=== PATIENT | male | born 1950 | race Caucasian/White ===

== ENCOUNTER 2020-06-29 12:27 | Outpatient (REF) | payer MEDICARE, BC, SELFPAY ==
[2020-06-29 14:49] LABS: Prostate Specific Antigen < 0.05 ng/mL (<0.05-4.0)
== END 2020-06-29 12:28 | disposition home or self-care (01) ==
LOC: HO.HMGCLDS 12:27
PROVIDERS: PCP Nurse Practitioner Family; Visit Provider Urology
DX: C61 Malignant neoplasm of prostate (principal); Z12.5 Encounter for screening for malignant neoplasm of prostate
CPT/HCPCS: 84153

== ENCOUNTER → 2020-07-28 09:33 | Outpatient (BNVA) | payer MEDICARE, BC, SELFPAY | PROVIDERS: PCP Nurse Practitioner Family; Referring Provider Nurse Practitioner Family; Visit Provider Internal Medicine Cardiovascular Disease | DX: I35.0 Nonrheumatic aortic (valve) stenosis (principal); I25.10 Atherosclerotic heart disease of native coronary artery without angina pectoris; Z79.82 Long term (current) use of aspirin; Z79.899 Other long term (current) drug therapy | CPT/HCPCS: 93005; 99212 ==

== ENCOUNTER 2020-08-08 08:06 | Outpatient (REF) | payer MEDICARE, BC, SELFPAY ==
[2020-08-08 11:29] LABS: MANUAL DIFF FLAG NO
[2020-08-08 11:38] LABS: Basophils Percent Auto 0.4 % (0-2); Eosinophils Absolute Auto 0.4 X10*3/uL (0.0-0.4); Eosinophils Percent Auto 5.7 % (0-4); Hematocrit 44.5 % (42-52); Hemoglobin 14.1 g/dl (14.0-18.0); Imm Gran Abs Auto 0.02 X10*3/uL (0.00-0.03); Imm Gran Pct Auto 0.3 % (0.0-0.4); Lymphocytes Absolute Auto 1.6 X10*3/uL (1.2-4.9); Lymphocytes Percent Auto 21.8 % (20-40); Mean Corpuscular HGB Conc 31.7 g/dl (31.0-36.0); Mean Corpuscular Hemoglobin 31.8 pg (27.0-33.0); Mean Corpuscular Volume 100.5 fL (80-98); Mean Platelet Volume 9.4 fL (9.4-12.4); Monocytes Absolute Auto 0.9 X10*3/uL (0.1-1.2); Monocytes Percent Auto 12.8 % (2-11); Neutrophils Absolute Auto 4.3 X10*3/uL (2.0-8.3); Platelet Count 273 X10*3/uL (160-400); Red Blood Count 4.43 X10*6/uL (4.60-5.80); White Blood Count 7.3 X10*3/uL (4.8-10.8)
[2020-08-08 12:17] LABS: TSH reflex Free T4 2.14 mIU/mL (0.32-4.0)
[2020-08-08 12:18] LABS: Anion Gap 13 (12-20); Blood Urea Nitrogen 20 mg/dL (9-16); Calcium 9.2 mg/dL (8.4-10.2); Carbon Dioxide 28 mmol/L (22-29); Chloride 104 mmol/L (96-108); Cholesterol 233 mg/dL; Estimated Glomerular Filt Rate > 60; Glucose Fasting 83 mg/dL (60-99); HDL Cholesterol 60 mg/dL; LDL Cholesterol Calculated 128 mg/dl; Potassium 3.8 mmol/l (3.3-5.1); Sodium 141 mmol/L (135-145); Triglycerides 229 mg/dL
== END 2020-08-08 08:07 | disposition home or self-care (01) ==
LOC: HO.HMGCLDS 08:06
PROVIDERS: PCP Nurse Practitioner Family; Visit Provider Internal Medicine Cardiovascular Disease
DX: E78.5 Hyperlipidemia, unspecified (principal); I10 Essential (primary) hypertension
CPT/HCPCS: 36415; 80048; 80061; 84443; 85025

== ENCOUNTER → 2020-08-17 12:58 | Outpatient (REF) | payer MEDICARE, BC, SELFPAY ==
--- NOTE | 2020-08-17 13:02 | CA_ITS ---
Transthoracic Echocardiogram Patient (Last, First, Middle): Jose Jones A Gender: Male Date of : 1950 Age: 70 Procedure Date: 08/17/2020 Procedure Type: Transthoracic Echocardiogram Location: OP Height: 167.64 cm Weight: 88.45 kg BSA: 1.98 m2 Heart Rate: bpm BP: 138 / 80 mmHg Inclusion Teacher: Referring MD: Kevyn Chapa MD Symptoms: I10 - Essential (primary) hypertension Study Quality: Fair ECG Rhythm: Sinus Conclusions: - The left ventricular systolic function is normal. The visually estimated ejection fraction is between 65-70%. - The basal inferior segment is akinetic. - There is moderate aortic valve stenosis. Findings Left Ventricle Normal left ventricular cavity size. There is moderately increased left ventricular wall thickness. The left ventricular systolic function is normal. The visually estimated ejection fraction is between 65-70%. Evidence suggests grade I (mild) diastolic dysfunction. Wall Motion Rest Echo Findings The basal inferior segment is akinetic. Right Ventricle Normal right ventricular cavity size and systolic function. Atria Both atria are normal in size. Aortic Valve There is moderate calcification of the aortic valve. There is moderate aortic valve stenosis. The peak aortic velocity is 3.46 m/s with a calculated peak gradient of 48 mmHg. The mean gradient is 27 mmHg. The aortic valve area is 1.13 cm2. There is trace (trivial) aortic valve regurgitation. Mitral Valve The mitral valve appears normal. There is trace mitral valve regurgitation. There is no mitral valve stenosis. Pulmonic Valve The pulmonic valve was not well visualized. Tricuspid Valve There is trace tricuspid valve regurgitation. The pulmonary artery systolic pressure is normal. Great Vessels The aorta was not well visualized. Small plaque is seen in the sino tubular ridge. Venous The inferior vena cava was not well visualized. Pericardium/Pleural There is no evidence of pericardial effusion. Prior Study Comparison No significant change compared to prior study dated: 07/29/2019. Measurements 2D Linear Measurements IVSd: 1.40 0.6-0.9/0.6-1.0 cm LVIDd: 4.78 3.9-5.3/4.2-5.9 cm LVIDd Index: 2.41 2.4-3.2/2.2-3.1 cm/m2 LVIDs: 3.10 2.0-3.6 cm LVPWd: 1.41 0.7-1.1 cm Ao Root: 3.80 2.1-3.5 cm LA Diam: 4.30 2.7-3.8/3.0-4.0 cm LAIDs Index: 2.17 1.5-2.3 cm/m2 LV Mass: 341.15 67-162/88-224 g LV Mass Index: 172.30 43-95/49-115 g/m2 LVOT Diam: 2.30 3.0+(-)1.3 cm Mitral Valve MV Pk E: 0.57 MV PK A: 0.86 MV Decel Time: 180.00 E/A: 0.70 E'Lateral: 7.54 E'Medial: 5.51 E/E' Med: 10.40 E/E' Lat: 7.60 PHT: 53.00 MVA PHT: 4.15 Decel [place]: 3.19 Aortic Valve AoV Pk John: 3.46 AoV Mn John: 2.44 AoV VTI: 0.75 AoV Pk Grad: 48.00 Aov Mn Grad: 27.00 SALIANS Cont.VTI: 1.13 LVOT LVOT Pk John: 0.98 LVOT Mn John: 0.63 LVOT VTI: 0.21 LVOT Pk Grad: 4.00 LVOT Mn Grad: 2.00 LVOT Diam: 2.30 LVOT Area: 4.15 Diastolic Function MV Pk E: 0.57 MV Pk A: 0.86 E/A: 0.70 E'Medial: 5.51 E/E' Med: 10.40 E' Laterial: 7.54 E/E' Lat: 7.60 Tricuspid Valve TR Pk John: 1.85 TR Pk Grad: 14.00 RA Press: 3.00 RVSP: 17.00 Great Vessels Aorta Ao Root-2D: 3.80 2.0-3.7 cm Pulmonary Valve PV Pk John: 1.47 Peak PV Grad: 9.00 Updated in Other Vendor System with Status of Final Zeb Zepeda MD electronically signed on 08/18/2020 10:39:45 AM with status of Final
== END ==
LOC: HO.CARD 12:58
PROVIDERS: Visit Provider Internal Medicine Cardiovascular Disease
DX: I25.10 Atherosclerotic heart disease of native coronary artery without angina pectoris (principal); I35.0 Nonrheumatic aortic (valve) stenosis; I10 Essential (primary) hypertension
CPT/HCPCS: 93306

== ENCOUNTER 2021-01-05 12:23 | Outpatient (REF) | payer MEDICARE, BC, SELFPAY ==
[2021-01-05 14:42] LABS: Prostate Specific Antigen < 0.05 ng/mL (<0.05-4.0)
== END 2021-01-05 12:24 | disposition home or self-care (01) ==
LOC: HO.HMGCLDS 12:23
PROVIDERS: PCP Nurse Practitioner Family; Visit Provider Urology
DX: C61 Malignant neoplasm of prostate (principal); Z12.5 Encounter for screening for malignant neoplasm of prostate
CPT/HCPCS: 36415; 84153

== ENCOUNTER 2021-04-12 10:59 | Outpatient (REF) | payer MEDICARE, BC, SELFPAY | END 2021-04-12 11:00 | disposition home or self-care (01) | LOC: HO.LAB 10:59 | PROVIDERS: Visit Provider Nurse Practitioner Family | DX: Z20.822 Contact with and (suspected) exposure to COVID-19 (principal); R05 Cough | CPT/HCPCS: U0003; U0005 ==

== ENCOUNTER 2021-04-12 11:22 | Outpatient (REF) | payer MEDICARE, BC, SELFPAY ==
--- NOTE | ~2021-04-12 | XR_ITS ---
EXAMINATION: XR CHEST CLINICAL INFORMATION: Cough COMPARISON: None TECHNIQUE: 2 views of the chest were obtained. FINDINGS: The cardiac silhouette is enlarged. 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 Hilar and mediastinal contours are unremarkable. The lung volumes are low. The lungs are clear. There is no pleural effusion or pneumothorax. There are degenerative changes of the spine. There is increased thoracolumbar kyphosis. XR/XR chest 2V IMPRESSION: No evidence for acute disease in the chest. Low lung volumes and post-CABG changes.
== END 2021-04-12 11:23 | disposition home or self-care (01) ==
LOC: HO.HMGCX 11:22
PROVIDERS: PCP Nurse Practitioner Family; Visit Provider Nurse Practitioner Family
DX: Z13.89 Encounter for screening for other disorder (principal)
CPT/HCPCS: 71046

== ENCOUNTER 2021-06-28 08:13 | Outpatient (REF) | payer MEDICARE, BC, SELFPAY ==
[2021-06-28 11:32] LABS: Appearance Urine CLEAR; Color Urine YELLOW; Glucose Urine UA NEG (NEG); Leukocyte Esterase Urine NEG (NEG); Nitrite Urine NEG (NEG); Specific Gravity - Urine 1.025 (1.005-1.025); Urine Blood NEG (NEG); Urine Ketones NEG (NEG); Urine Protein NEG (NEG-TRACE)
[2021-06-28 11:56] LABS: Anion Gap 13 (12-20); Carbon Dioxide 26 mmol/L (22-29); Chloride 107 mmol/L (96-108); Potassium 4.5 mmol/L (3.3-5.1); Sodium 141 mmol/L (135-145)
[2021-06-28 11:57] LABS: Alanine Aminotransferase 25 U/L (0-40); Alkaline Phosphatase 41 U/L (39-117); Aspartate Amino Transferase 31 U/L (5-37); Bilirubin Total 0.9 mg/dL (0.0-1.0); Blood Urea Nitrogen 14 mg/dL (9-16); Calcium 9.8 mg/dL (8.4-10.2); Cholesterol 212 mg/dL; Estimated Glomerular Filt Rate > 60; Glucose Fasting 96 mg/dL (60-99); HDL Cholesterol 51 mg/dL; LDL Cholesterol Calculated 130 mg/dl; Total Protein 6.8 g/dL (6.5-8.0); Triglycerides 156 mg/dL
[2021-06-28 12:19] LABS: Prostate Specific Antigen < 0.05 ng/mL (<0.05-4.0); TSH reflex Free T4 1.78 uIU/mL (0.32-4.0)
== END 2021-06-28 08:14 | disposition home or self-care (01) ==
LOC: HO.HMGCLDS 08:13
PROVIDERS: PCP Nurse Practitioner Family; Visit Provider Physician Assistant
DX: C61 Malignant neoplasm of prostate (principal); I10 Essential (primary) hypertension
CPT/HCPCS: 36415; 80053; 80061; 81003; 84153; 84443

== ENCOUNTER → 2021-07-27 10:12 | Outpatient (BNVA) | payer MEDICARE, BC, SELFPAY | PROVIDERS: PCP Nurse Practitioner Family; Referring Provider Nurse Practitioner Family; Visit Provider Internal Medicine Cardiovascular Disease ==

== ENCOUNTER → 2021-08-02 07:38 | Outpatient (REF) | payer MEDICARE, BC, SELFPAY ==
--- NOTE | 2021-08-02 07:41 | CA_ITS ---
Transthoracic Echocardiogram Patient (Last, First, Middle): Jose Joens A Gender: Male Date of : 1950 Age: 71 Procedure Date: 08/02/2021 Procedure Type: Transthoracic Echocardiogram Location: OP Height: 165.1 cm Weight: 88.45 kg BSA: 1.96 m2 Heart Rate: bpm BP: 138 / 80 mmHg Manager Of Customer Billing: Referring MD: Kevyn Chapa MD Histologist: Kevyn Chapa MD Symptoms: I35.0 - Nonrheumatic aortic (valve) stenosis Study Quality: Fair ECG Rhythm: Sinus Conclusions: - 1. Normal LV systolic function with impaired relaxation filling pattern with regional wall motion abnormality of the inferior wall 2. Severe aortic stenosis 3. Normal RV systolic pressure 4. No gross pericardial effusion Findings Left Ventricle Normal left ventricular size and systolic function. There is mildly increased left ventricular wall thickness. The visually estimated ejection fraction is between 55-60%. Spectral Doppler is indicative of an impaired relaxation filling pattern. E/E prime ratio is between 8 and 15 consistent with indeterminate filling pressures. Wall Motion Rest Echo Findings The basal inferior, mid inferior, and basal inferoseptal segments are akinetic. All other scored wall segments showed normal motion. Right Ventricle Normal right ventricular cavity size and systolic function. Atria The left atrium is likely dilated. Interatrial shunt cannot be excluded. The right atrium is normal in size. Aortic Valve The aortic valve was not well visualized. There is moderate calcification of the aortic valve. There is severe aortic valve stenosis. The peak aortic gradient is 52 mmHg.The mean gradient is 35 mmHg. The aortic valve area is 0.85 cm2. There is no aortic valve regurgitation. Calculated dimensionless index is 0.21, findings consistent with severe aortic stenosis. Mitral Valve The mitral valve was not well visualized. There is mild anterior mitral leaflet thickening. There is mild mitral annular calcification. There is trace mitral valve regurgitation. There is no mitral valve stenosis. Pulmonic Valve The pulmonic valve was not well visualized. Tricuspid Valve Likely normal tricuspid valve structure and function. There is trace tricuspid valve regurgitation. The right ventricular systolic pressure is normal. The right ventricular systolic pressure is 23 mmHg. There is no evidence of pulmonary hypertension. Great Vessels All visible segments of the aorta are normal in size. The pulmonary artery was not well visualized. Venous The inferior vena cava is normal in size. Pericardium/Pleural There is no evidence of pericardial effusion. Prior Study Comparison Changes noted compared to prior study dated: 08/17/2020. Aortic stenosis is severe range Measurements 2D Linear Measurements IVSd: 1.38 0.6-0.9/0.6-1.0 cm LVIDd: 4.48 3.9-5.3/4.2-5.9 cm LVIDd Index: 2.29 2.4-3.2/2.2-3.1 cm/m2 LVIDs: 3.07 2.0-3.6 cm LVPWd: 1.34 0.7-1.1 cm Ao Root: 3.50 2.1-3.5 cm LA Diam: 4.00 2.7-3.8/3.0-4.0 cm LAIDs Index: 2.04 1.5-2.3 cm/m2 LV Mass: 294.67 67-162/88-224 g LV Mass Index: 150.34 43-95/49-115 g/m2 LVOT Diam: 2.30 3.0+(-)1.3 cm 2D Systolic Function EF 4C: 47.20 >55% EF 2C: 33.30 >55% Mitral Valve MV Pk E: 0.59 MV PK A: 0.99 MV Decel Time: 211.00 E/A: 0.60 E'Lateral: 7.72 E'Medial: 4.03 E/E' Med: 14.60 E/E' Lat: 7.60 PHT: 62.00 MVA PHT: 3.55 Decel [place]: 2.78 Aortic Valve AoV Pk John: 3.62 AoV Mn John: 2.88 AoV VTI: 0.92 AoV Pk Grad: 52.00 Aov Mn Grad: 35.00 SALINAS Cont.VTI: 0.85 LVOT LVOT Pk John: 0.80 LVOT Mn John: 0.48 LVOT VTI: 0.19 LVOT Pk Grad: 3.00 LVOT Mn Grad: 1.00 LVOT Diam: 2.30 LVOT Area: 4.15 Diastolic Function MV Pk E: 0.59 MV Pk A: 0.99 E/A: 0.60 E'Medial: 4.03 E/E' Med: 14.60 E' Laterial: 7.72 E/E' Lat: 7.60 Right Ventricle TAPSE (mm): 19.00 Tricuspid Valve TR Pk John: 2.25 TR Pk Grad: 20.00 RA Press: 3.00 RVSP: 23.00 Great Vessels Aorta Ao Root-2D: 3.50 2.0-3.7 cm Ao Asc: 3.70 2.1-3.4 cm Pulmonary Valve PV Pk John: 1.05 Peak PV Grad: 4.00 Updated in Other Vendor System with Status of Final Kevyn Chapa MD electronically signed on 08/04/2021 10:04:02 AM with status of Final
== END ==
LOC: HO.CARD 07:38
PROVIDERS: Visit Provider Internal Medicine Cardiovascular Disease
DX: I35.0 Nonrheumatic aortic (valve) stenosis (principal); I25.10 Atherosclerotic heart disease of native coronary artery without angina pectoris; Z79.899 Other long term (current) drug therapy
CPT/HCPCS: 93005; 93306; 99212

== ENCOUNTER → 2021-08-09 09:23 | Outpatient (BNVA) | payer MEDICARE, BC, SELFPAY | PROVIDERS: PCP Nurse Practitioner Family; Referring Provider Nurse Practitioner Family; Visit Provider Internal Medicine Cardiovascular Disease | DX: I35.0 Nonrheumatic aortic (valve) stenosis (principal); I25.10 Atherosclerotic heart disease of native coronary artery without angina pectoris | CPT/HCPCS: 99212 ==

== ENCOUNTER → 2021-08-18 08:23 | Outpatient (REF) | payer MEDICARE, BC, SELFPAY ==
--- NOTE | 2021-08-18 08:25 | CA_ITS ---
Acquisition Time: 2021-08-18 09:23:29 Total Exercise Time: 00:06:00 Test Indications: SEVERE AORTIC STENOSIS Medications: Protocol: LINNETTE Max HR: 144 BPM 95% of Pred: 151 BPM Max BP: 138/080 mmHG Max Work Load: 7.0 METS Exercise stress test with exercise 6 min of Linnette protocol, with mild sob and request to stop, with no chest discomfort or lightheadedness, with isolated PVC, with blunted BP response to exercise, BP 128/80 just prior to exercise and 132/70 at peak exercise, then 138/80 at 3 min recovery, with EKG changes meeting criteria for ischemia: horizontal to downsloping ST depressions, 1 mm V5, 1.5 mm aVL, V3, V4, 2 mm lead I, 3mm V2 with slow gradual improvement back to baseline in recovery. His mild sob quickly improved with rest. Test reviewed with Dr Chapa. Referred By: Kevyn Chapa Overread By: BRETT HAWK
== END ==
LOC: HO.CARD 08:23
PROVIDERS: Visit Provider Internal Medicine Cardiovascular Disease
DX: I35.0 Nonrheumatic aortic (valve) stenosis (principal)
CPT/HCPCS: 93017

== ENCOUNTER 2021-09-28 08:06 | Outpatient (REF) | payer MEDICARE, BC, SELFPAY ==
[2021-09-28 11:30] LABS: Appearance Urine CLEAR; Color Urine YELLOW; Glucose Urine UA NEG (NEG); Leukocyte Esterase Urine NEG (NEG); Nitrite Urine NEG (NEG); PH 6.5 (5.0-8.0); Urine Blood NEG (NEG); Urine Ketones NEG (NEG); Urine Protein NEG (NEG-TRACE)
[2021-09-28 12:04] LABS: Alanine Aminotransferase 28 U/L (0-40); Alkaline Phosphatase 38 U/L (39-117); Anion Gap 9 (12-20); Aspartate Amino Transferase 29 U/L (5-37); Bilirubin Total 0.6 mg/dL (0.0-1.0); Blood Urea Nitrogen 17 mg/dL (9-16); Calcium 9.7 mg/dL (8.4-10.2); Carbon Dioxide 29 mmol/L (22-29); Chloride 107 mmol/L (96-108); Cholesterol 109 mg/dL; Estimated Glomerular Filt Rate > 60; Glucose Fasting 90 mg/dL (60-99); HDL Cholesterol 58 mg/dL; LDL Cholesterol Calculated 27 mg/dl; Potassium 4.1 mmol/L (3.3-5.1); Sodium 141 mmol/L (135-145); Total Protein 6.8 g/dL (6.5-8.0); Triglycerides 124 mg/dL
== END 2021-09-28 08:07 | disposition home or self-care (01) ==
LOC: HO.HMGCLDS 08:06
PROVIDERS: PCP Nurse Practitioner Family; Visit Provider Nurse Practitioner Family
DX: E78.5 Hyperlipidemia, unspecified (principal)
CPT/HCPCS: 36415; 80053; 80061; 81003; 84443

== ENCOUNTER → 2021-10-05 15:12 | Outpatient (BNVA) | payer MEDICARE, BC, SELFPAY | PROVIDERS: PCP Nurse Practitioner Family; Referring Provider Nurse Practitioner Family; Visit Provider Internal Medicine Cardiovascular Disease | DX: I35.0 Nonrheumatic aortic (valve) stenosis (principal); I25.10 Atherosclerotic heart disease of native coronary artery without angina pectoris | CPT/HCPCS: 99212 ==

== ENCOUNTER 2021-11-17 09:41 | Outpatient (REF) | payer MEDICARE, BC, SELFPAY ==
[2021-11-17 11:51] LABS: Hematocrit 47.4 % (42.0-52.0); Hemoglobin 15.4 g/dl (14.0-18.0); Mean Corpuscular HGB Conc 32.5 g/dl (31.0-36.0); Mean Corpuscular Hemoglobin 31.4 pg (27.0-33.0); Mean Corpuscular Volume 96.7 fL (80.0-98.0); Mean Platelet Volume 9.8 fL (9.4-12.4); Platelet Count 291 X10*3/uL (160-400); Red Cell Distribution Width 13.2 % (11.0-16.0)
[2021-11-17 12:17] LABS: Anion Gap 12 (12-20); Blood Urea Nitrogen 15 mg/dL (9-16); Calcium 9.9 mg/dL (8.4-10.2); Carbon Dioxide 28 mmol/L (22-29); Chloride 106 mmol/L (96-108); Estimated Glomerular Filt Rate > 60; Glucose Random 92 mg/dL (60-115); Potassium 4.3 mmol/L (3.3-5.1); Sodium 142 mmol/L (135-145)
== END 2021-11-17 09:42 | disposition home or self-care (01) ==
LOC: HO.HMGCLDS 09:41
PROVIDERS: PCP Nurse Practitioner Family; Visit Provider Internal Medicine Cardiovascular Disease
DX: I25.10 Atherosclerotic heart disease of native coronary artery without angina pectoris (principal); I10 Essential (primary) hypertension
CPT/HCPCS: 36415; 80048; 85027

== ENCOUNTER → 2021-12-14 12:43 | Outpatient (BNVA) | payer MEDICARE, BC, SELFPAY | PROVIDERS: PCP Nurse Practitioner Family; Referring Provider Nurse Practitioner Family; Visit Provider Internal Medicine Cardiovascular Disease | DX: I20.8 Other forms of angina pectoris (principal); I25.10 Atherosclerotic heart disease of native coronary artery without angina pectoris; I35.0 Nonrheumatic aortic (valve) stenosis | CPT/HCPCS: 99212 ==

== ENCOUNTER → 2022-02-15 09:42 | Outpatient (BNVA) | payer MEDICARE, BC, SELFPAY | PROVIDERS: PCP Nurse Practitioner Family; Referring Provider Nurse Practitioner Family; Visit Provider Internal Medicine Cardiovascular Disease | DX: I25.118 Atherosclerotic heart disease of native coronary artery with other forms of angina pectoris (principal); I35.0 Nonrheumatic aortic (valve) stenosis; Z79.899 Other long term (current) drug therapy | CPT/HCPCS: 93005; 99212 ==

== ENCOUNTER 2022-05-02 09:11 | Outpatient (REF) | payer MEDICARE, BC, SELFPAY ==
[2022-05-04 21:16] LABS: Lyme Abs Screen <0.90 index
== END 2022-05-02 09:12 | disposition home or self-care (01) ==
LOC: HO.HMGCLDS 09:11
PROVIDERS: Absent Provider Family Medicine; PCP Nurse Practitioner Family; Visit Provider Nurse Practitioner Family
DX: R21 Rash and other nonspecific skin eruption (principal)
CPT/HCPCS: 36415; 86617; 86618

== ENCOUNTER 2022-05-09 09:11 | Outpatient (REF) | payer MEDICARE, BC, SELFPAY ==
[2022-05-09 11:05] LABS: MANUAL DIFF FLAG NO
[2022-05-09 11:20] LABS: Basophils Percent Auto 0.3 % (0-2); Eosinophils Absolute Auto 0.3 X10*3/uL (0.0-0.4); Hematocrit 44.4 % (42.0-52.0); Hemoglobin 14.6 g/dl (14.0-18.0); Imm Gran Abs Auto 0.03 X10*3/uL (0.00-0.03); Imm Gran Pct Auto 0.3 % (0.0-0.4); Lymphocytes Absolute Auto 1.4 X10*3/uL (1.2-4.9); Lymphocytes Percent Auto 15.7 % (20-40); Mean Corpuscular HGB Conc 32.9 g/dl (31.0-36.0); Mean Corpuscular Hemoglobin 30.4 pg (27.0-33.0); Mean Corpuscular Volume 92.3 fL (80.0-98.0); Mean Platelet Volume 9.6 fL (9.4-12.4); Neutrophils Absolute Auto 6.1 x10*3/uL (2.0-8.3); Neutrophils Percent Auto 69.7 % (45-73); Platelet Count 270 X10*3/uL (160-400); Red Blood Count 4.81 X10*6/uL (4.60-5.80); Red Cell Distribution Width 13.2 % (11.0-16.0); White Blood Count 8.7 X10*3/uL (4.8-10.8)
[2022-05-09 11:24] LABS: Appearance Urine Turbid; Color Urine Yellow; Glucose Urine UA Negative (Negative); Leukocyte Esterase Urine Negative (Negative); Nitrite Urine Negative (Negative); Specific Gravity - Urine <= 1.005 (1.005-1.025); Urine Blood Negative (Negative); Urine Ketones Negative (Negative); Urine Protein Negative (Neg-Trace)
[2022-05-09 11:51] LABS: Alanine Aminotransferase 27 U/L (0-40); Albumin Level 4.1 g/dL (3.5-5.0); Alkaline Phosphatase 40 U/L (39-117); Anion Gap 14 (12-20); Aspartate Amino Transferase 28 U/L (5-37); Bilirubin Total 0.7 mg/dL (0.0-1.0); Blood Urea Nitrogen 14 mg/dL (9-16); Calcium 9.4 mg/dL (8.4-10.2); Carbon Dioxide 25 mmol/L (22-29); Chloride 108 mmol/L (96-108); Cholesterol 73 mg/dL; Estimated Glomerular Filt Rate > 60; Glucose Fasting 84 mg/dL (60-99); HDL Cholesterol 45 mg/dL; LDL Cholesterol Calculated 8 mg/dl; Potassium 4.2 mmol/L (3.3-5.1); Sodium 143 mmol/L (135-145); Total Protein 6.8 g/dL (6.5-8.0); Triglycerides 100 mg/dL
[2022-05-09 12:53] LABS: Folate > 20.0 ng/mL (> or = 4.0); Vitamin B12 466 pg/mL (200-900)
[2022-05-11 13:36] LABS: A. Phagocytphilium DNA,RT-PCR NOT DETECTED (NOT DETECTED); Babesia Microti DNA, RT-PCR NOT DETECTED (NOT DETECTED); Borrelia Miyamotoi,DNA RT-PCR NOT DETECTED (NOT DETECTED); E.Chaffeensis DNA RT-PCR NOT DETECTED (NOT DETECTED); Lyme(Borrelia ssp)DNA RT-PCR NOT DETECTED (NOT DETECTED)
[2022-05-11 16:26] LABS: Source-Tick borne disease BLOOD
[2022-05-17 14:31] LABS: Testosterone, Free 37.7 pg/mL (30.0-135.0); Testosterone, Total 438 ng/dL (250-1100)
== END 2022-05-09 09:12 | disposition home or self-care (01) ==
LOC: HO.HMGCLDS 09:11
PROVIDERS: PCP Nurse Practitioner Family; Visit Provider Nurse Practitioner Family
DX: E78.5 Hyperlipidemia, unspecified (principal); R53.83 Other fatigue; I10 Essential (primary) hypertension
CPT/HCPCS: 36415; 80053; 80061; 81003; 82607; 82746; 84402; 84403; 84443; 85025; 87798; 87801

== ENCOUNTER → 2022-05-23 11:25 | Outpatient (REF) | payer MEDICARE, BC, SELFPAY ==
--- NOTE | 2022-05-23 11:28 | HM_ITS ---
Conclusion: 1. Patient was monitored for total period of 3 days 2. Baseline was normal sinus rhythm with average heart rate of 78 beats per minute 3. No significant pauses or bradycardia noted 4. Occasional PACs and PVCs noted mostly isolated 5. No sustained arrhythmias noted 6. No patient reported events MTDD
== END ==
LOC: HO.CARD 11:25
PROVIDERS: PCP Nurse Practitioner Family; Visit Provider Internal Medicine Cardiovascular Disease
DX: R53.83 Other fatigue (principal); I35.0 Nonrheumatic aortic (valve) stenosis; I49.1 Atrial premature depolarization; I49.3 Ventricular premature depolarization
CPT/HCPCS: 93242

== ENCOUNTER 2022-07-06 11:45 | Outpatient (REF) | payer MEDICARE, BC, SELFPAY ==
[2022-07-06 14:07] LABS: Appearance Urine Clear; Color Urine Yellow; Glucose Urine UA Negative (Negative); Leukocyte Esterase Urine Negative (Negative); Nitrite Urine Negative (Negative); Specific Gravity - Urine >= 1.030 (1.005-1.025); Urine Blood Negative (Negative); Urine Ketones Negative (Negative); Urine Protein Negative (Neg-Trace)
[2022-07-06 14:32] LABS: TSH reflex Free T4 1.43 uIU/mL (0.32-4.0)
[2022-07-06 14:47] LABS: Prostate Specific Antigen < 0.05 ng/mL (<0.05-4.0)
== END 2022-07-06 11:46 | disposition home or self-care (01) ==
LOC: HO.HMGCLDS 11:45
PROVIDERS: Urology; Absent Provider Physician Assistant; PCP Nurse Practitioner Family; Visit Provider Nurse Practitioner Family
DX: Z12.5 Encounter for screening for malignant neoplasm of prostate (principal); C61 Malignant neoplasm of prostate; E78.5 Hyperlipidemia, unspecified; R53.83 Other fatigue; I10 Essential (primary) hypertension
CPT/HCPCS: 36415; 81003; 84153; 84443

== ENCOUNTER → 2022-08-23 09:38 | Outpatient (BNVA) | payer MEDICARE, BC, SELFPAY | PROVIDERS: PCP Nurse Practitioner Family; Referring Provider Nurse Practitioner Family; Visit Provider Internal Medicine Cardiovascular Disease | DX: I25.118 Atherosclerotic heart disease of native coronary artery with other forms of angina pectoris (principal); I35.0 Nonrheumatic aortic (valve) stenosis | CPT/HCPCS: 99212 ==

== ENCOUNTER → 2022-08-27 12:51 | Outpatient (REF) | payer MEDICARE, BC, SELFPAY ==
--- NOTE | 2022-08-27 12:54 | CA_ITS ---
Transthoracic Echocardiogram Patient (Last, First, Middle): Jose Jones A Gender: Male Date of : 1950 Age: 72 Procedure Date: 08/27/2022 Procedure Type: Transthoracic Echocardiogram Location: OP Height: 167.64 cm Weight: 87.54 kg BSA: 1.97 m2 Heart Rate: 71 bpm BP: 152 / 70 mmHg Inside Tester: SB Referring MD: Kevyn Chapa MD Symptoms: I35.0 - Nonrheumatic aortic (valve) stenosis Study Quality: Adequate w contrast ECG Rhythm: Sinus Conclusions: - The left ventricular systolic function is normal. The calculated ejection fraction is 68% by biplane method. - Moderate to severe concentric left ventricular hypertrophy. - The inferoseptal wall and basal inferior segment are akinetic. - There is moderately decreased right ventricular systolic function. - There is severe aortic valve stenosis. Findings Procedure Information Contrast agent, definity, is being given per protocol without apparent complications. Left Ventricle Normal left ventricular cavity size. The left ventricular systolic function is normal. The calculated ejection fraction is 68% by biplane method. There is evidence of regional wall motion abnormalities. Diastolic function is normal for age. Moderate to severe concentric left ventricular hypertrophy. Wall Motion Rest Echo Findings The inferoseptal wall and basal inferior segment are akinetic. Right Ventricle Normal right ventricular cavity size. There is moderately decreased right ventricular systolic function. Atria Both atria are normal in size. Aortic Valve There is mild calcification of the aortic valve. There is severe aortic valve stenosis. The peak aortic gradient is 77 mmHg.The mean gradient is 45 mmHg. The aortic valve area is 0.83 cm2. There is no aortic valve regurgitation. Mitral Valve The mitral valve appears normal. There is no mitral valve regurgitation. There is no mitral valve stenosis. Pulmonic Valve The pulmonic valve is likely normal. Tricuspid Valve There is trace tricuspid valve regurgitation. There is no evidence of pulmonary hypertension. Great Vessels The asc aorta is normal in size. Venous The inferior vena cava was not well visualized. The inferior vena cava is normal in size. Pericardium/Pleural There is no evidence of pericardial effusion. Prior Study Comparison Changes noted compared to prior study dated: 08/02/2021. Increase in aortic valve gradients. Left ventricular hypertrophy more prominent. Measurements 2D Linear Measurements IVSd: 1.09 0.6-0.9/0.6-1.0 cm LVIDd: 5.29 3.9-5.3/4.2-5.9 cm LVIDd Index: 2.69 2.4-3.2/2.2-3.1 cm/m2 LVIDs: 3.53 2.0-3.6 cm LA Diam: 3.90 2.7-3.8/3.0-4.0 cm LAIDs Index: 1.98 1.5-2.3 cm/m2 LVOT Diam: 2.30 3.0+(-)1.3 cm 2D Systolic Function EF 4C: 68.10 >55% EF 2C: 66.90 >55% EF BiP: 68.40 >55% Mitral Valve MV Pk E: 0.65 MV PK A: 1.04 MV Decel Time: 269.00 E/A: 0.60 E'Lateral: 7.94 E'Medial: 6.64 E/E' Med: 9.80 E/E' Lat: 8.20 PHT: 79.00 MVA PHT: 2.78 Decel [place]: 2.42 Aortic Valve AoV Pk John: 4.38 AoV Mn John: 3.21 AoV VTI: 1.09 AoV Pk Grad: 77.00 Aov Mn Grad: 45.00 SALINAS Cont.VTI: 0.83 LVOT LVOT Pk John: 1.01 LVOT Mn John: 0.70 LVOT VTI: 0.22 LVOT Pk Grad: 4.00 LVOT Mn Grad: 2.00 LVOT Diam: 2.30 LVOT Area: 4.15 Diastolic Function MV Pk E: 0.65 MV Pk A: 1.04 E/A: 0.60 E'Medial: 6.64 E/E' Med: 9.80 E' Laterial: 7.94 E/E' Lat: 8.20 Right Ventricle TAPSE (mm): 10.70 TVS' John: 8.90 Tricuspid Valve RA Press: 3.00 Great Vessels Aorta Sinus of Valsalva: 3.50 2.0-3.5 cm Ao Asc: 3.00 2.1-3.4 cm Pulmonary Valve PV Pk John: 1.25 Peak PV Grad: 6.00 Updated in Other Vendor System with Status of Final Zeb Zepeda MD electronically signed on 08/29/2022 9:20:46 AM with status of Final
== END ==
LOC: HO.CARD 12:51
PROVIDERS: PCP Nurse Practitioner Family; Visit Provider Internal Medicine Cardiovascular Disease
DX: I35.0 Nonrheumatic aortic (valve) stenosis (principal)
CPT/HCPCS: 93306; Q9957

== ENCOUNTER 2023-02-01 07:00 | Outpatient (REF) | payer MEDICARE, BC, SELFPAY ==
[2023-02-01 11:23] LABS: MANUAL DIFF FLAG NO
[2023-02-01 11:33] LABS: Basophils Percent Auto 0.6 % (0-2); Eosinophils Absolute Auto 0.4 X10*3/uL (0.0-0.4); Eosinophils Percent Auto 5.1 % (0-4); Hematocrit 45.2 % (42.0-52.0); Hemoglobin 14.8 g/dl (14.0-18.0); Imm Gran Abs Auto 0.02 X10*3/uL (0.00-0.03); Imm Gran Pct Auto 0.3 % (0.0-0.4); Lymphocytes Absolute Auto 1.6 X10*3/uL (1.2-4.9); Lymphocytes Percent Auto 22.1 % (20-40); Mean Corpuscular HGB Conc 32.7 g/dl (31.0-36.0); Mean Corpuscular Hemoglobin 31.8 pg (27.0-33.0); Mean Corpuscular Volume 97.2 fL (80.0-98.0); Mean Platelet Volume 9.9 fL (9.4-12.4); Monocytes Absolute Auto 0.8 X10*3/uL (0.1-1.2); Monocytes Percent Auto 11.3 % (2-11); Neutrophils Absolute Auto 4.3 x10*3/uL (2.0-8.3); Neutrophils Percent Auto 60.6 % (45-73); Platelet Count 238 X10*3/uL (160-400); Red Blood Count 4.65 X10*6/uL (4.60-5.80); Red Cell Distribution Width 13.2 % (11.0-16.0); White Blood Count 7.1 X10*3/uL (4.8-10.8)
[2023-02-01 11:34] LABS: Appearance Urine Clear; Color Urine Yellow; Glucose Urine UA Negative (Negative); Leukocyte Esterase Urine Negative (Negative); Nitrite Urine Negative (Negative); Urine Blood Negative (Negative); Urine Ketones Negative (Negative); Urine Protein Negative (Neg-Trace)
[2023-02-01 11:59] LABS: Alanine Aminotransferase 22 U/L (0-40); Alkaline Phosphatase 37 U/L (39-117); Anion Gap 12 (12-20); Aspartate Amino Transferase 29 U/L (5-37); Bilirubin Total 0.7 mg/dL (0.0-1.0); Blood Urea Nitrogen 14 mg/dL (9-16); Calcium 9.4 mg/dL (8.4-10.2); Carbon Dioxide 26 mmol/L (22-29); Chloride 110 mmol/L (96-108); Cholesterol 94 mg/dL; Estimated Glomerular Filt Rate > 60; Glucose Fasting 85 mg/dL (60-99); HDL Cholesterol 56 mg/dL; LDL Cholesterol Calculated 23 mg/dl; Potassium 3.8 mmol/L (3.3-5.1); Sodium 144 mmol/L (135-145); Total Protein 6.7 g/dL (6.5-8.0); Triglycerides 79 mg/dL
[2023-02-01 12:17] LABS: TSH reflex Free T4 1.88 uIU/mL (0.32-4.0)
== END 2023-02-01 07:01 | disposition home or self-care (01) ==
LOC: HO.HMGCLDS 07:00
PROVIDERS: PCP Nurse Practitioner Family; Visit Provider Nurse Practitioner Family
DX: I10 Essential (primary) hypertension (principal); E78.5 Hyperlipidemia, unspecified
CPT/HCPCS: 36415; 80053; 80061; 81003; 84443; 85025

== ENCOUNTER → 2023-02-06 08:00 | Outpatient (REF) | payer MEDICARE, BC, SELFPAY ==
--- NOTE | 2023-02-06 08:02 | CA_ITS ---
Transthoracic Echocardiogram Patient (Last, First, Middle): Jose Jones A Gender: Male Date of : 1950 Age: 73 Procedure Date: 02/06/2023 Procedure Type: Transthoracic Echocardiogram Location: OP Height: 167.64 cm Weight: 87.09 kg BSA: 1.97 m2 Heart Rate: 71 bpm BP: 150 / 68 mmHg Family Mediator: SB Referring MD: Kevyn Chapa MD Symptoms: I35.0 - Nonrheumatic aortic (valve) stenosis Study Quality: Fair ECG Rhythm: Sinus Conclusions: - 1. Normal LV systolic function with mild LVH with moderate asymmetric septal hypertrophy with regional wall motion abnormality consistent underlying coronary artery disease with impaired relaxation filling pattern 2. Severe aortic stenosis with mean gradient of 47 mmHg 3. No gross pericardial effusion Findings Procedure Information Contrast agent, definity, is being given per protocol without apparent complications. Left Ventricle Normal left ventricular size and systolic function. There is mildly increased left ventricular wall thickness. The visually estimated ejection fraction is between 60-65%. Spectral Doppler is indicative of an impaired relaxation filling pattern. E/E prime ratio is between 8 and 15 consistent with indeterminate filling pressures. There is moderate septal asymmetric hypertrophy. Wall Motion Rest Echo Findings The basal inferoseptal segment is hypokinetic. The basal inferior segment is akinetic. All other scored wall segments showed normal motion. Right Ventricle Normal right ventricular cavity size. There is severely decreased right ventricular systolic function. Atria The left atrium is normal in size. Interatrial shunt cannot be excluded. The right atrium was not well visualized. Aortic Valve There is moderate calcification of the aortic valve. There is moderate thickening of the aortic valve. There is severe aortic valve stenosis. The mean gradient is 47 mmHg. The aortic valve area is 0.86 cm2. There is no aortic valve regurgitation. Mitral Valve There is mild anterior and posterior mitral leaflet thickening. There is mild mitral annular calcification. There is trace mitral valve regurgitation. There is no mitral valve stenosis. Pulmonic Valve The pulmonic valve was not well visualized. Tricuspid Valve The tricuspid valve was not well visualized. Tricuspid regurgitation envelope is inadequate for calculation of right ventricular systolic pressure. Normal right atrial pressure. Great Vessels All visible segments of the aorta are normal in size. The pulmonary artery was not well visualized. Venous The inferior vena cava is normal in size and collapses greater than 50% with inspiration. Pericardium/Pleural There is no evidence of pericardial effusion. Prior Study Comparison No significant change compared to prior study dated: 08/27/2022. Measurements 2D Linear Measurements IVSd: 1.12 0.6-0.9/0.6-1.0 cm LVIDd: 5.32 3.9-5.3/4.2-5.9 cm LVIDd Index: 2.70 2.4-3.2/2.2-3.1 cm/m2 LVIDs: 3.88 2.0-3.6 cm LA Diam: 3.70 2.7-3.8/3.0-4.0 cm LAIDs Index: 1.88 1.5-2.3 cm/m2 LVOT Diam: 2.20 3.0+(-)1.3 cm 2D Systolic Function EF 4C: 72.50 >55% EF 2C: 57.60 >55% EF BiP: 64.90 >55% Mitral Valve MV Pk E: 0.66 MV PK A: 1.14 MV Decel Time: 244.00 E/A: 0.60 E'Lateral: 5.33 E'Medial: 3.70 E/E' Med: 17.70 E/E' Lat: 12.30 PHT: 72.00 MVA PHT: 3.06 Decel [place]: 2.68 Aortic Valve AoV Pk John: 4.21 AoV Mn John: 3.28 AoV VTI: 0.99 AoV Pk Grad: 71.00 Aov Mn Grad: 47.00 SALINAS Cont.VTI: 0.86 LVOT LVOT Pk John: 1.11 LVOT Mn John: 0.78 LVOT VTI: 0.24 LVOT Pk Grad: 5.00 LVOT Mn Grad: 3.00 LVOT Diam: 2.20 LVOT Area: 3.80 Diastolic Function MV Pk E: 0.66 MV Pk A: 1.14 E/A: 0.60 E'Medial: 3.70 E/E' Med: 17.70 E' Laterial: 5.33 E/E' Lat: 12.30 Right Ventricle TAPSE (mm): 6.10 TVS' John: 8.40 Tricuspid Valve RA Press: 3.00 Great Vessels Aorta Sinus of Valsalva: 3.40 2.0-3.5 cm Ao Asc: 3.40 2.1-3.4 cm Pulmonary Veins Pulm Vein S/D 1.20 Pulmonary Valve PV Pk John: 1.33 Peak PV Grad: 7.00 Updated in Other Vendor System with Status of Final Kevyn Chapa MD electronically signed on 02/07/2023 10:41:15 AM with status of Final
== END ==
LOC: HO.CARD 08:00
PROVIDERS: PCP Nurse Practitioner Family; Visit Provider Internal Medicine Cardiovascular Disease
DX: I25.10 Atherosclerotic heart disease of native coronary artery without angina pectoris (principal); I35.0 Nonrheumatic aortic (valve) stenosis
CPT/HCPCS: 93306; Q9957

== ENCOUNTER → 2023-02-14 09:53 | Outpatient (BNVA) | payer MEDICARE, BC, SELFPAY | PROVIDERS: PCP Nurse Practitioner Family; Referring Provider Nurse Practitioner Family; Visit Provider Internal Medicine Cardiovascular Disease | DX: I35.0 Nonrheumatic aortic (valve) stenosis (principal); I25.10 Atherosclerotic heart disease of native coronary artery without angina pectoris; Z79.899 Other long term (current) drug therapy | CPT/HCPCS: 99212 ==

== ENCOUNTER → 2023-05-15 10:55 | Outpatient (REF) | payer MEDICARE, BC, SELFPAY ==
--- NOTE | 2023-05-15 10:57 | CA_ITS ---
Transthoracic Echocardiogram Patient (Last, First, Middle): Jose Jones A Gender: Male Date of : 1950 Age: 73 Procedure Date: 05/15/2023 Procedure Type: Transthoracic Echocardiogram Location: OP Height: 170.18 cm Weight: 86.18 kg BSA: 1.98 m2 Heart Rate: bpm BP: 124 / 70 mmHg Diagnostic Radiologist: Referring MD: Lokesh Baxter MD Child Welfare Worker: Kevyn Chapa MD Symptoms: S/P TRANS AORTIC VALVE REPLACEMENT Study Quality: Fair Conclusions: - 1. Low normal LV ejection fraction of 50-55% with moderate LVH and impaired relaxation filling pattern 2. Mildly dilated left atrium 3. Normally function bioprosthetic aortic valve with mean gradient of 10 mmHg 4. Normal RV systolic pressure 5. No gross pericardial effusion Findings Left Ventricle Normal left ventricular cavity size. There is moderately increased left ventricular wall thickness. The left ventricular systolic function is low normal. The visually estimated ejection fraction is between 50-55%. There is paradoxical septal motion consistent with a right ventricular pacemaker. Spectral Doppler is indicative of an impaired relaxation filling pattern. E/E prime ratio is between 8 and 15 consistent with indeterminate filling pressures. Right Ventricle Normal right ventricular cavity size and systolic function. Atria The left atrium is mildly dilated. Interatrial shunt cannot be excluded. The right atrium was not well visualized. Aortic Valve A bioprosthetic aortic valve is present. The prosthetic aortic valve appears to be functioning normally. The mean gradient is 10 mmHg. There is no aortic valve regurgitation. Mitral Valve There is mild anterior and posterior mitral leaflet thickening. There is mild mitral annular calcification. There is trace mitral valve regurgitation. There is no mitral valve stenosis. Pulmonic Valve The pulmonic valve was not well visualized. Tricuspid Valve The tricuspid valve was not well visualized. Normal right atrial pressure. There is no evidence of pulmonary hypertension. Great Vessels The pulmonary artery was not well visualized. There is mild dilatation of the ascending aorta measuring 3.80 cm. Venous The inferior vena cava is normal in size and collapses greater than 50% with inspiration. Pericardium/Pleural There is no evidence of pericardial effusion. Prior Study Comparison Changes noted compared to prior study dated: 02/06/2023. LV function is mildly reduced. A normally function bioprosthetic aortic valve is now present in place of ute severe aortic stenosis Measurements 2D Linear Measurements IVSd: 1.51 0.6-0.9/0.6-1.0 cm LVIDd: 4.97 3.9-5.3/4.2-5.9 cm LVIDd Index: 2.51 2.4-3.2/2.2-3.1 cm/m2 LVIDs: 3.11 2.0-3.6 cm LVPWd: 1.53 0.7-1.1 cm Ao Root: 3.10 2.1-3.5 cm LA Diam: 5.00 2.7-3.8/3.0-4.0 cm LAIDs Index: 2.53 1.5-2.3 cm/m2 LV Mass: 406.81 67-162/88-224 g LV Mass Index: 205.46 43-95/49-115 g/m2 LVOT Diam: 2.00 3.0+(-)1.3 cm 2D Systolic Function EF 4C: 51.60 >55% EF 2C: 59.20 >55% EF BiP: 51.70 >55% Mitral Valve MV Pk E: 0.52 MV PK A: 1.00 MV Decel Time: 110.00 E/A: 0.50 E'Lateral: 3.70 E'Medial: 4.46 E/E' Med: 11.70 E/E' Lat: 14.10 PHT: 32.00 MVA PHT: 6.88 Decel [place]: 4.75 Aortic Valve AoV Pk John: 2.18 AoV Mn John: 1.47 AoV VTI: 0.41 AoV Pk Grad: 19.00 Aov Mn Grad: 10.00 SALINAS Cont.VTI: 1.55 LVOT LVOT Pk John: 1.09 LVOT Mn John: 0.70 LVOT VTI: 0.20 LVOT Pk Grad: 5.00 LVOT Mn Grad: 3.00 LVOT Diam: 2.00 LVOT Area: 3.14 Diastolic Function MV Pk E: 0.52 MV Pk A: 1.00 E/A: 0.50 E'Medial: 4.46 E/E' Med: 11.70 E' Laterial: 3.70 E/E' Lat: 14.10 Right Ventricle TAPSE (mm): 22.00 TVS' John: 10.00 Tricuspid Valve TR Pk John: 1.28 TR Pk Grad: 7.00 RA Press: 3.00 RVSP: 10.00 Great Vessels Aorta Ao Root-2D: 3.10 2.0-3.7 cm Ao Asc: 3.80 2.1-3.4 cm Pulmonary Valve PV Pk John: 1.36 Peak PV Grad: 7.00 Updated in Other Vendor System with Status of Final Kevyn Chapa MD electronically signed on 05/16/2023 10:19:21 AM with status of Final
== END ==
LOC: HO.CARD 10:55
PROVIDERS: PCP Nurse Practitioner Family; Visit Provider Internal Medicine Cardiovascular Disease
DX: Z95.4 Presence of other heart-valve replacement (principal)
CPT/HCPCS: 93306

== ENCOUNTER → 2023-05-15 10:57 | Outpatient (BNV) | payer MEDICARE, BC, SELFPAY | PROVIDERS: PCP Nurse Practitioner Family; Visit Provider Internal Medicine Cardiovascular Disease | DX: I34.81 Nonrheumatic mitral (valve) annulus calcification (principal) | CPT/HCPCS: 93306 ==

== ENCOUNTER 2023-06-06 13:53 | Outpatient (AMB) | payer MEDICARE, BC, SELFPAY ==
[2023-06-06 13:54] VITALS: BP 120/78; PULSE 105; BMI 31.4
--- NOTE | 2023-06-06 13:54 | A.OFFVIS_ITS ---
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 He said he feels excellent after the aortic valve replacement. This was done in April with 26 mm bioprosthetic valve. Recent echocardiogram shows normal valve function with mean gradient of 10 mm Hg with normal LV systolic function. He notices much improvement in his exercise capacity with no shortness of breath. Denies any other cardiac symptoms. Denies any angina. Takes all his medications. [facility] Medical History Aortic stenosis CAD (coronary artery disease) Erectile dysfunction Ulcerative colitis Duodenal bulb ulcer Dyslipidemia HTN (hypertension) Surgical History S/P TAVR (transcatheter aortic valve replacement) H/O radical prostatectomy S/P quintuple vessel bypass History of eye surgery History of discectomy History of bunionectomy History of heart bypass surgery Family History Father No problems noted. Mother Smoker Emphysema, unspecified Maternal Grandfather No problems noted. Maternal Grandmother Stroke Diabetes mellitus Amputation of leg Paternal Grandfather Cancer Paternal Grandmother No problems noted. Other Substance use disorder Social History Housing: House Alcohol intake: current Patient Tobacco Use Status: Former Tobacco user e-Cigarette/Vaping Use: Never Used Second Hand Smoke Exposure: No Current occupational status: retired Cognitive needs: No Hearing needs: No Vision needs: No Review of Systems Const Denies chills, Denies fatigue, Denies fever(s), Denies frequent falls, Denies weakness, Denies weight gain and Denies weight loss ENT Denies dizziness Card Denies chest pain, Denies leg edema, Denies lightheadedness, Denies palpitations, Denies dyspnea, Denies dyspnea on exertion, Denies orthopnea and Denies other (loss of consciousness) Resp Denies cough, Denies dyspnea and Denies dyspnea on exertion GI Denies hematochezia and Denies change in stool character Musc Denies abnormal gait, Denies muscle weakness, Denies numbness, Denies radiating pain into limb and Denies tingling Neuro Denies abnormal gait, Denies dizziness, Denies frequent falls, Denies numbness, Denies tingling and Denies weakness Endo Denies fatigue and Denies palpitations Physical Exam Vital Signs: Last Vital Signs Pulse 105 H 06/06/23 13:54 BP 120/78 06/06/23 13:54 BMI result Body Mass Index 31.4 Const General: cooperative, comfortable, no acute distress, alert and awake Nutritional Appearance: obese Orientation/consciousness: patient oriented x3 Limitations: no limitations HEENT Head: Yes normal to inspection, Yes normocephalic and Yes atraumatic Eyes General: appearance normal, both eyes and all related structures Neck Neck: Yes trachea midline, Yes supple and Yes no JVD Carotids: other ( No carotid bruit) Chest Chest palpation & inspection: normal inspection of the chest and other ( well- healed sternotomy scar) Resp Effort & Inspection: normal respiratory effort Auscultation: clear to auscultation bilaterally Cardio Jugular venous distension: no JVD Palpation: normal PMI Rate: regular rate Rhythm: regular rhythm Heart sounds: S1 normal heart sound present, Murmur heart sound present systolic early, III/ and at the base and Other heart sounds present (Soft S2) GI Inspection: Yes obesity Auscultation: normal bowel sounds Skin General skin exam: no rashes or lesions noted Neuro General: patient oriented x3 and no focal motor deficits Extrem General: Yes no clubbing, cyanosis or edema and Yes other (Right groin surgical site shows scar tissue, no bruits healing well) Psych Appearance: grossly normal Office Procedures EKG Details: EKG shows sinus tachycardia with right bundle-branch block and left anterior fascicular block with suggestion of left ventricular hypertrophy [id number], Complete Assessment & Plan Assessment & Plan (1) S/P TAVR (transcatheter aortic valve replacement): Comment: 26 mm Gris 3, 22539 Code(s): Z95.2 - Presence of prosthetic heart valve Plan: Status post transcatheter aortic valve placement for symptomatic aortic stenosis with a bioprosthetic valve. The valve is working very well. Continue dual antiplatelet therapy for total of and maximal in 6 months. Lifelong aspirin therapy beyond that. Continue aggressive vascular risk factor modification. SBE prophylaxis as per ACC/aha guidelines. Follow-up echocardiogram in 1 year's time. Recommend phase 2 cardiac rehabilitation, however E wants to defer it as he said he is very busy in his personal life. (2) CAD (coronary artery disease): Code(s): I25.10 - Atherosclerotic heart disease of [place] coronary artery without angina pectoris Plan: CAD status post quadruple bypass remotely many years ago. Continue aggressive vascular risk factor modification. Continue lifelong aspirin therapy. Blood pressure is currently well optimized. Continue PCSK9 inhibitor therapy to target goal LDL less than 60 mg/dL. Encouraged to continue point physical activity as tolerated. Will follow up in the clinic in 1 year's time, sooner p.r.n.. Thank you for allowing me to partake in his care Orders: Orders CA echo transthoracic complete 50 Weeks Z95.2 - Presence of prosthetic heart valve Coding Level of Care Code Est Pt Level 4 (37121) Diagnoses S/P TAVR (transcatheter aortic valve replacement) Z95.2 CAD (coronary artery disease) I25.10 CPT Codes EKG - CPT: 92866-[id number], Complete ([id number])
== END 2023-06-06 14:20 | disposition home or self-care (01) ==
PROVIDERS: PCP Nurse Practitioner Family; Visit Provider Internal Medicine Cardiovascular Disease
DX: Z95.2 Presence of prosthetic heart valve (principal); I25.10 Atherosclerotic heart disease of native coronary artery without angina pectoris
CPT/HCPCS: 93010; 99214

== ENCOUNTER → 2023-06-06 13:53 | Outpatient (BNVA) | payer MEDICARE, BC, SELFPAY | PROVIDERS: PCP Nurse Practitioner Family; Visit Provider Internal Medicine Cardiovascular Disease | DX: I25.10 Atherosclerotic heart disease of native coronary artery without angina pectoris (principal); Z95.2 Presence of prosthetic heart valve; Z79.82 Long term (current) use of aspirin | CPT/HCPCS: 93005; 99212 ==

== ENCOUNTER 2023-06-12 09:51 | Outpatient (REF) | payer MEDICARE, BC, SELFPAY ==
--- NOTE | ~2023-06-12 | CT_ITS ---
EXAMINATION: CT CHEST WITH CONTRAST CLINICAL INFORMATION: Pulmonary nodule COMPARISON: Previous chest CT April 2021 TECHNIQUE: Multidetector volumetric CT imaging of the chest was obtained after the administration of 65 mL of Omnipaque 350 intravenous contrast without immediate adverse reactions. Axial MIP volume rendering provided. Sagittal and coronal reformatted images were obtained. This CT examination was performed using dose optimization techniques as appropriate, variously including the following: *Automated exposure control *Adjustment of mA and/or kV according to patient size (this includes techniques or standardized protocols for targeted exams where dose is matched to indication/reason for exam; i.e. extremities or head) *Use of iterative reconstruction technique DLP: 158 mGy-cm FINDINGS: LUNGS: There is evidence of paraseptal emphysema. Predominantly calcified 6 mm right middle lobe nodule axial image 110 series 5. Irregular shaped peripheral right lower lobe nodule. This is difficult to measure due to irregular shape. This measures 1.9 x 2 cm in longitudinal and transverse dimension coronal reconstructed image and 1.5 cm in AP dimension sagittal reconstructed image 94 . 2 mm calcified lingular nodule axial image 113 series 5. 3 mm left lower lobe nodule axial image 137 series 5. Small peripheral or subpleural calcifications or calcified nodules in the right lower lobe axial image 141 series 5. MEDIASTINUM: Post-CABG changes. New aortic valve stent graft. Normal heart size. No pericardial effusion. Small mediastinal lymph nodes. No enlarged lymph nodes. Normal caliber thoracic aorta. No pericardial effusion. PLEURA: There is no pleural effusion. No pleural mass or thickening. AXILLA: No lymphadenopathy. UPPER ABDOMEN: 2 cm left renal cyst. No imaging follow-up recommended. Atherosclerotic disease. OSSEOUS STRUCTURES: Degenerative changes of the spine. [place] median sternotomy CT/CT chest w IV con IMPRESSION: Emphysema. Irregularly-shaped peripheral right lower lobe nodule measuring 2 x 2 x 1.5 cm. Appearance is concerning for neoplasm. Tissue sampling or PET/CT scan recommended. Fleischner guidelines were followed. Findings will be communicated by the [facility]
[2023-06-12] MEDS: iohexoL 350 MG/ML 100 ML INFUS..BTL IV (10:41)
[2023-06-19 11:02] LABS: Creatinine POC 0.7 mg/dL (0.5-1.4); GFR POC > 60
== END 2023-06-12 09:52 | disposition home or self-care (01) ==
LOC: HO.CT 09:51
PROVIDERS: PCP Nurse Practitioner Family; Visit Provider Nurse Practitioner Family
DX: R91.1 Solitary pulmonary nodule (principal)
CPT/HCPCS: 71260; 82565; Q9967

== ENCOUNTER 2023-07-08 10:00 | Outpatient (REF) | payer MEDICARE, BC, SELFPAY ==
[2023-07-08 12:30] LABS: Alanine Aminotransferase 19 U/L (0-40); Alkaline Phosphatase 48 U/L (39-117); Anion Gap 11 (12-20); Aspartate Amino Transferase 32 U/L (5-37); Bilirubin Total 0.6 mg/dL (0.0-1.0); Blood Urea Nitrogen 11 mg/dL (9-16); Calcium 9.7 mg/dL (8.4-10.2); Carbon Dioxide 25 mmol/L (22-29); Chloride 109 mmol/L (96-108); Estimated Glomerular Filt Rate > 60; Glucose Random 105 mg/dL (60-115); Potassium 3.8 mmol/L (3.3-5.1); Sodium 141 mmol/L (135-145); Total Protein 7.2 g/dL (6.5-8.0)
[2023-07-08 12:56] LABS: Prostate Specific Antigen < 0.10 ng/mL (<0.05-4.0)
== END 2023-07-08 10:01 | disposition home or self-care (01) ==
LOC: HO.HMGCLR 10:00
PROVIDERS: Absent Provider Physician Assistant; PCP Nurse Practitioner Family; Visit Provider Nurse Practitioner Family
DX: R91.1 Solitary pulmonary nodule (principal); C61 Malignant neoplasm of prostate; E78.5 Hyperlipidemia, unspecified; I10 Essential (primary) hypertension; Z12.5 Encounter for screening for malignant neoplasm of prostate
CPT/HCPCS: 36415; 80053; 84153

== ENCOUNTER 2023-12-26 09:33 | Outpatient (AMB) | payer MEDICARE, BC, SELFPAY ==
--- NOTE | 2023-12-26 10:02 | A.OFFPC_ITS ---
Vital Signs 12/26/23 10:05 Height 5 ft 4 in Weight 170 lb BMI 29.2 BP 130/78 Blood Pressure Location Lt brachial Position Sitting Pulse 84 Pulse Source Pulse Oximeter Pulse Oximetry (%) 99 Oxygen Delivery Method Room Air Intake Visit Reasons: follow up HTN Allergies No Known Allergies [No Known Allergies*] Allergy (Verified 12/26/23 12:38) Medication List - Last Reconciled 12/26/23 by SANTIAGO Dolan amlodipine 5 mg PO DAILY aspirin 81 mg PO DAILY clopidogrel 75 mg PO DAILY evolocumab (Repatha SureClick) 140 mg subcut Q2W 90 days ezetimibe 10 mg PO DAILY 90 days mesalamine 800 mg (2 x 400 mg) PO BID multivitamin (Daily Multi-Vitamin tablet) 1 tab PO DAILY omeprazole 20 mg PO DAILY rosuvastatin 40 mg PO DAILY Tobacco use date assessed: 12/26/23 Fall risk assessment: No Falls in past year Last assessed Fall Risk: 12/26/23 HPI follow up HTN HPI Details HTN: Blood pressure is stable, managed with amlodipine 5mg. Dyslipidemia: On repatha 140mg, zetia 10mg, and rosuvastatin 40mg. Will order labs. Denies chest pain, shortness of breath, headache, dizziness, and blurred vision. Pt reports memory loss (more short term). His has noticed this too and reports pt is slow to think sometimes. 30/30 on mini mental. Will order head CT and labs. [facility] Medical History Aortic stenosis CAD (coronary artery disease) Erectile dysfunction Ulcerative colitis Duodenal bulb ulcer Dyslipidemia HTN (hypertension) Surgical History S/P TAVR (transcatheter aortic valve replacement) H/O radical prostatectomy S/P quintuple vessel bypass History of eye surgery History of discectomy History of bunionectomy History of heart bypass surgery Family History Father No problems noted. Mother Smoker Emphysema, unspecified Maternal Grandfather No problems noted. Maternal Grandmother Stroke Diabetes mellitus Amputation of leg Paternal Grandfather Cancer Paternal Grandmother No problems noted. Other Substance use disorder Social History Housing: House Alcohol intake: current Patient Tobacco Use Status: Former Tobacco user e-Cigarette/Vaping Use: Never Used Second Hand Smoke Exposure: No Current occupational status: retired Cognitive needs: No Hearing needs: No Vision needs: No Questionnaire PHQ-9 Over the last 2 weeks, how often have you been bothered by any of the following problems? 1. Little interest or pleasure in doing things: not at all 2. Feeling down, depressed, or hopeless: not at all 3. Trouble falling or staying asleep, or sleeping too much: not at all 4. Feeling tired or having little energy: not at all 5. Poor appetite or overeating: not at all 6. Feeling bad about yourself - or that you are a failure or have let yourself or your family down: not at all 7. Trouble concentrating on things, such as reading the newspaper or watching television: not at all 8. Moving or speaking so slowly that other people could have noticed. Or the opposite - being so fidgety or restless that you have been moving around a lot more than usual: not at all 9. Thoughts that you would be better off or of hurting yourself in some way: not at all Total score: 0 Depression Screening Interpretation: Negative Depression Screening Done: Yes 13672 - PHQ-9 Billing: Yes Source: Developed by Drs. Aston Keen, Stephanie Yuan, Tahir Chandra and colleagues, with an educational claritza from [employer]. Thrive Questionnaire Date Thrive assessed: 12/26/23 I am a: Patient What is your living situation today?: I have a steady place to live Within the past 12 months, did the food you bought not last and you didn't have the money to get more?: Never true Within the past 12 months, did you worry whether your food would run out before you got money to buy more?: Never true Do you have trouble paying for medicines?: No Do you have trouble getting transportation to medical appointments?: No Do you have trouble paying your heating and electricity bill?: No Do you have trouble taking care of your child, family member or friend?: No Do you have trouble with day-to-day activities such as bathing, preparing meals, shopping, managing finances, etc.?: No Are you currently unemployed and looking for a job?: No Are you interested in more education?: No Currently or been in a relationship where the following occur: I choose not to answer this question THRIVE Score: 0 NISA-7 AMB Questionnaire NISA-7 Date NISA - 7 assessed: 12/26/23 Feeling nervous, anxious, or on edge: 0 = Not at all Not being able to stop or control worryin = Not at all Worrying too much about different things: 0 = Not at all Trouble relaxin = Not at all Being so restless that it is hard to sit still: 0 = Not at all Becoming easily annoyed or irritable: 0 = Not at all Feeling afraid as if something awful might happen: 0 = Not at all Total NISA-7 score (0-4 normal; 5-9 mild; 10-14 moderate; 15-21 severe): 0 Source: Developed by Drs. Aston Keen, Stephanie Yuan, Tahir leach nd colleagues, with an educational claritza from [employer]. NISA-7 Assessment Billing NISA-7 Assessment Tool: NISA-7 Assessment 22271 Physical exam (Primary Care) Vital Signs: Last Vital Signs Pulse 84 12/26/23 10:05 BP 130/78 12/26/23 10:05 Pulse Ox 99 12/26/23 10:05 Oxygen Delivery Method Room Air 12/26/23 10:05 BMI result Body Mass Index 29.2 Tobacco/Smoking Status: Tobacco use Status Tobacco use date assessed 12/26/23 12/26/23 10:10 Patient Tobacco Use Status Former Tobacco user 12/26/23 10:10 e-Cigarette/Vaping Use Never Used 12/26/23 10:10 PHQ-9: PHQ-9 Score PHQ-9: Total score 0 12/26/23 10:44 Depression Screening Interpretation: Negative Thrive Assessment: Date of Thrive Assessment Date Thrive assessed 12/26/23 12/26/23 10:10 Currently or been in a relationship where the following occur: I choose not to answer this question Resp Effort & Inspection: normal respiratory effort Auscultation: clear to auscultation bilaterally Cardio Rate: regular rate Rhythm: regular rhythm Heart sounds: S1 normal heart sound present, S2 normal heart sound present and Murmur heart sound present systolic Psych Appearance: grossly normal Mental Status: mental status grossly normal Speech and movement: Normal speech and movement present Affect: normal affect Attitude: cooperative Thought process: Normal thought process present Thought content: Normal thought content present Insight: Good insight present (Psych) Judgement: Good judgement present (Psych) Assessment and Plan Assessment & Plan (1) HTN (hypertension): Code(s): I10 - Essential (primary) hypertension Plan: Stable, labs ordered (2) Dyslipidemia: Code(s): E78.5 - Hyperlipidemia, unspecified Plan: Labs ordered (3) Memory loss: Code(s): R41.3 - Other amnesia Plan: Head CT and labs ordered, mini mental was 100% neg () Plan The patient agreed to the use of a medical referral coordinator for this encounter. Scribed for BILL Bosch-NIGEL by Elizabeth Garrido medical referral coordinator, on 12/26/2023 at 10:55 EST. Orders: Orders TSH reflex Free T4 Today E78.5 - Hyperlipidemia, unspecified, I10 - Essential (primary) hypertension Methylmalonic Acid Today R41.3 - Other amnesia Homocysteine Today R41.3 - Other amnesia Complete Blood Count Auto Diff Today E78.5 - Hyperlipidemia, unspecified, I10 - Essential (primary) hypertension Comprehensive [place]. Panel Fast Today E78.5 - Hyperlipidemia, unspecified, I10 - Essential (primary) hypertension UA CC w/rflx Micro + Cult Today E78.5 - Hyperlipidemia, unspecified, I10 - Essential (primary) hypertension Lipid Panel Today E78.5 - Hyperlipidemia, unspecified, I10 - Essential (primary) hypertension Vitamin B12 and Folate Today R41.3 - Other amnesia Coding Level of Care Code Est Pt Level 3 (25929) Diagnoses HTN (hypertension) I10 Dyslipidemia E78.5 Memory loss R41.3 Additional Codes NISA-7 Assessment Billing - NISA-7 Assessment Tool: NISA-7 Assessment 52130 ([id number])
[2023-12-26 10:05] VITALS: BP 130/78; PULSE 84; O2SAT 99; BMI 29.2
== END 2023-12-26 13:03 | disposition home or self-care (01) ==
PROVIDERS: PCP Nurse Practitioner Family; Visit Provider Nurse Practitioner Family
DX: I10 Essential (primary) hypertension (principal); E78.5 Hyperlipidemia, unspecified; R41.3 Other amnesia
CPT/HCPCS: 99213

== ENCOUNTER 2024-01-22 06:26 | Day surgery (SDC) | payer MEDICARE, BC, SELFPAY ==
[2024-01-20 14:54] VITALS: BMI 29.0
--- NOTE | 2024-01-21 09:01 | HO.ANESPROP2 ---
Documented by User: Meche Fam NP 01/21/24 09:08 HPI - Anesthesia Eval Consult details Narrative: 74yo M for Upper Endoscopy and Colonoscopy Cardiac cleared s/p TAVR 04/2023 [facility] Active Problems Active Problems: All Active Problems Memory loss (Acute) Lung neoplasm (Acute) Pulmonary nodule (Acute) Encounter for subsequent annual wellness visit (AWV) in Medicare patient (Acute) Fatigue (Acute) Rash (Acute) Exertional angina (Acute) Dyslipidemia (Acute) Encounter for annual wellness visit (AWV) in Medicare patient (Acute) Skin lesion (Acute) Wheezing (Acute) Cough (Acute) S/P TAVR (transcatheter aortic valve replacement) (Acute) CAD (coronary artery disease) (Acute) Dyslipidemia (Acute) HTN (hypertension) (Acute) Past Medical History Medical History Aortic stenosis CAD (coronary artery disease) Erectile dysfunction Ulcerative colitis Duodenal bulb ulcer Dyslipidemia HTN (hypertension) Family History Family History Father No problems noted. Mother Smoker Emphysema, unspecified Maternal Grandfather No problems noted. Maternal Grandmother Stroke Diabetes mellitus Amputation of leg Paternal Grandfather Cancer Paternal Grandmother No problems noted. Other Substance use disorder Surgical History Surgical History S/P TAVR (transcatheter aortic valve replacement) H/O radical prostatectomy History of eye surgery History of discectomy History of bunionectomy History of heart bypass surgery Social History Social History Housing: House Alcohol intake: current Patient Tobacco Use Status: Former Tobacco user Quit Date: 45 yr ago 1978 e-Cigarette/Vaping Use: Never Used Second Hand Smoke Exposure: No Use of substances other than those prescribed or required for medical reasons: No Are you DNR?: No Advance Directives: No Advance Directives Information Provided: Yes Current occupational status: retired Cognitive needs: No Hearing needs: No Vision needs: No Meds Allergies Allergy/AdvReac Type Severity Reaction Status Date / Time No Known Allergies Allergy Verified 12/26/23 12:38 [No Known Allergies*] Home Medications ?Medication ?Instructions ?Recorded ?Confirmed ?Last Taken ?Type omeprazole 20 mg capsule,delayed 20 mg PO DAILY 07/06/20 01/20/24 Unknown History release multivitamin (Daily Multi-Vitamin 1 tab PO DAILY 08/08/22 01/20/24 Unknown History tablet) aspirin 81 mg tablet,delayed 81 mg PO DAILY 06/06/23 01/20/24 Unknown History release Exam Height,Weight and Vital Signs: Height 5 ft 5 in Weight 78.925 kg Narrative Narrative: EKG 05/2023 sinus tachycardia with right bundle-branch block and left anterior fascicular block with suggestion of left ventricular hypertrophy ECHO 2022 Conclusions: - 1. Low normal LV ejection fraction of 50-55% with moderate LVH and impaired relaxation filling pattern 2. Mildly dilated left atrium 3. Normally function bioprosthetic aortic valve with mean gradient of 10 mmHg 4. Normal RV systolic pressure 5. No gross pericardial effusion Assessment and Plan Assessment Anesthesia Assessment: Chart Reviewed Documented by User: João Green MD 01/22/24 07:12 [facility] Past Medical History Medical History Aortic stenosis CAD (coronary artery disease) Erectile dysfunction Ulcerative colitis Duodenal bulb ulcer Dyslipidemia HTN (hypertension) Family History Family History Father No problems noted. Mother Smoker Emphysema, unspecified Maternal Grandfather No problems noted. Maternal Grandmother Stroke Diabetes mellitus Amputation of leg Paternal Grandfather Cancer Paternal Grandmother No problems noted. Other Substance use disorder Family history of problems with anesthesia: No Surgical History Surgical History S/P TAVR (transcatheter aortic valve replacement) H/O radical prostatectomy History of eye surgery History of discectomy History of bunionectomy History of heart bypass surgery History of Problems with Anesthesia: No Social History Social History Housing: House Alcohol intake: current Patient Tobacco Use Status: Former Tobacco user Quit Date: 45 yr ago 1978 e-Cigarette/Vaping Use: Never Used Second Hand Smoke Exposure: No Use of substances other than those prescribed or required for medical reasons: No Are you DNR?: No Advance Directives: No Advance Directives Information Provided: Yes Current occupational status: retired Cognitive needs: No Hearing needs: No Vision needs: No Meds Allergies Allergy/AdvReac Type Severity Reaction Status Date / Time No Known Allergies Allergy Verified 12/26/23 12:38 [No Known Allergies*] Home Medications ?Medication ?Instructions ?Recorded ?Confirmed ?Last Taken ?Type omeprazole 20 mg capsule,delayed 20 mg PO DAILY 07/06/20 01/20/24 Unknown History release multivitamin (Daily Multi-Vitamin 1 tab PO DAILY 08/08/22 01/20/24 Unknown History tablet) aspirin 81 mg tablet,delayed 81 mg PO DAILY 06/06/23 01/20/24 Unknown History release Exam Airway Mallampati Class: II TM Dist: >3cm Neck ROM: Full Loose/Missing/Broken Teeth: No Heart: rrr Lungs: cta Assessment and Plan Assessment Anesthesia Assessment: Anesthesia Plan Discussed Final Anesthetic Review Family History of Problems with Anesthesia: No History of Problems with Anesthesia: No NPO: Yes ASA Class: II Final Preanesthetic Review: No Changes in Pt Med Stat, Meds/Allgs Chart Reviewed, Consent Obtained/Reviewed and Anes Risks/Benef Reviewed Patient Risk: Intermediate Procedure Risk: Intermediate Anesthetic Plan Anesthetic Plan: MAC: Disposition: Standard PACU
[2024-01-22 07:00] VITALS: BMI 27.5
[2024-01-22 07:05] VITALS: PULSE 71; RESP 18; TEMP 36.3; O2SAT 98
[2024-01-22] MEDS: Lactated Ringers 1,000 ML 100 ML IVCONT (07:22)
[2024-01-22 08:31] VITALS: BP 120/42; PULSE 72; RESP 18; TEMP 36.1; O2SAT 95
--- NOTE | 2024-01-22 08:37 | P.BOP_ITS ---
Brief Operative Note Date of Service: 01/22/24 Pre-op diagnosis: GERD, Ulcerative colitis Post-op diagnosis: other (Hiatal hernia, Diverticulosis, R/O Dysplasia) Procedure: EGD, Colonoscopy to the cecum and TI with biopsies Surgeon: Aston Denis MD Anesthesia: MAC Was an Banding Machine Operator used for this Procedure?: No Estimated blood loss (mL): 2.0 Pathology: other (A. Ascending colon B. Transverse colon C. Descending colon D. Sigmoid E. Rectum) Condition: stable Disposition: PACU
[2024-01-22 08:46] VITALS: BP 112/51; PULSE 74; RESP 18; TEMP 36.2; O2SAT 97
--- NOTE | 2024-01-22 09:00 | OP_ITS ---
DATE OF SERVICE: 01/22/2024 SURGEON: Aston Denis MD INDICATIONS: The patient presents for evaluation of gastroesophageal reflux, ulcerative colitis, history of colon polyps, and colorectal cancer screening. Full consent has been obtained from him for this, including risks of bleeding and perforation. PREOPERATIVE DIAGNOSIS: POSTOPERATIVE DIAGNOSIS: PROCEDURE PERFORMED: ESTIMATED BLOOD LOSS: COMPLICATIONS: ANESTHESIA: Monitored anesthesia care. ASSISTANTS: SPECIMENS: PREOPERATIVE DIAGNOSES: Gastroesophageal reflux, ulcerative colitis, personal history of colon polyps, colorectal cancer screening. POSTOPERATIVE DIAGNOSES: Gastroesophageal reflux, ulcerative colitis, personal history of colon polyps, colorectal cancer screening, hiatal hernia, diverticulosis, and internal hemorrhoids. PROCEDURES PERFORMED: Esophagogastroduodenoscopy, and colonoscopy to the cecum and terminal ileum with biopsies. DESCRIPTION OF PROCEDURE: The patient was placed in the left lateral decubitus position. The Olympus video gastroscope was passed in the posterior oropharynx and upper esophagus under direct vision. The scope was passed slowly into the distal esophagus. The gastroesophageal junction appeared normal at 35 cm. There was no sign of any esophagitis nor Raymond esophagus. The scope entered the stomach. There was a small hiatal hernia. The scope was advanced to pylorus and the duodenum was cannulated to the descending portion. The duodenum including the bulb appeared normal without mass or ulceration. The scope was withdrawn back in the stomach. The gastric antrum and body appeared normal other than some very minimal changes of gastritis with erythema. There was no erosions or ulceration. There was good peristalsis. The scope was retroflexed visualizing the proximal stomach carefully, which appeared normal, without any sign of mass or ulceration. The scope was straightened and withdrawn back to the esophagus. The esophageal mucosa appeared normal. The scope was withdrawn from the patient. He was turned around for the colonoscopy. The digital rectal exam revealed no abnormalities. The Olympus video pediatric colonoscope was then entered into the rectum and advanced easily to the cecum. Once in the cecum, I did identify normal-appearing cecal pouch with appendiceal orifice and a normal-appearing ileocecal valve. The terminal ileum was cannulated and appeared normal. The scope was withdrawn back in the colon. The entire cecum and ileocecal valve appeared normal. The scope was slowly withdrawn, assessing all mucosal surfaces carefully. Preparation was excellent. I did not visualize any sign of active colitis, polyps, nor angiodysplasia. Random biopsies were obtained in the ascending colon, transverse colon, descending colon, sigmoid colon, and rectum. There was a mild amount of sigmoid diverticulosis. In the rectum, scope was retroflexed visualizing internal hemorrhoids, but no other pathology. The rectal mucosa appeared normal. The scope was straightened and withdrawn from the patient. He tolerated both procedures well and was returned to the recovery area in stable condition. IMPRESSION: 1. Small hiatal hernia. 2. Diverticulosis. 3. Internal hemorrhoids. 4. History of ulcerative colitis, rule out dysplasia. PLAN: The results of the biopsy will be checked. He has been advised to continue his omeprazole for his reflux and mesalamine for his ulcerative colitis. He was advised to resume his Plavix in 48 hours and resume his aspirin in 24 hours. He will, otherwise, see me on a p.r.n. basis. I would recommend a repeat colonoscopy in 5 years. This has been discussed with his . MD SHIMON Mathew/MERRITT / [phone]
== END 2024-01-22 09:15 | disposition home or self-care (01) ==
PROVIDERS: PCP Nurse Practitioner Family; Visit Provider Internal Medicine
PROC: (CPT 45380; principal; 2024-01-22 07:30)
DX: K57.30 Diverticulosis of large intestine without perforation or abscess without bleeding (principal); K64.8 Other hemorrhoids; Z87.19 Personal history of other diseases of the digestive system; Z86.010 Personal history of colon polyps; K21.9 Gastro-esophageal reflux disease without esophagitis; K44.9 Diaphragmatic hernia without obstruction or gangrene; I25.2 Old myocardial infarction; Z79.82 Long term (current) use of aspirin; Z79.899 Other long term (current) drug therapy; Z95.1 Presence of aortocoronary bypass graft; Z95.2 Presence of prosthetic heart valve
CPT/HCPCS: 45380; 43235; 88305; J2704

== ENCOUNTER 2024-02-13 11:25 | Outpatient (AMB) | payer MEDICARE, BC, SELFPAY ==
[2024-02-13 09:57] VITALS: BP 130/72; PULSE 76; O2SAT 97; BMI 28.3
--- NOTE | 2024-02-13 09:57 | MHC.PC.OV ---
Vital Signs 02/13/24 09:57 Height 5 ft 5 in Weight 170 lb BMI 28.3 BP 130/72 Blood Pressure Location Rt brachial Position Sitting Pulse 76 Pulse Source Pulse Oximeter Pulse Oximetry (%) 97 Oxygen Delivery Method Room Air Intake Visit Reasons: pre op Intake Note: pt is here today for pre op, no labs or EKG needed Allergies No Known Allergies [No Known Allergies*] Allergy (Verified 02/13/24 11:42) Medication List - Last Reconciled 02/13/24 by BILL As[place] amlodipine 5 mg PO DAILY aspirin 81 mg PO DAILY clopidogrel 75 mg PO DAILY evolocumab (Repatha SureClick) 140 mg subcut Q2W 90 days ezetimibe 10 mg PO DAILY 90 days mesalamine 800 mg (2 x 400 mg) PO BID multivitamin (Daily Multi-Vitamin tablet) 1 tab PO DAILY omeprazole 20 mg PO DAILY rosuvastatin 40 mg PO DAILY Tobacco use date assessed: 02/13/24 Fall risk assessment: No Falls in past year Last assessed Fall Risk: 02/13/24 Dental Screening Dental Screen Date: 02/13/24 HPI HPI Comments History of Present Illness Details Patient is a 74-year-old male here for preop visit for cataract surgery in 1 week. Patient has no complaints at the time of the appointment. [facility] Medical History Aortic stenosis CAD (coronary artery disease) Erectile dysfunction Ulcerative colitis Duodenal bulb ulcer Dyslipidemia HTN (hypertension) Surgical History S/P TAVR (transcatheter aortic valve replacement) H/O radical prostatectomy History of eye surgery History of discectomy History of bunionectomy History of heart bypass surgery Family History Father No problems noted. Mother Smoker Emphysema, unspecified Maternal Grandfather No problems noted. Maternal Grandmother Stroke Diabetes mellitus Amputation of leg Paternal Grandfather Cancer Paternal Grandmother No problems noted. Other Substance use disorder Social History Housing: House Alcohol intake: current Patient Tobacco Use Status: Former Tobacco user e-Cigarette/Vaping Use: Never Used Second Hand Smoke Exposure: No Current occupational status: retired Cognitive needs: No Hearing needs: No Vision needs: No Questionnaire Thrive Questionnaire Date Thrive assessed: 12/26/23 NISA-7 AMB Questionnaire NISA-7 Date NISA - 7 assessed: 12/26/23 Source: Developed by Drs. Aston Keen, Stephanie Yuan, Tahir Chandra and colleagues, with an educational claritza from [employer]. Review of Systems Const All systems reviewed & are unremarkable except as noted in HPI and below Denies chills, Denies fever(s) and Denies headache(s) ENT Denies dizziness and Denies headache(s) Card Denies chest pain and Denies dyspnea Resp Denies cough, Denies dyspnea and Denies wheezing GI Denies diarrhea, Denies nausea and Denies vomiting Neuro Denies dizziness and Denies headache(s) Aller/Immun Denies wheezing Physical exam (Primary Care) Vital Signs: Last Vital Signs Pulse 76 02/13/24 09:57 BP 130/72 02/13/24 09:57 Pulse Ox 97 02/13/24 09:57 Oxygen Delivery Method Room Air 02/13/24 09:57 Care Plan Goal for BP management: Patient blood pressure controlled BMI result Body Mass Index 28.3 Tobacco/Smoking Status: Tobacco use Status Tobacco use date assessed 02/13/24 02/13/24 09:57 Patient Tobacco Use Status Former Tobacco user 02/13/24 09:57 e-Cigarette/Vaping Use Never Used 02/13/24 09:57 Thrive Assessment: Date of Thrive Assessment Date Thrive assessed 12/26/23 02/13/24 09:57 Const Other: Appearance: Alert.? Oriented X3.? No acute distress.? Head: Normocephalic. Eyes: Pupils equal, round and reactive to light.? ENT: Pharynx normal.? Neck: Normal inspection.? Neck supple.? CVS: Normal heart rate and rhythm.? Pulses normal.?+ systolic murmur. Respiratory: No respiratory distress.? Breath sounds normal. Neuro: Oriented X 3.? No motor deficit.? No sensory deficit. CN 2-12 intact Assessment and Plan Assessment & Plan (1) Pre-op evaluation: Comment: Patient is low cardiac risk for procedure. Code(s): Z01.818 - Encounter for other preprocedural examination (2) Dyslipidemia: Comment: Controlled. Previous blood draw for total cholesterol is 94, LDL was 23. Code(s): E78.5 - Hyperlipidemia, unspecified (3) Lung neoplasm: Comment: Patient has right lower lung resection. No complaints at time of appointment being followed by none thoracic surgery at [facility]. Code(s): D49.1 - Neoplasm of unspecified behavior of respiratory system (4) CAD (coronary artery disease): Comment: Patient is establish care with seasonal clerk. Currently utilizing Plavix and aspirin daily. Also has dyslipidemia controlled. Patient blood pressure control. Code(s): I25.10 - Atherosclerotic heart disease of [place] coronary artery without angina pectoris Qualifiers: Coronary Disease-Associated Artery/Lesion type: unspecified vessel or lesion type [place] vs. transplanted heart: [place] heart Associated angina: unspecified whether angina present Qualified Code(s): I25.10 - Atherosclerotic heart disease of [place] coronary artery without angina pectoris (5) HTN (hypertension): Comment: Controlled. Utilizing amlodipine Code(s): I10 - Essential (primary) hypertension Qualifiers: Hypertension type: unspecified Qualified Code(s): I10 - Essential (primary) hypertension Coding Level of Care Code Est Pt Level 3 (73741) Diagnoses Pre-op evaluation Z01.818 Dyslipidemia E78.5 Lung neoplasm D49.1 Coronary artery disease involving [place] heart, unspecified vessel or lesion type, unspecified whether angina present I25.10 Coronary Disease-Associated Artery/Lesion type: unspecified vessel or lesion type [place] vs. transplanted heart: [place] heart Associated angina: unspecified whether angina present Hypertension, unspecified type I10 Hypertension type: unspecified Time Spent (min) 25
== END 2024-02-13 12:36 | disposition home or self-care (01) ==
PROVIDERS: PCP Nurse Practitioner Family; Visit Provider Nurse Practitioner Primary Care
DX: Z01.818 Encounter for other preprocedural examination (principal); E78.5 Hyperlipidemia, unspecified; D49.1 Neoplasm of unspecified behavior of respiratory system; I25.10 Atherosclerotic heart disease of native coronary artery without angina pectoris; I10 Essential (primary) hypertension
CPT/HCPCS: 99213

== ENCOUNTER 2024-04-16 07:53 | Outpatient (REF) | payer MEDICARE, BC, SELFPAY ==
[2024-04-16 11:03] LABS: MANUAL DIFF FLAG NO
[2024-04-16 11:14] LABS: Basophils Percent Auto 0.6 % (0-2); Eosinophils Absolute Auto 0.2 X10*3/uL (0.0-0.4); Eosinophils Percent Auto 3.4 % (0-4); Hematocrit 47.9 % (42.0-52.0); Hemoglobin 15.8 g/dl (14.0-18.0); Imm Gran Abs Auto 0.03 X10*3/uL (0.00-0.03); Imm Gran Pct Auto 0.5 % (0.0-0.4); Lymphocytes Absolute Auto 1.3 X10*3/uL (1.2-4.9); Lymphocytes Percent Auto 19.5 % (20-40); Mean Corpuscular Hemoglobin 31.5 pg (27.0-33.0); Mean Corpuscular Volume 95.4 fL (80.0-98.0); Mean Platelet Volume 9.6 fL (9.4-12.4); Monocytes Absolute Auto 0.7 X10*3/uL (0.1-1.2); Monocytes Percent Auto 10.4 % (2-11); Neutrophils Absolute Auto 4.3 x10*3/uL (2.0-8.3); Neutrophils Percent Auto 65.6 % (45-73); Platelet Count 235 X10*3/uL (160-400); Red Blood Count 5.02 X10*6/uL (4.60-5.80); Red Cell Distribution Width 13.9 % (11.0-16.0); White Blood Count 6.6 X10*3/uL (4.8-10.8)
[2024-04-16 11:37] LABS: Alanine Aminotransferase 20 U/L (0-40); Alkaline Phosphatase 45 U/L (39-117); Anion Gap 9 (12-20); Aspartate Amino Transferase 32 U/L (5-37); Bilirubin Total 0.6 mg/dL (0.0-1.0); Blood Urea Nitrogen 13 mg/dL (9-16); Calcium 9.5 mg/dL (8.4-10.2); Carbon Dioxide 29 mmol/L (22-29); Chloride 109 mmol/L (96-108); Cholesterol 114 mg/dL (<200); Estimated Glomerular Filt Rate > 60; Glucose Fasting 88 mg/dL (60-99); HDL Cholesterol 66 mg/dL (>40); LDL Cholesterol Calculated 31 mg/dL (<100); Potassium 3.8 mmol/L (3.3-5.1); Sodium 143 mmol/L (135-145); Total Protein 7.1 g/dL (6.5-8.0); Triglycerides 87 mg/dL (<150)
[2024-04-16 11:41] LABS: Appearance Urine Clear; Color Urine Yellow; Glucose Urine UA Negative (Negative); Leukocyte Esterase Urine Negative (Negative); Nitrite Urine Negative (Negative); PH 6.5 (5.0-9.0); Urine Blood Negative (Negative); Urine Ketones Negative (Negative); Urine Protein Negative (Neg-Trace)
[2024-04-16 11:54] LABS: TSH reflex Free T4 1.93 uIU/mL (0.32-4.0)
[2024-04-16 12:03] LABS: Folate 14.3 ng/mL (> or = 4.0); Vitamin B12 507 pg/mL (200-900)
[2024-04-19 04:04] LABS: Methylmalonic Acid 122 nmol/L (69-390)
== END 2024-04-16 07:54 | disposition home or self-care (01) ==
LOC: HO.WFDLDS 07:53
PROVIDERS: Visit Provider Nurse Practitioner Family
DX: I10 Essential (primary) hypertension (principal); E78.5 Hyperlipidemia, unspecified; R41.3 Other amnesia
CPT/HCPCS: 36415; 80053; 80061; 81003; 82607; 82746; 83090; 83921; 84443; 85025

== ENCOUNTER → 2024-05-13 09:53 | Outpatient (REF) | payer MEDICARE, BC, SELFPAY ==
--- NOTE | 2024-05-13 09:55 | CA_ITS ---
Transthoracic Echocardiogram Patient (Last, First, Middle): Jose Jones A Gender: Male Date of : 1950 Age: 74 Procedure Date: 05/13/2024 Procedure Type: Transthoracic Echocardiogram Location: OP Height: 165.1 cm Weight: 79.38 kg BSA: 1.87 m2 Heart Rate: bpm BP: 150 / 62 mmHg Baby Stroller Rental Clerk: TONIO Referring MD: Kevyn Chapa MD Symptoms: Z95.2 - Presence of prosthetic heart valve Study Quality: Adequate w contrast Conclusions: - The left ventricular systolic function is mildly decreased. The calculated ejection fraction is 52% by biplane method. - The basal inferior segment is akinetic. - A bioprosthetic aortic valve is present. The prosthetic aortic valve appears to be functioning normally. Findings Procedure Information Contrast agent, definity, is being given per protocol without apparent complications. Left Ventricle Normal left ventricular cavity size. There is mildly increased left ventricular wall thickness. The left ventricular systolic function is mildly decreased. The calculated ejection fraction is 52% by biplane method. Diastolic function is normal for age. Wall Motion Rest Echo Findings The basal inferior segment is akinetic. Right Ventricle Normal right ventricular cavity size. There is mildly decreased right ventricular systolic function. Atria The left atrium is mildly dilated. The right atrium is normal in size. Aortic Valve A bioprosthetic aortic valve is present. The prosthetic aortic valve appears to be functioning normally. There is no aortic valve regurgitation. Mitral Valve The mitral valve appears normal. There is trace mitral valve regurgitation. There is no mitral valve stenosis. Pulmonic Valve The pulmonic valve is likely normal. Tricuspid Valve There is trace tricuspid valve regurgitation. There is no evidence of pulmonary hypertension. Great Vessels The asc aorta is normal in size. Venous The inferior vena cava was not well visualized. Pericardium/Pleural There is no evidence of pericardial effusion. Prior Study Comparison No significant change compared to prior study dated: 05/15/2023. Inferior wall finding likely present in prior study, but not well seen then. Measurements 2D Linear Measurements IVSd: 1.17 0.6-0.9/0.6-1.0 cm LVIDd: 5.71 3.9-5.3/4.2-5.9 cm LVIDd Index: 3.05 2.4-3.2/2.2-3.1 cm/m2 LVIDs: 3.79 2.0-3.6 cm LVPWd: 1.22 0.7-1.1 cm LA Diam: 3.90 2.7-3.8/3.0-4.0 cm LAIDs Index: 2.09 1.5-2.3 cm/m2 LV Mass: 359.08 67-162/88-224 g LV Mass Index: 192.02 43-95/49-115 g/m2 LVOT Diam: 2.00 3.0+(-)1.3 cm 2D Systolic Function EF 4C: 46.40 >55% EF 2C: 54.60 >55% EF BiP: 51.60 >55% Mitral Valve MV Pk E: 0.69 MV PK A: 1.17 MV Decel Time: 210.00 E/A: 0.60 E'Lateral: 7.40 E'Medial: 5.77 E/E' Med: 12.00 E/E' Lat: 9.40 PHT: 62.00 MVA PHT: 3.55 Decel Chaves: 3.30 Aortic Valve AoV Pk John: 2.35 AoV Mn John: 1.50 AoV VTI: 0.47 AoV Pk Grad: 22.00 Aov Mn Grad: 11.00 SALINAS Cont.VTI: 1.22 LVOT LVOT Pk John: 0.91 LVOT Mn John: 0.60 LVOT VTI: 0.18 LVOT Pk Grad: 3.00 LVOT Mn Grad: 2.00 LVOT Diam: 2.00 LVOT Area: 3.14 Diastolic Function MV Pk E: 0.69 MV Pk A: 1.17 E/A: 0.60 E'Medial: 5.77 E/E' Med: 12.00 E' Laterial: 7.40 E/E' Lat: 9.40 Right Ventricle TAPSE (mm): 14.70 TVS' John: 12.20 Great Vessels Aorta Ao Asc: 3.10 2.1-3.4 cm Updated in Other Vendor System with Status of Final Zeb Zepeda MD electronically signed on 05/15/2024 9:20:22 AM with status of Final
== END ==
LOC: HO.CARD 09:53
PROVIDERS: Absent Provider Internal Medicine Cardiovascular Disease; PCP Nurse Practitioner Family; Visit Provider Internal Medicine Cardiovascular Disease
DX: Z95.2 Presence of prosthetic heart valve (principal)
CPT/HCPCS: 93306; Q9957

== ENCOUNTER → 2024-05-13 09:55 | Outpatient (BNV) | payer MEDICARE, BC, SELFPAY | PROVIDERS: Absent Provider Internal Medicine Cardiovascular Disease; PCP Nurse Practitioner Family; Visit Provider Internal Medicine | DX: I51.89 Other ill-defined heart diseases (principal); Z95.3 Presence of xenogenic heart valve | CPT/HCPCS: 93306 ==

== ENCOUNTER 2024-06-04 13:42 | Outpatient (AMB) | payer MEDICARE, BC, SELFPAY ==
--- NOTE | 2024-06-04 13:45 | A.OFFVIS_ITS ---
Vital Signs 06/04/24 13:46 Height 5 ft 5 in Weight 176 lb 5.917 oz BMI 29.3 BP 122/80 Blood Pressure Location Lt brachial Position Sitting Pulse 83 Intake Visit Reasons: 1 year follow up Intake Note: 1 year follow-up with ekg feeling good Veterinary Assistant Required: No Allergies No Known Allergies [No Known Allergies*] Allergy (Verified 02/13/24 11:42) Medication List - Last Reconciled 06/04/24 by Kevyn Chapa MD amlodipine 5 mg PO DAILY aspirin 81 mg PO DAILY clopidogrel 75 mg PO DAILY evolocumab (Repatha SureClick) 140 mg subcut Q2W 90 days ezetimibe 10 mg PO DAILY 90 days mesalamine 800 mg (2 x 400 mg) PO BID multivitamin (Daily Multi-Vitamin tablet) 1 tab PO DAILY omeprazole 20 mg PO DAILY rosuvastatin 40 mg PO DAILY HPI Comments Details: Jose comes for follow-up. He denies any cardiac symptoms. He says remains very active. Denies any symptoms of exertional shortness of breath chest pain. No symptoms of fatigue. No lightheadedness, syncope. No prolonged palpitation irregular heartbeat. Surprisingly he is still on dual antiplatelet therapy for unclear reasons. He said he has easy bruising and does bleed easily. Denies any heart failure symptoms. Last LDL well optimized at 31 mg/dL. Blood pressure is generally well controlled. Recent echocardiogram shows preserved LV ejection fraction with normally function bioprosthetic aortic valve. [facility] Medical History Aortic stenosis CAD (coronary artery disease) Erectile dysfunction Ulcerative colitis Duodenal bulb ulcer Dyslipidemia HTN (hypertension) Surgical History S/P TAVR (transcatheter aortic valve replacement) H/O radical prostatectomy History of eye surgery History of discectomy History of bunionectomy History of heart bypass surgery Family History Father No problems noted. Mother Smoker Emphysema, unspecified Maternal Grandfather No problems noted. Maternal Grandmother Stroke Diabetes mellitus Amputation of leg Paternal Grandfather Cancer Paternal Grandmother No problems noted. Other Substance use disorder Social History Housing: House Alcohol intake: current Patient Tobacco Use Status: Former Tobacco user e-Cigarette/Vaping Use: Never Used Second Hand Smoke Exposure: No Current occupational status: retired Cognitive needs: No Hearing needs: No Vision needs: No Review of Systems Const Denies chills, Denies fatigue, Denies fever(s), Denies frequent falls, Denies weakness, Denies weight gain and Denies weight loss ENT Denies dizziness Card Denies chest pain, Denies leg edema, Denies lightheadedness, Denies palpitations, Denies dyspnea, Denies dyspnea on exertion, Denies orthopnea and Denies other (loss of consciousness) Resp Denies cough, Denies dyspnea and Denies dyspnea on exertion GI Denies hematochezia and Denies change in stool character Musc Denies abnormal gait, Denies muscle weakness, Denies numbness, Denies radiating pain into limb and Denies tingling Neuro Denies abnormal gait, Denies dizziness, Denies frequent falls, Denies numbness, Denies tingling and Denies weakness Endo Denies fatigue and Denies palpitations Physical Exam Vital Signs: Last Vital Signs Pulse 83 06/04/24 13:46 BP 122/80 06/04/24 13:46 BMI result Body Mass Index 29.3 Const General: cooperative, comfortable, no acute distress, alert and awake Nutritional Appearance: obese Orientation/consciousness: patient oriented x3 Limitations: no limitations HEENT Head: Yes normal to inspection, Yes normocephalic and Yes atraumatic Eyes General: appearance normal, both eyes and all related structures Neck Neck: Yes trachea midline, Yes supple and Yes no JVD Carotids: other ( No carotid bruit) Chest Chest palpation & inspection: normal inspection of the chest and other ( well- healed sternotomy scar) Resp Effort & Inspection: normal respiratory effort Auscultation: clear to auscultation bilaterally Cardio Jugular venous distension: no JVD Palpation: normal PMI Rate: regular rate Rhythm: regular rhythm Heart sounds: S1 normal heart sound present, Murmur heart sound present systolic early, III/ and at the base and Other heart sounds present (Soft S2) GI Inspection: Yes obesity Auscultation: normal bowel sounds Skin General skin exam: no rashes or lesions noted Neuro General: patient oriented x3 and no focal motor deficits Extrem General: Yes no clubbing, cyanosis or edema and Yes other (Right groin surgical site shows scar tissue, no bruits healing well) Psych Appearance: grossly normal Office Procedures EKG Details: EKG shows normal sinus rhythm with right bundle-branch block and left anterior fascicular block with LVH 14048-Gggxofcgovivluizk, Complete Assessment & Plan Assessment & Plan (1) CAD (coronary artery disease): Comment: Patient is establish care with health information assistant. Currently utilizing Plavix and aspirin daily. Also has dyslipidemia controlled. Patient blood pressure control. Code(s): I25.10 - Atherosclerotic heart disease of [place] coronary artery without angina pectoris Category: Medical Qualifiers: Coronary Disease-Associated Artery/Lesion type: unspecified vessel or lesion type [place] vs. transplanted heart: [place] heart Associated angina: unspecified whether angina present Qualified Code(s): I25.10 - Atherosclerotic heart disease of [place] coronary artery without angina pectoris Plan: CAD status post coronary artery bypass grafting remotely with cardiac catheterization showing no significant graft stenosis. Doing well continue aggressive medical therapy. Continue aspirin therapy for life. Does not really require dual antiplatelet therapy from CAD perspective or valve perspective. Discontinue Plavix. Continue aggressive risk factor modification, LDL is well optimized on rosuvastatin and Repatha therapy. Continue the same. He is francoise erating well. Continue aggressive blood pressure control which is currently well optimized. (2) S/P TAVR (transcatheter aortic valve replacement): Comment: 26 mm Gris 3, 04/2023 Code(s): Z95.2 - Presence of prosthetic heart valve Category: Surgical Plan: Status post transcatheter aortic valve replacement with significantly improved symptoms. Valve is working well both clinically and by echocardiogram. Continue aggressive vascular risk factor modification as above. Will need low- dose aspirin therapy is required for life. SBE prophylaxis as per ACC/[place] guidelines. Follow up in the clinic in 1 year's time sooner p.r.n. after an echocardiogram. Advised to call me with any new symptoms. Thank you for allowing me to partake in his care Orders: Orders CA echo transthoracic complete 1 Year Z95.2 - Presence of prosthetic heart valve Medications: Discontinued clopidogrel Discontinued Reason: Doctor's Order 75 mg PO DAILY 90 tabs 3RF Coding Level of Care Code Est Pt Level 4 (91614) Diagnoses Coronary artery disease involving [place] heart, unspecified vessel or lesion type, unspecified whether angina present I25.10 Coronary Disease-Associated Artery/Lesion type: unspecified vessel or lesion type [place] vs. transplanted heart: [place] heart Associated angina: unspecified whether angina present S/P TAVR (transcatheter aortic valve replacement) Z95.2 CPT Codes EKG - CPT: 13950-Nlycapkznzvlpawae, Complete ([id number])
[2024-06-04 13:46] VITALS: BP 122/80; PULSE 83; BMI 29.3
== END 2024-06-04 14:55 | disposition home or self-care (01) ==
PROVIDERS: PCP Nurse Practitioner Family; Visit Provider Internal Medicine Cardiovascular Disease
DX: I25.10 Atherosclerotic heart disease of native coronary artery without angina pectoris (principal); Z95.2 Presence of prosthetic heart valve
CPT/HCPCS: 93010; 99214

== ENCOUNTER → 2024-06-04 13:42 | Outpatient (BNVA) | payer MEDICARE, BC, SELFPAY | PROVIDERS: PCP Nurse Practitioner Family; Visit Provider Internal Medicine Cardiovascular Disease | DX: I25.10 Atherosclerotic heart disease of native coronary artery without angina pectoris (principal); Z95.2 Presence of prosthetic heart valve; R94.31 Abnormal electrocardiogram [ECG] [EKG]; I45.10 Unspecified right bundle-branch block | CPT/HCPCS: 93005; 99212 ==

== ENCOUNTER 2024-06-24 12:17 | Outpatient (AMB) | payer MEDICARE, BC, SELFPAY ==
--- NOTE | 2024-06-24 12:25 | MHC.PC.OV ---
Vital Signs 06/24/24 12:31 Height 5 ft 5 in Weight 180 lb BMI 30.0 BP 122/66 Blood Pressure Location Rt brachial Position Sitting Pulse 86 Pulse Source Pulse Oximeter Pulse Oximetry (%) 96 Oxygen Delivery Method Room Air Intake Visit Reasons: Annual PE Allergies No Known Allergies [No Known Allergies*] Allergy (Verified 06/24/24 13:28) Medication List - Last Reconciled 06/24/24 by MOHIT DolanP- amlodipine 5 mg PO DAILY aspirin 81 mg PO DAILY evolocumab (Repatha SureClick) 140 mg subcut Q2W 90 days ezetimibe 10 mg PO DAILY 90 days mesalamine 800 mg (2 x 400 mg) PO BID multivitamin (Daily Multi-Vitamin tablet) 1 tab PO DAILY omeprazole 20 mg PO DAILY rosuvastatin 40 mg PO DAILY Tobacco use date assessed: 06/24/24 Fall risk assessment: No Falls in past year Last assessed Fall Risk: 06/24/24 Dental Screening Dental Screen Date: 06/24/24 Did you have a dental visit in the last 12 months?: Yes Did you have a dental problem in the last 6 months where you did not have access to dental care?: No Was dental information given to patient?: Patient has dentist HPI Annual PE HPI Details Pt is here for a PE. Will order labs. Colon screen is up to date. Pt sees urology for his PSA. Denies dribbling with urination, weak stream, and frequent nocturia. Pt follows up with cardiology and thoracics. HTN: Blood pressure is stable, managed with amlodipine 5mg. Dyslipidemia: On repatha 140mg, zetia 10mg, and rosuvastatin 40mg. Will order labs. [facility] Medical History Aortic stenosis CAD (coronary artery disease) Erectile dysfunction Ulcerative colitis Duodenal bulb ulcer Dyslipidemia HTN (hypertension) Surgical History S/P TAVR (transcatheter aortic valve replacement) H/O radical prostatectomy History of eye surgery History of discectomy History of bunionectomy History of heart bypass surgery Family History Father No problems noted. Mother Smoker Emphysema, unspecified Maternal Grandfather No problems noted. Maternal Grandmother Stroke Diabetes mellitus Amputation of leg Paternal Grandfather Cancer Paternal Grandmother No problems noted. Other Substance use disorder Social History Housing: House Alcohol intake: current Patient Tobacco Use Status: Former Tobacco user e-Cigarette/Vaping Use: Never Used Second Hand Smoke Exposure: No service: No Current occupational status: retired Cognitive needs: No Hearing needs: No Vision needs: No Questionnaire PHQ-9 Over the last 2 weeks, how often have you been bothered by any of the following problems? 42792 - PHQ-9 Billing: Patient declined-do not bill Source: Developed by Drs. Aston Keen, Stephanie Yuan, Tahir Chandra and colleagues, with an educational claritza from [email or web address]. Thrive Questionnaire Date Thrive assessed: 06/18/24 I am a: Patient What is your living situation today?: I have a steady place to live Within the past 12 months, did the food you bought not last and you didn't have the money to get more?: Never true Within the past 12 months, did you worry whether your food would run out before you got money to buy more?: Never true Do you have trouble paying for medicines?: No Do you have trouble getting transportation to medical appointments?: No Do you have trouble paying your heating and electricity bill?: No Do you have trouble taking care of your child, family member or friend?: No Do you have trouble with day-to-day activities such as bathing, preparing meals, shopping, managing finances, etc.?: No Are you interested in more education?: No Please select the resources that you would like help with: None Currently or been in a relationship where the following occur: No concerns reported THRIVE Score: 0 AUDIT C Alcohol Use Questionnaire (AUDIT-C) 1. How often do you have a drink containing alcohol?: 2-3 times a week 2. How many drinks containing alcohol do you have on a typical day when you are drinking?: 1 or 2 3. How often do you have six or more drinks on one occasion?: Less than monthly Total Score: 4 NISA-7 AMB Questionnaire NISA-7 Date NISA - 7 assessed: 12/26/23 Feeling nervous, anxious, or on edge: 0 = Not at all Not being able to stop or control worryin = Not at all Worrying too much about different things: 0 = Not at all Trouble relaxin = Not at all Being so restless that it is hard to sit still: 0 = Not at all Becoming easily annoyed or irritable: 0 = Not at all Feeling afraid as if something awful might happen: 0 = Not at all Total NISA-7 score (0-4 normal; 5-9 mild; 10-14 moderate; 15-21 severe): 0 Source: Developed by Drs. Aston Keen, Stephanie Yuan, Tahir Chandra and colleagues, with an educational claritza from [email or web address]. NISA-7 Assessment Billing NISA-7 Assessment Tool: NISA-7 Assessment 36605 Review of Systems Const Denies chills and Denies fever(s) Eyes Denies blurry vision ENT Denies vertigo, Denies dizziness and Denies sore throat Card Denies chest pain at rest, Denies chest pain with activity, Denies diaphoresis, Denies dyspnea and Denies dyspnea on exertion Resp Denies cough, Denies dyspnea, Denies dyspnea on exertion and Denies wheezing GI Denies abdominal pain, Denies melena, Denies hematochezia, Denies constipation, Denies diarrhea and Denies loose stools Denies hematuria Musc Denies numbness and Denies tingling Skin/Breast Denies lesions Neuro Denies vertigo, Denies dizziness, Denies numbness and Denies tingling Psych Denies anxiety, Denies depression, Denies homicidal ideation, Denies suicidal ideation and Denies other (substance abuse) Aller/Immun Denies wheezing Physical exam (Primary Care) Vital Signs: Last Vital Signs Pulse 86 06/24/24 12:31 BP 122/66 06/24/24 12:31 Pulse Ox 96 06/24/24 12:31 Oxygen Delivery Method Room Air 06/24/24 12:31 BMI result Body Mass Index 30.0 Tobacco/Smoking Status: Tobacco use Status Tobacco use date assessed 06/24/24 06/24/24 12:36 Patient Tobacco Use Status Former Tobacco user 06/24/24 12:25 e-Cigarette/Vaping Use Never Used 06/24/24 12:25 Thrive Assessment: Date of Thrive Assessment Date Thrive assessed 06/18/24 06/24/24 12:25 Currently or been in a relationship where the following occur: No concerns reported Const General: cooperative Nutritional Appearance: well nourished Orientation/consciousness: patient oriented x3 HENMT Head: Yes normal to inspection, Yes normocephalic and Yes atraumatic Ears: TM's normal bilaterally Eyes General: appearance normal, both eyes and all related structures Alignment and Position: alignment normal and position normal Neck Neck: Yes normal visual inspection, Yes no lymphadenopathy and Yes supple Resp Effort & Inspection: normal respiratory effort Auscultation: clear to auscultation bilaterally Cardio Rate: regular rate Rhythm: regular rhythm Heart sounds: S1 normal heart sound present, S2 normal heart sound present and no murmurs GI Palpation (GI): Soft to palpation and nontender Auscultation: normal bowel sounds Male General Exam: Yes normal external exam Penis: normal penis Scrotum: scrotum normal, testes descended bilaterally and no inguinal hernias Testes: no testicular mass Skin Rashes: no rashes Neuro General: patient oriented x3, moves all extremities, no focal motor deficits and deep tendon reflexes 2+ bilaterally Romberg Test: Negative Psych Appearance: grossly normal Mental Status: mental status grossly normal Speech and movement: Normal speech and movement present Affect: normal affect Attitude: cooperative Thought process: Normal thought process present Thought content: Normal thought content present Insight: Good insight present (Psych) Judgement: Good judgement present (Psych) Coding Level of Care Code Est Pt Prev Care >65y(34345) Diagnoses Hypertension, unspecified type I10 Hypertension type: unspecified Dyslipidemia E78.5 Screening PSA (prostate specific antigen) Z12.5 Additional Codes NISA-7 Assessment Billing - NISA-7 Assessment Tool: NISA-7 Assessment 31406 ([id number]) Assessment & Plan Assessment & Plan (1) HTN (hypertension): Comment: Controlled Code(s): I10 - Essential (primary) hypertension Category: Medical Qualifiers: Hypertension type: unspecified Qualified Code(s): I10 - Essential (primary) hypertension Plan: Stable, labs ordered (2) Dyslipidemia: Code(s): E78.5 - Hyperlipidemia, unspecified Category: Medical Plan: Labs ordered, continue current meds (3) Screening PSA (prostate specific antigen): Code(s): Z12.5 - Encounter for screening for malignant neoplasm of prostate Category: Medical Plan: PSA ordered, sees urology Plan The patient agreed to the use of a medical genetics director for this encounter. Scribed for BILL Bosch- by Elizabeth Garrido medical genetics director, on 06/24/2024 at 13:05 EST. Orders: Orders Complete Blood Count Auto Diff Today E78.5 - Hyperlipidemia, unspecified, I10 - Essential (primary) hypertension UA CC w/rflx Micro + Cult Today E78.5 - Hyperlipidemia, unspecified, I10 - Essential (primary) hypertension Prostate Specific Antigen Scr Today Z12.5 - Encounter for screening for malignant neoplasm of prostate Comprehensive [place]. Panel Fast Today E78.5 - Hyperlipidemia, unspecified, I10 - Essential (primary) hypertension TSH reflex Free T4 Today E78.5 - Hyperlipidemia, unspecified, I10 - Essential (primary) hypertension Lipid Panel Today E78.5 - Hyperlipidemia, unspecified, I10 - Essential (primary) hypertension
[2024-06-24 12:31] VITALS: BP 122/66; PULSE 86; O2SAT 96
== END 2024-06-24 15:18 | disposition home or self-care (01) ==
PROVIDERS: PCP Nurse Practitioner Family; Visit Provider Nurse Practitioner Family
DX: Z00.00 Encounter for general adult medical examination without abnormal findings (principal); I10 Essential (primary) hypertension; E78.5 Hyperlipidemia, unspecified; Z12.5 Encounter for screening for malignant neoplasm of prostate

== ENCOUNTER → 2024-06-24 12:17 | Outpatient (BNVA) | payer MEDICARE, BC, SELFPAY | PROVIDERS: PCP Nurse Practitioner Family; Visit Provider Nurse Practitioner Family | DX: I10 Essential (primary) hypertension (principal); E78.5 Hyperlipidemia, unspecified | CPT/HCPCS: 96127; 99397 ==

== ENCOUNTER 2024-09-10 07:49 | Outpatient (REF) | payer MEDICARE, BC, SELFPAY ==
[2024-09-10 10:46] LABS: MANUAL DIFF FLAG NO
[2024-09-10 11:00] LABS: Appearance Urine Turbid; Color Urine Dark Yellow; Glucose Urine UA Negative (Negative); Leukocyte Esterase Urine Negative (Negative); Nitrite Urine Negative (Negative); PH 5.5 (5.0-9.0); Urine Blood Negative (Negative); Urine Ketones Negative (Negative); Urine Protein Negative (Neg-Trace)
[2024-09-10 11:04] LABS: Basophils Percent Auto 0.4 % (0-2); Eosinophils Absolute Auto 0.3 X10*3/uL (0.0-0.4); Hematocrit 47.9 % (42.0-52.0); Hemoglobin 16.2 g/dl (14.0-18.0); Imm Gran Abs Auto 0.02 X10*3/uL (0.00-0.03); Imm Gran Pct Auto 0.3 % (0.0-0.4); Lymphocytes Absolute Auto 1.3 X10*3/uL (1.2-4.9); Lymphocytes Percent Auto 18.9 % (20-40); Mean Corpuscular HGB Conc 33.8 g/dl (31.0-36.0); Mean Corpuscular Hemoglobin 32.1 pg (27.0-33.0); Mean Platelet Volume 9.8 fL (9.4-12.4); Monocytes Absolute Auto 0.8 X10*3/uL (0.1-1.2); Neutrophils Absolute Auto 4.5 x10*3/uL (2.0-8.3); Neutrophils Percent Auto 64.4 % (45-73); Platelet Count 238 X10*3/uL (160-400); Red Blood Count 5.04 X10*6/uL (4.60-5.80); Red Cell Distribution Width 12.8 % (11.0-16.0)
[2024-09-10 11:12] LABS: Alanine Aminotransferase 28 U/L (0-40); Albumin Level 4.3 g/dL (3.5-5.0); Alkaline Phosphatase 42 U/L (39-117); Anion Gap 13 (12-20); Aspartate Amino Transferase 42 U/L (5-37); Bilirubin Total 0.8 mg/dL (0.0-1.0); Blood Urea Nitrogen 17 mg/dL (9-16); Calcium 9.3 mg/dL (8.4-10.2); Carbon Dioxide 26 mmol/L (22-29); Chloride 107 mmol/L (96-108); Cholesterol 105 mg/dL (<200); Estimated Glomerular Filt Rate > 60; Glucose Fasting 92 mg/dL (60-99); HDL Cholesterol 64 mg/dL (>40); LDL Cholesterol Calculated 25 mg/dL (<100); Potassium 3.8 mmol/L (3.3-5.1); Sodium 142 mmol/L (135-145); Total Protein 7.5 g/dL (6.5-8.0); Triglycerides 80 mg/dL (<150)
[2024-09-10 11:28] LABS: TSH reflex Free T4 1.51 uIU/mL (0.32-4.0)
[2024-09-10 11:32] LABS: Prostate Specific Antigen Scr < 0.10 ng/mL (<0.05-4.0)
== END 2024-09-10 07:50 | disposition home or self-care (01) ==
LOC: HO.WFDLDS 07:49
PROVIDERS: Visit Provider Nurse Practitioner Family
DX: I10 Essential (primary) hypertension (principal); E78.5 Hyperlipidemia, unspecified; Z12.5 Encounter for screening for malignant neoplasm of prostate
CPT/HCPCS: 36415; 80053; 80061; 81003; 84153; 84443; 85025

== ENCOUNTER 2024-11-20 09:03 | Outpatient (REF) | payer MEDICARE, BC, SELFPAY ==
--- OUTSIDE RECORDS SUMMARY | 2024-11-20 09:36 | XMS_ITS ---
Author Organization [facility] Address [address] [place] [address] Care Team Providers Care Seismology Teacher Name Role Phone NANCISAMIA NERY Primary Care Provider Aston Grant [phone] REASON FOR VISIT need refill on his omeprazole Encounters Encounter Location Date Provider Diagnosis [facility] [address] [place] [address] 04/21/2024 Aston Denis Plan Of Treatment No Information Progress Notes * LUIS FELIPE GARNICA ADOB:1950 (74 yo M)Acc No.[id number]:04/21/2024 Patient:?LUIS FELIPE GARNICA :1950???Age:74 Y???Sex:Male Address:[address] [place] [address] * true * Date:? Generated for Elliotti amanda/Ronny/eTransmitting on:?11/20/2024 09:35 AM EDT
--- OUTSIDE RECORDS SUMMARY | 2024-11-20 09:36 | XMS_ITS | Clinical Summary ---
Author Organization [facility] Address [address] [place] [address] Phone Care Team Providers Care Finished Goods Planner Name Role Phone Dinesh Feliz NP Primary Care Provider [phone] Allergies No known active allergies Medications aspirin 81 mg EC tablet Take 81 mg by mouth. 04/11/2023 Active amLODIPine (NORVASC) 5 mg tablet Take 1 tablet (5 mg total) by mouth 1 (one) time each day. 09/09/2023 Active azithromycin (ZITHROMAX) 250 mg tablet TAKE 2 TABLETS BY MOUTH TODAY, THEN TAKE 1 TABLET DAILY FOR 4 DAYS DIRECTED 07/24/2023 Active docusate sodium (COLACE) 100 mg capsule Take 1 capsule (100 mg total) by mouth 2 (two) times a day. 08/30/2023 Active doxycycline (MONODOX) 100 mg capsule Take 1 capsule (100 mg total) by mouth 2 (two) times a day. 08/30/2023 Active ezetimibe (ZETIA) 10 mg tablet Take 1 tablet (10 mg total) by mouth 1 (one) time each day. 09/09/2023 Active lisinopriL (PRINIVIL,ZESTR IL) 5 mg tablet Take 1 tablet (5 mg total) by mouth 1 (one) time each day. 09/09/2023 Active mesalamine (DELZICOL) 400 mg capsule (with del rel tablets) DR capsule Take 2 capsules (800 mg total) by mouth 2 (two) times a day. 07/07/2023 Active omeprazole (PriLOSEC) [address] capsule Take 1 capsule (20 mg total) by mouth 1 (one) time each day. 07/03/2023 Active oxyCODONE (ROXICODONE) 5 mg immediate release tablet Take 1 tablet (5 mg total) by mouth every 30 minutes as needed. Max Daily Amount: 30 mg 08/30/2023 Active rosuvastatin 40 mg capsule, sprinkle Take 40 mg by mouth. 11/15/2021 Active senna (SENOKOT) 8.6 mg tablet TAKE 2 TABLETS BY MOUTH DAILY AT BEDTIME 08/30/2023 Active acetaminophen (TYLENOL) 325 mg tablet TAKE 3 TABLETS BY MOUTH EVERY 8 HOURS DO NOT EXCEED MORE THAN 4,000 MG IN 24 HOURS 08/30/2023 Active evolocumab (Repatha SureClick) 140 mg/mL pen injector injection Active Active Problems Problem Noted Date Diagnosed Date History of lung cancer 10/14/2024 Assessment & Plan (10/28/2024 2:19 PM EST): Mr. 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 No adjuvant treatment was recommended. The patient's most recent surveillance chest CT scan performed in September 2024 shows no new, or worsening, pulmonary nodule or thoracic adenopathy to suggest recurrence or new disease. He does have a stable calcified granuloma in the right middle lobe. We will continue with routine chest CT surveillance the next of which will be in 6 months, March 2025. Patient have a follow-up visit in the office after that next scan. Resolved Problems Problem Noted Date Diagnosed Date Resolved Date Primary mucinous adenocarcinoma of lung 06/03/2024 10/14/2024 Encounters Date Type Department Care Team Description 10/29/2024 9:45 AM EST Office Visit Thoracic Surgery - [place] [facility] [address] [place] [address] Billie Amin PA History of lung cancer (Primary Dx) 09/18/2024 1:05 PM EST - 09/18/2024 11:59 PM EST Hospital Encounter [facility] CT Scan [address] [place] [address] H/O malignant neoplasm of lung Discharge Disposition: Home or Self Care from Last 3 Months Surgical History Surgery Date Site/Laterality Comments CARDIAC VALVE SURGERY PROCEDURE:CARDIAC VALVE SURGERY PROSTATE SURGERY PROCEDURE:PROSTATE SURGERY CORONARY ARTERY BYPASS GRAFT PROCEDURE:CORONARY ARTERY BYPASS GRAFT Medical History Medical History Date Comments Prostate cancer (CMS/HCC) DX:Pro state cancer (HCC) Coronary artery disease DX:Coron chaya artery disease Lung cancer (CMS/HCC) DX:Lung ca ncer (HCC) Hypertension DX:Hypertension 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CMS/HCC) 06/03/2024 Family History Medical History Relation Name Comments Cancer Paternal Grandfather ? colon Relation Name Status Comments Paternal Grandfather Social History Tobacco Use Types Packs/Day Years Used Date Smoking Tobacco: Former Cigarettes Q uit: 09/09/1978 Smokeless Tobacco: Never Alcohol Use Standard Drinks/Week Comments Yes 0 (1 standard drink = 0.6 oz pur e alcohol) Sex and Gender Information Value Date Recorded Sex Assigned at Male 09/17/2024 2:49 PM EST Legal Sex Male 7:47 AM EST Gender Identity Male 09/17/2024 2:49 PM EST Sexual Orientation Straight 09/17/2024 3: 00 PM EST Obstetrics History Last Filed Vital Signs Vital Sign Reading Time Taken Comments Blood Pressure 156/77 10/29/2024 9:37 AM EST Pulse 82 10/29/2024 9:37 AM EST Temperature 36.6 ??C (97.9 ??F) 10/29/2024 9:37 AM ES T Respiratory Rate - - Oxygen Saturation - - Inhaled Oxygen Concentration - - Weight 85.3 kg (188 lb) 10/29/2024 9:37 AM EST Height 165.1 cm (5' 5 ) 10/29/2024 9:37 AM EST Body Mass Index 31.28 10/29/2024 9:37 AM EST Plan of Treatment Upcoming Encounters Date Type Department Care Team (Late st Contact Info) Description 03/31/2025 3:30 PM EDT Appointment [facility] CT Scan [address] [place] [id number] 04/16/2025 9:00 AM EDT Office Visit [facility] Hematology Oncology [address] [place] [address] Nikki Dallas MD [address] [place] [address] Health Maintenance Due Date Last Done Comments COVID-19 Vaccine (#1) 01/07/1955 Pneumococcal Vaccine: 50+ Years (2 of 2 - PCV) 11/30/2019 11/29/2018 Abdominal Aortic Aneurysm (AAA) Screen 10/08/2023 Cholesterol Screening (Lipid Panel) 10/08/2023 Colorectal Cancer Screening: Colonoscopy 10/08/2023 Depression Screening 10/08/2023 Falls Risk Assessment 10/08/2023 Hepatitis C Screening 10/08/2023 Medicare Annual Wellness Visit 10/08/2023 Social Influencers of Health Screening 10/08/2023 Influenza Vaccine (#1) 2024 8, 10/18/2017 Hypertension/CHF/CAD Annual BMP Blood Test 06/21/2024 DTaP,Tdap,and Td Vaccines (3 - Td or Tdap) 11/26/2026 11/26/2016, 11/07/2016 RSV Immunization Patients 60 + Years Old (1 - 1-dose 75+ series) 01/07/2027 Zoster Vaccines Completed 04/19/2018, 11/29/2017 HIB Vaccines Aged Out No longer eligi ble based on patient's age to complete this topic HPV Vaccines Aged Out No longer eligi ble based on patient's age to complete this topic Hepatitis A Vaccines Aged Out No long er eligible based on patient's age to complete this topic Hepatitis B Vaccines Aged Out No long er eligible based on patient's age to complete this topic IPV Vaccines Aged Out No longer eligi ble based on patient's age to complete this topic MMR Vaccines Aged Out No longer eligi ble based on patient's age to complete this topic Meningococcal ACWY Vaccine Aged Out N o longer eligible based on patient's age to complete this topic Meningococcal B Vacine Aged Out No lo nger eligible based on patient's age to complete this topic RSV Immunization Patients Under 20 months Aged Out No longer eligible b ased on patient's age to complete this topic Varicella Vaccines Aged Out No longer eligible based on patient's age to complete this topic Procedures Procedure Name Priority Date/Time Associated Diagnosis Comments CT CHEST WO CONTRAST Routine 09/18/2024 1:43 PM EST H/O malignant neoplasm of lung from Last 3 Months Results * CT Chest wo Contrast (09/18/2024 1:43 PM EST) Anatomical Region Laterality Modality Body Computed Tomogra phy 09/24/2024 2:10 PM EST Impressions 09/24/2024 2:13 PM EST Stable exam with prior right lower lobectomy. ??No recurrent or metastatic disease. -------- FINAL REPORT -------- Dictated By: LUIS FELIPE GANNON Dictated Date: 09/24/2024 14:10 ET Assigned Physician: LUIS FELIPE GANNON Reviewed and Electronically Signed By: LUIS FELIPE GANNON Signed Date: 09/24/2024 14:13 ET Workstation ID: [id number] Transcribed By: Self Edit Transcribed Date: 09/24/2024 14:10 ET Narrative 09/24/2024 2:13 PM EST PROCEDURE: Chest CT INDICATION: Non-small cell lung cancer, staging TECHNIQUE: Chest CT without contrast. Multi planar reformats were created and interpreted. The examination was performed utilizing dose reduction techniques. ??Total DLP 697 COMPARISON: ??03/18/2024. FINDINGS: LUNGS/PLEURA: Central airways are patent. ??Right lower lobectomy. ??Emphysema. ??Calcified granuloma in the right middle lobe, unchanged. ??No new or suspicious pulmonary nodules. ??No pleural effusion or pneumothorax. ??Chronic right pleural thickening and adjacent scarring, stable compared to prior. MEDIASTINUM: Thyroid gland is normal. ??No mediastinal or hilar lymphadenopathy. ??Esophagus is normal. ??Cardiac chambers are stable in size with old inferior myocardial infarction noted. ??Prior coronary artery bypass graft. ??Aortic valve prosthesis. ??No pericardial effusion. CHEST WALL: No axillary lymphadenopathy or superficial hematoma. UPPER ABDOMEN:Left renal cyst. ??Hepatic steatosis. BONES: Median sternotomy. ??No suspicious lytic or blastic lesions. Procedure Note Luis Felipe Gannon MD - 09/24/2024 PROCEDURE: Chest CT INDICATION: Non-small cell lung cancer, staging TECHNIQUE: Chest CT without contrast. Multi planar reformats were createdand interpreted. The examination was performed utilizing dose reductiontechniques. Total DLP 697 COMPARISON: 03/18/2024. FINDINGS: LUNGS/PLEURA: Central airways are patent. Right lower lobectomy.Emphysema. Calcified granuloma in the right middle lobe, unchanged. Nonew or suspicious pulmonary nodules. No pleural effusion or pneumothorax.Chronic right pleural thickening and adjacent scarring, stable comparedto prior. MEDIASTINUM: Thyroid gland is normal. No mediastinal or hilarlymphadenopathy. Esophagus is normal. Cardiac chambers are stable insize with old inferior myocardial infarction noted. Prior coronary arterybypass graft. Aortic valve prosthesis. No pericardial effusion. CHEST WALL: No axillary lymphadenopathy or superficial hematoma. UPPER ABDOMEN:Left renal cyst. Hepatic steatosis. BONES: Median sternotomy. No suspicious lytic or blastic lesions. IMPRESSION: Stable exam with prior right lower lobectomy. No recurrent or metastaticdisease. -------- FINAL REPORT -------- Dictated By: LUIS FELIPE GANNON Dictated Date: 09/24/2024 14:10 ET Assigned Physician: LUIS FELIPE GANNON Reviewed and Electronically Signed By: LUIS FELIPE GANNON Signed Date: 09/24/2024 14:13 ET Workstation ID: [id number] Transcribed By: Self Edit Transcribed Date: 09/24/2024 14:10 ET Billie LEY IMG CT PROCEDURES Final Resul t from Last 3 Months Insurance MEDICARE [facility] Care Teams Finished Goods Planner Relationship Specialty Start Date End Date Dinesh Feliz NP [address] [place], [place] PCP - General 09/04/23
--- OUTSIDE RECORDS SUMMARY | 2024-11-20 09:36 | XMS_ITS ---
Author Organization [facility] Address [address] [place] [address] Care Team Providers Care Dyslexia Teacher Name Role Phone NERY SNEED Primary Care Provider Aston Grant [phone] REASON FOR VISIT ulcerative rectosigmoiditis,hx polyps,screening,gerd Problems Problem Type SNOMED Code ICD Code Onset Dates Problem Status W/U Status Risk Notes Problem History of polyp of colon (situation) (823328635) Personal history of colonic polyps (Z86.010) Active confirmed Problem Diverticular disease of colon (860947176) Diverticulosis of large intestine without perforation or abscess without bleeding (K57.30) Active confirmed Problem Chronic gastritis (2013149) Gastritis, chronic (K29.50) Active confirmed Problem Gastroesophageal reflux disease (391941659) Gastroesophageal reflux disease (K21.9) Active confirmed Encounters Encounter Location Date Provider Diagnosis [facility] [place] Outpatient [address] [place] [phone] 01/22/2024 Aston Denis Encounter for screen ing [...] LUIS FELIPE GARNICA ADOB:1950 (74 yo M)Acc No.[id number]:01/22/2024 EGD and COL/MAC Patient:?LUIS FELIPE GARNICA A Provider:?Aston Denis MD :1950???Age:74 Y???Sex:Male Jose e:01/22/2024 [facility] Pcp:NERY SNEED Subjective: * Chief Complaints: * ???1. Ulcerative rectosigmoi ditis,hx polyps,screening,gerd. * Medical History:? Objective: * Vitals:? 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 Plan: * Treatment: * Procedure Codes:?78679 COLON OSCOPY AND BIOPSY, Modifiers: PT , 0529F INTRVL 3+YRS PTS CLNSCP DOCD, 0528F RCMND FLW-UP 10 YRS DOCD, 14874 UPPER GI ENDOSCOPY, BIOPSY * * The named appointment provid er may or may not be the originator of this progress note, and it is not deemed complete until electronically signed by the appointment provider. Sign off status: Pending * Provider:?Aston Denis MD Date:? 024 Generated for Ludy patel/Ronny/Millicent on:?11/20/2024 09:36 AM EDT
--- OUTSIDE RECORDS SUMMARY | 2024-11-20 09:36 | XMS_ITS | Patient Health Record ---
Author Organization [facility] Address [address] [place] [address] Care Team Providers Care Dynamometer Mechanic Name Role Phone NERY FELIZ Primary Care Provider Aston Grant Unavailable [phone] Allergies No Known Allergies Results Component Value Reference Range Notes Pathology Reviewed date:02/02/2024 10:52:39 PM Interpretation: Performing Lab:[facility], [address] [place] [id number] Notes/Report: Name: Luis Felipe Garnica Age/Sex: 74/M : 1950 Unit#: [id number] Attend Dr: Aston Denis Re01/22/24 Status : [facility] Location: [facility] Disch: SPEC : [id number] RECD : 01/22/24 STATUS: ELSI MELVIN NUM: [id number] EVER: 01/22/24 [facility] DR: Aston Denis ENTERED: 01/22/24 SP TYPE: Surgical OTHR DR: Nery Feliz [facility]- ORDERED: HE Stain/15 , Gross Micro L4/5 Diagnosis A. Colon, ascending, biopsy: Colonic mucosa within normal limits. B. Colon, transverse , biopsy: Colonic mucosa within normal limits. C. Colon, descending , biopsy: Colonic mucosa within normal limits. D. Colon, sigmoid, b iopsy: Colonic mucosa within normal limits. E. Rectum, biopsy: R ectal mucosa within normal limits. Comment: No dysplasia is seen. Clinical History Pre-Op Dx: Hx coloni c polyps, screening, GERD, UC Post-Op Dx: Upper: h iatal hernia; Lower: diverticulosis and hemorrhoids Microscopic Description A-E. Microscopic sec tions reviewed. Material Received A. Ascending colon bx B. Transverse colon bx C. Descending colon bx D. Sigmoid colon bx E. Rectal bx Gross Description Received in five parts. Part A: Received in formalin labeled ?ascending colon bx's (sic)? are 3 li irregular tissue fragments ran ging from 0.15-0.25 cm, submitted in toto in a cassette labeled A. Part B: Received in formalin labeled ?transverse colon bx? are 6 li-pink irregular tissue fragments ranging fr om 0.25 to 0.35 cm, submitted in toto in a cassette labeled B. Part C: Received in formalin labeled ?descending colon bx? are 5 li irregular and rectangular tissue f ragments ranging from 0.25-0.4 cm, submitted in toto in a cassette labeled C. CONTINUED ON NEXT PAGE Name: Luis Felipe Garnica Age/Sex: 74/M : 1950 Unit#: [id number] Attend Dr: Aston Denis Re01/22/24 [place] : [facility] [place]: [facility] Disch: SPEC : [id number] RECD : 01/22/24 STATUS: RIMAAmanda MELVIN NUM: [id number] EVER: 01/22/24 [facility] DR: Aston Denis ENTERED: 01/22/24-05 27 SP TYPE: Surgical OTHR DR: Nery Feliz [facility]- ORDERED: HE Stain/15 , Gross Micro L4/5 Gross Description (Continued) Part D: Received in formalin labeled ?sigmoid colon bx? are 6 li irregular tissue fragments each measu ring 0.3 cm, submitted in toto in a cassette labeled D. Part E: Received in formalin labeled ?rectal bx? are 3 li irregular tissue fragments ranging from 0.15-0. 25 cm, submitted in toto in a cassette labeled E. CEDS Copies To: Nery Feliz [facility] [address] [place] [id number] Aston Denis [address] [place] [address] [phone] TAMIA Garcia [id number] Signed (si gnature on file) Trey Santana MD 01/24/24 0641 END OF REPORT Reason For Referral No Information Medications Medication SIG (Take, Route, Frequency, Duration) Notes Start Date End Date Status Rosuvastatin Calcium 40 MG 1 tablet Oral Once a day Active Lisinopril 5 MG 1 tablet Oral Once a day Active Multi Vitamin/Minerals - one tablet Oral ly once a day Active Ezetimibe 10 MG 1 tablet Oral Once a day Active sulfaSALAzine 500 MG 2 tablets Orally BID Not-Taking Tamsulosin HCl 0.4 MG 1 capsule Oral Onc e a day Active Metoprolol Tartrate 50 MG 1 tablet with food Orally as directed Active Evolocumab 140 MG/ML 1 mL Subcutaneous f or 30 day(s) Active Clopidogrel Bisulfate 75 MG 1 tablet Orally Once a day for 30 day(s) Active Multi Vitamin - 1 tablet Orally Once a day for 30 day(s) Active Mesalamine 400 MG 2 tablets Orally Twi ce a day Active Polyethylene Glycol - as directed Active Omeprazole 20 MG TAKE [address] [facility] EVERY DAY FOR 90 DAYS for 90 Active Sennosides 8.6 MG 2 tablets at bedtime as needed Orally Once a day for 30 day(s) Active Aspir-Low 81 MG 1 tablet Orally Once a day for 30 day(s) Active amLODIPine Besylate 5 MG 1 tablet Orally Once a day for 30 day(s) Active Docusate Sodium 100 MG 1 capsule as need ed Orally Once a day for 30 day(s) Active Acetaminophen 325 MG 1 tablet as needed Orally every 6 hrs Active oxyCODONE HCl 5 MG 1 tablet as needed Orally every 6 hrs Active Folic Acid 1 MG 1 tablet Orally Once a day for 30 Active Lidocaine 4 % 1 patch as needed Externally Once a day Active Immunizations Vaccine Route Administration Date Status Comme nts Influenza Unknown 04/09/2018 Administered Influenza Unknown 09/09/2023 Administered Social History Tobacco Use: Social History Observation Description Date Details (start date - stop date) Former Smoker NA - NA Tobacco Use/Smoking Question Answer Notes Patient is a former smoker When did you stop smoking? 39 years ago How long has it been since you last smoked? > 10 years Alcohol Screen Question Answer Notes Did you have a drink contain ing alcohol in the past year? Yes How often did you have a dri nk containing alcohol in the past year? 2 to 4 times a month (2 points) How many drinks did you have on a typical day when you were drinking in the past year? 3 or 4 drinks (1 point) How often did you have 6 or more drinks on one occasion in the past year? Less than monthly (1 point) Points 4 Interpretation Positive Section Notes: Nonsmoker x 33 years; no sig nificant alcohol Nonsmoker x 33 years; no sig nificant alcohol Nonsmoker x 33 years; no sig nificant alcohol Nonsmoker x 33 years; no sig nificant alcohol Problems Problem Type SNOMED Code ICD Code Onset Dates Problem Status W/U Status Risk Notes Problem 392814894 Encounter for screening for malignant neoplasm of colon (Z12.11) Active confirmed Problem 586031378 History of adenomatous polyp of colon (Z86.010) Active confirmed Problem History of polyp of colon (situation) (187262762) Personal history of colonic polyps (Z86.010) Active confirmed Problem Diverticular disease of colon (313436573) Diverticulosis of large intestine without perforation or abscess without bleeding (K57.30) Active confirmed Problem Gastroesophageal reflux disease (729766932) Gastroesophageal reflux disease (K21.9) Active confirmed Problem 17260523 Duodenal ulcer with hemorrhage (K26.4) Active confirmed Problem Chronic gastritis (7407860) Gastritis, chronic (K29.50) Active confirmed Problem 74104989 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) Active confirmed Problem 353237981 Gastroesophageal reflux disease with esophagitis without hemorrhage (K21.00) Active confirmed Encounters Encounter Location Date Provider Diagnosis [facility] [place] [address] [place] [phone] 01/22/2024 Aston Denis Encounter for screen ing colonoscopy Z12.11 ; Personal history of colonic polyps Z86.010 ; 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 ; Diverticulosis of large intestine without perforation or abscess without bleeding K57.30 ; Other hemorrhoids K64.8 ; Hiatal hernia K44.9 ; Gastritis, chronic K29.50 and Gastroesophageal reflux disease K21.9 [facility] [address] [place] [address] 04/21/2024 Aston Denis Assessments Encounter Date Diagnosis (ICD Code) Assessment [...] disease (ICD-10 - K21.9) Plan Of Treatment Future Test Test Name Order Date UPPER GI ENDOSCOPY 08/05/2012 COLONOSCOPY 08/05/2012 COLONOSCOPY 10/17/2017 UPPER GI ENDOSCOPY 09/18/2023 COLONOSCOPY 09/18/2023 Insurance Providers Payer Name Payer Address Payer Phone Subscriber Number Group Number Insured Name Patient Relationship to Insured Coverage Start Date Coverage End Date MEDICARE OF [place] [address] [facility] [place] [address] [id number] LUIS FELIPE AGRNICA Self - patient is the insured [facility] [address] [place], [place] [id number] LUIS FELIPE GARNICA Self - patient is the insured Medical (General) History Medical History History ICD Code Ulcerative Colitis--diagnose d in the -colonoscopy in 09/2012--no active colitis nor polyps--bx neg. for dysplasia; tubular adenoma removed in 2007; colonoscopy in 12/2017 neg. for active colitis nor dysplasia, 1 small tubular adenoma removed. Hyperlipidemia RI 1994, 5V CABG in 1995-no prolems sinc e-sees Dr. Chapa Denies DM,CVA,Lung disease,renal disease Negative EGD in 09/2012 --small HH, no es ophagitis/Raymond's BPH UGI Bleed in 11/2018-duodenal ulcer, neg. gastric bx for Hpylori--he was on asprin 325mg---ulcer was treated with Gold probe cautery and Epi sclerotherapy; also noted was some erosive esophagitis and a small to moderate-sized HH Prostate cancer 2018 with surgery TAVR aortic valve 04/2023 Dr. Chapa Right lower lobe lung cancer -adenocarcinoma 08/2023 Dr. Ibarra--negative PET-CT other than the lung Surgical History Surgery Date(Month/Year) C-spine surgery 5V CABG 1995 [facility] as a child Prostatectomy 2018 TAVR 04/2023 RLL for cancer as above 08/2023 Hospitalization History Reason Date(Month/Year) Lung removed 08/31
--- OUTSIDE RECORDS SUMMARY | 2024-11-20 09:36 | XMS_ITS ---
Author Organization [facility] Address [address] [place] [address] Care Team Providers Care Embalmer Assistant Name Role Phone NERY SNEED Primary Care Provider Aston Grant [phone] Allergies No Known Allergies REASON FOR VISIT Patient presents today for a colon screening Medications Medication SIG (Take, Route, Frequency, Duration) Notes Start Date End Date Status sulfaSALAzine 500 MG 2 tablets Orally BID Not-Taking Folic Acid 1 MG 1 tablet Orally Once a day for 30 Active Omeprazole 20 MG 1 Orally Once a day for 90 days 04/07/2023 Active Rosuvastatin Calcium 40 MG 1 tablet Oral Once a day Active Lisinopril 5 MG 1 tablet Oral Once a day Active Ezetimibe 10 MG 1 tablet Oral Once a day Active Tamsulosin HCl 0.4 MG 1 capsule Oral Onc e a day Active Metoprolol Tartrate 50 MG 1 tablet with food Orally as directed Active Multi Vitamin/Minerals - one tablet Oral ly once a day Active Docusate Sodium 100 MG 1 capsule as need ed Orally Once a day for 30 day(s) Active Acetaminophen 325 MG 1 tablet as needed Orally every 6 hrs Active oxyCODONE HCl 5 MG 1 tablet as needed Orally every 6 hrs Active Lidocaine 4 % 1 patch as needed Externally Once a day Active Clopidogrel Bisulfate 75 MG 1 tablet Orally Once a day for 30 day(s) Active Polyethylene Glycol - as directed Active Sennosides 8.6 MG 2 tablets at bedtime as needed Orally Once a day for 30 day(s) Active Aspir-Low 81 MG 1 tablet Orally Once a day for 30 day(s) Active amLODIPine Besylate 5 MG 1 tablet Orally Once a day for 30 day(s) Active Evolocumab 140 MG/ML 1 mL Subcutaneous f or 30 day(s) Active Multi Vitamin - 1 tablet Orally Once a day for 30 day(s) Active Mesalamine 400 MG 2 tablets Orally Twi ce a day Active Social History Tobacco Use: Social History Observation [...] Problem Status W/U Status Risk Notes Problem [id number] Gastroesophageal reflux disease with esophagitis without hemorrhage (K21.00) Active confirmed Vital Signs Temperature 96.9 degrees Fahrenheit 09/18/19 24 Blood pressure systolic 000 mm Hg 09/18/19 24 Blood pressure diastolic 00 mm Hg 024 Height 65 in 09/18/2023 Weight 174 lb 4 oz lbs 09/18/2023 BMI 28.99 kg/m2 09/18/2023 Encounters Encounter Location Date Provider [facility] [address] [place] [address] 09/18/2023 Aston Denis 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 He is not having any active symptoms of his colitis, previous peptic ulcer disease, nor any issues with ongoing reflux. We did review his lung cancer pathology report but I advised him that I do not think this represents a GI primary cancer, particularly with a negative preop PET-CT scan in that regard. However, he is due for a colonoscopy anyway in regard to his long-standing ulcerative colitis, personal history of tubular adenomas of the colon, and his last colonoscopy over 5 years ago. In addition to the colonoscopy I shall schedule him for an upper endoscopy to assess for the unlikely possibility of a GI primary adenocarcinoma, as well as to reassess his history of erosive esophagitis and peptic ulcer disease. Full consent is obtained from him for both procedures, including risks of bleeding and perforation. The procedures will be done with monitored anesthesia care. He was given the below instructions regarding adjustment of his medications for the procedures. We will also need to obtain clearance from Dr. Chapa and find out whether Dr. Chapa wants him to have prophylactic antibiotics in regard to the recent aortic valve replacement. In regard to his ulcerative colitis, I did advise him to continue his mesalamine as that does seem to be working well for him. I did advise Luis Felipe to contact me prior to the procedures if we have to postpone things as he reports that he will be meeting with an oncologist in the near future to discuss whether or not he might need further adjuvant treatment for his lung cancer. Luis Felipe was comfortable with this plan. Thank you again for allowing me to participate in Luis Felipe's care. I shall continue to keep you advised of his progress. 09/18/2023 History of adenomatous polyp of colon (ICD-10 - Z86.010) Overall, Luis Felipe seems to be doing well from a GI standpoint. He is not having any active symptoms of his colitis, previous peptic ulcer disease, nor any issues with ongoing reflux. We did review his lung cancer pathology report but I advised him that I do not think this represents a GI primary cancer, particularly with a negative preop PET-CT scan in that regard. However, he is due for a colonoscopy anyway in regard to his long-standing ulcerative colitis, personal history of tubular adenomas of the colon, and his last colonoscopy over 5 years ago. In addition to the colonoscopy I shall schedule him for an upper endoscopy to assess for the unlikely possibility of a GI primary adenocarcinoma, as well as to reassess his history of erosive esophagitis and peptic ulcer disease. Full consent is obtained from him for both procedures, including risks of bleeding and perforation. The procedures will be done with monitored anesthesia care. He was given the below instructions regarding adjustment of his medications for the procedures. We will also need to obtain clearance from Dr. Chapa and find out whether Dr. Chapa wants him to have prophylactic antibiotics in regard to the recent aortic valve replacement. In regard to his ulcerative colitis, I did advise him to continue his mesalamine as that does seem to be working well for him. I did advise Luis Felipe to contact me prior to the procedures if we have to postpone things as he reports that he will be meeting with an oncologist in the near future to discuss whether or not he might need further adjuvant treatment for his lung cancer. Luis Felipe was comfortable with this plan. Thank you again for allowing me to participate in Luis Felipe's care. I shall continue to keep you advised of his progress. 09/18/2023 Encounter for screening for malignant neoplasm of colon (ICD-10 - Z12.11) Stop the Plavix for 5 days before the procedures Do not take aspirin for 2 days before the procedures We will get a clearance from Dr. Chapa regarding the blood thinners and the procedure, and we will ask him if you need antibiotics for the Aortic valve Overall, Luis Felipe seems to be doing well from a GI standpoint. He is not having any active symptoms of his colitis, previous peptic ulcer disease, nor any issues with ongoing reflux. We did review his lung cancer pathology report but I advised him that I do not think this represents a GI primary cancer, particularly with a negative preop PET-CT scan in that regard. However, he is due for a colonoscopy anyway in regard to his long-standing ulcerative colitis, personal history of tubular adenomas of the colon, and his last colonoscopy over 5 years ago. In addition to the colonoscopy I shall schedule him for an upper endoscopy to assess for the unlikely possibility of a GI primary adenocarcinoma, as well as to reassess his history of erosive esophagitis and peptic ulcer disease. Full consent is obtained from him for both procedures, including risks of bleeding and perforation. The procedures will be done with monitored anesthesia care. He was given the below instructions regarding adjustment of his medications for the procedures. We will also need to obtain clearance from Dr. Chapa and find out whether Dr. Chapa wants him to have prophylactic antibiotics in regard to the recent aortic valve replacement. In regard to his ulcerative colitis, I did advise him to continue his mesalamine as that does seem to be working well for him. I did advise Luis Felipe to contact me prior to the procedures if we have to postpone things as he reports that he will be meeting with an oncologist in the near future to discuss whether or not he might need further adjuvant treatment for his lung cancer. Luis Felipe was comfortable with this plan. Thank you again for allowing me to participate in Luis Felipe's care. I shall continue to keep you advised of his progress. 09/18/2023 Gastroesophageal reflux disease with esophagitis without hemorrhage (ICD-10 - K21.00) Overall, Luis Felipe seems to be doing well from a GI standpoint. He is not having any active symptoms of his colitis, previous peptic ulcer disease, nor any issues with ongoing reflux. We did review his lung cancer pathology report but I advised him that I do not think this represents a GI primary cancer, particularly with a negative preop PET-CT scan in that regard. However, he is due for a colonoscopy anyway in regard to his long-standing ulcerative colitis, personal history of tubular adenomas of the colon, and his last colonoscopy over 5 years ago. In addition to the colonoscopy I shall schedule him for an upper endoscopy to assess for the unlikely possibility of a GI primary adenocarcinoma, as well as to reassess his history of erosive esophagitis and peptic ulcer disease. Full consent is obtained from him for both procedures, including risks of bleeding and perforation. The procedures will be done with monitored anesthesia care. He was given the below instructions regarding adjustment of his medications for the procedures. We will also need to obtain clearance from Dr. Chapa and find out whether Dr. Chapa wants him to have prophylactic antibiotics in regard to the recent aortic valve replacement. In regard to his ulcerative colitis, I did advise him to continue his mesalamine as that does seem to be working well for him. I did advise Luis Felipe to contact me prior to the procedures if we have to postpone things as he reports that he will be meeting with an oncologist in the near future to discuss whether or not he might need further adjuvant treatment for his lung cancer. Luis Felipe was comfortable with this plan. Thank you again for allowing me to participate in Luis Felipe's care. I shall continue to keep you advised of his progress. Plan Of Treatment Treatment Notes Assessment Notes Encounter for screening for malignant neoplasm of colon Stop the Plavix for 5 days before the procedures Do not take aspirin for 2 days before the procedures We will get a clearance from Dr. Chapa regarding the blood thinners and the procedure, and we will ask him if you need antibiotics for the Aortic valve Future Test Test Name Order Date UPPER GI ENDOSCOPY 09/18/2023 COLONOSCOPY 09/18/2023 Next Appt Details Follow Up: prn, Reason: Progress Notes * LUIS FELIPE GARNICA ADOB:1950 (73 yo M)Acc No.[id number]:09/18/2023 Progress Notes Patient:?LUIS FELIPE GARNICA A Provider:?Aston Denis MD :1950???Age:73 Y???Sex:Male Jose e:09/18/2023 Address:[address] [place] [address] Pcp:NERY SNEED Subjective: * Chief Complaints: * ???Patient presents today fo r a colon screening * HPI: ???incontinence:? I saw Luis Felipe in consultation today in regard to his underlying history of ulcerative colitis, personal history of tubular adenomas of the colon, discussion of colorectal cancer screening, history of peptic ulcer disease and erosive esophagitis, and his recent history of adenocarcinoma of the lung. ?I last saw Luis Felipe in 2019 after a hospitalization for a bleeding duodenal ulcer. Since that time he has been feeling well from a GI standpoint. His ulcerative colitis has remained in clinical remission. He reports that he was switched from his long-standing sulfasalazine to mesalamine at least a year or 2 ago due to difficulty in obtaining sulfasalazine from the pharmacy. He has not had any problems with diarrhea, hematochezia, abdominal pain, red or swollen joints, rash, nor eye problems. ?He remains on his omeprazole with good relief of reflux and no recurrent symptoms of peptic ulcer disease nor GI bleeding. He generally has a good appetite, although this has been slowly recovering after the recent surgery. He denies any dysphagia, early satiety, nausea, or vomiting. Of note, he does remain on 81 mg aspirin and Plavix in relation to previous coronary artery disease and recent placement of an aortic valve via a TAVR. ?He did undergo a right lower lobe lobectomy just last month in [place] with Dr. Ibarra. This was for what appeared to be a primary adenocarcinoma of the lung. A preop PET-CT was only positive in the lung and did not show any activity in the abdominal cavity. However, the pathologist reports that although the pathology seems consistent with a lung primary, other sites such as the GI tract should be evaluated for adenocarcinoma as well. * ROS:?General/Constitutional:?Change in appetite?denies.?Chills?denies.?Fatigue?denies.?Ophthalmologic:?Patient denies? Negative..?ENT:?Patient denies?Negative..?Respiratory:?Patient denies?No coughing/hemoptysis..?Cardiovascular:?Patient denies? No chest pain/orthopnea..?Gastrointestinal:?Comments?See HPI for details.?Genitourinary:?Patient denies? No dysuria/hematuria..?Musculoskeletal:?Patient denies? No specific arthralgias/myalgias..?Skin:?Patient denies?No rash/pruritus..?Neurologic:?Patient denies? No headaches/seizures..?Psychiatric:?Patient denies?Negative..? * Medical History:? * Surgical History:?C-spine carroll rgery 5V CABG 1995 [facility] surgery as a child Prostatectomy 2018 TAVR 04/2023 RLL for cancer as above 08/2023 * Hospitalization/Major Diagno stic Procedure:?Lung removed 08/31 * Family History:?Father: dece ased, cirrhosis.?Mother: .?Paternal Grand Father: , colon cancer at age 92, diagnosed with Colon cancer.? No family hx of colitis. * Social History:?Tobacco Use:?Tobacco Use/Smoking?Patient is a?former smoker,?When did you stop smoking??39 years ago,?How long has it been since you last smoked??> 10 years.?Drugs/Alcohol:?Alcohol Screen?Did you have a drink containing alcohol in the past year??Yes,?How often did you have a drink containing alcohol in the past year??2 to 4 times a month (2 points),?How many drinks did you have on a typical day when you were drinking in the past year??3 or 4 drinks (1 point),?How often did you have 6 or more drinks on one occasion in the past year??Less than monthly (1 point),?Points?4,?Interpretation?Positive.?Miscellaneous:?Marital status: . 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 ???Nonsmoker x 33 years; no significant alcohol. * Medications:?TakingMulti Vit gomez - Tablet 1 tablet Orally Once a dayMesalamine 400 MG Capsule Delayed Release 2 tablets Orally Twice a dayEvolocumab 140 MG/ML Solution Prefilled Syringe 1 mL Subcutaneous Clopidogrel Bisulfate 75 MG Tablet 1 tablet Orally Once a dayAspir-Low 81 MG Tablet Delayed Release 1 tablet Orally Once a dayamLODIPine Besylate 5 MG Tablet 1 tablet Orally Once a dayPolyethylene Glycol - Powder as directed Sennosides 8.6 MG Tablet 2 tablets at bedtime as needed Orally Once a dayoxyCODONE HCl 5 MG Tablet 1 tablet as needed Orally every 6 hrsLidocaine 4 % Patch 1 patch as needed Externally Once a dayDocusate Sodium 100 MG Capsule 1 capsule as needed Orally Once a dayAcetaminophen 325 MG Capsule 1 tablet as needed Orally every 6 hrsMulti Vitamin/Minerals - Tablet one tablet Orally once a dayEzetimibe 10 MG Tablet 1 tablet Oral Once a dayRosuvastatin Calcium 40 MG Tablet 1 tablet Oral Once a dayLisinopril 5 MG Tablet 1 tablet Oral Once a dayTamsulosin HCl 0.4 MG Capsule 1 capsule Oral Once a dayMetoprolol Tartrate 50 MG Tablet 1 tablet with food Orally as directedFolic Acid 1 MG Tablet 1 tablet Orally Once a dayOmeprazole 20 MG Capsule Delayed Release 1 Orally Once a dayTaking Multi Vitamin - Tablet 1 tablet Orally Once a dayTaking Mesalamine 400 MG Capsule Delayed Release 2 tablets Orally Twice a dayTaking Evolocumab 140 MG/ML Solution Prefilled Syringe 1 mL Subcutaneous Taking Clopidogrel Bisulfate 75 MG Tablet 1 tablet Orally Once a dayTaking Aspir-Low 81 MG Tablet Delayed Release 1 tablet Orally Once a dayTaking amLODIPine Besylate 5 MG Tablet 1 tablet Orally Once a dayTaking Polyethylene Glycol - Powder as directed Taking Sennosides 8.6 MG Tablet 2 tablets at bedtime as needed Orally Once a dayTaking oxyCODONE HCl 5 MG Tablet 1 tablet as needed Orally every 6 hrsTaking Lidocaine 4 % Patch 1 patch as needed Externally Once a dayTaking Docusate Sodium 100 MG Capsule 1 capsule as needed Orally Once a dayTaking Acetaminophen 325 MG Capsule 1 tablet as needed Orally every 6 hrsTaking Multi Vitamin/Minerals - Tablet one tablet Orally once a dayTaking Ezetimibe 10 MG Tablet 1 tablet Oral Once a dayTaking Rosuvastatin Calcium 40 MG Tablet 1 tablet Oral Once a dayTaking Lisinopril 5 MG Tablet 1 tablet Oral Once a dayTaking Tamsulosin HCl 0.4 MG Capsule 1 capsule Oral Once a dayTaking Metoprolol Tartrate 50 MG Tablet 1 tablet with food Orally as directedTaking Folic Acid 1 MG Tablet 1 tablet Orally Once a dayTaking Omeprazole 20 MG Capsule Delayed Release 1 Orally Once a dayNot-Taking/PRNsulfaSALAzine 500 MG Tablet Delayed Release 2 tablets Orally BIDNot-Taking/PRN sulfaSALAzine 500 MG Tablet Delayed Release 2 tablets Orally BIDDiscontinuedOmeprazole Magnesium 20 MG Tablet Delayed Release 1 tablet Orally twice a dayOmeprazole 20 MG Capsule Delayed Release TAKE 1 CAPSULE BY MOUTH EVERY DAY Medication List reviewed and reconciled with the patientDiscontinued Omeprazole Magnesium 20 MG Tablet Delayed Release 1 tablet Orally twice a dayDiscontinued Omeprazole 20 MG Capsule Delayed Release TAKE 1 CAPSULE BY MOUTH EVERY DAY Medication List reviewed and reconciled with the patient * Allergies:?N.K.D.A.yes[Aller gies Verified] Objective: * Vitals:?Wt: 174 lb 4 oz, Ht: 65 in, BMI:28.99 Index, BP: 000/00 mm Hg, Temp: 96.9. * Examination: ???General Examination: ?GENERAL APPEARANCE:?pleasant, well nourished, well developed, in no acute distress.?EYES:?sclera non-icteric.?ORAL CAVITY:?mucosa moist.?NECK/THYROID:?no cervical lymphadenopathy, neck supple.?SKIN:?nonjaundiced, no spider angiomata..?HEART:?S1, S2 normal.?LUNGS:?clear to auscultation bilaterally.?ABDOMEN:?normal bowel sounds, no guarding or rigidity, no hepatosplenomegaly, no masses palpable, soft, nontender, nondistended..?EXTREMITIES:?no edema.?NEUROLOGIC:?alert and oriented.? Assessment: * Assessment: 1.?Ulcerative rectosigmoidit is without complication - K51.30 (Primary)?2.?History of adenomatous polyp of colon - Z86.010?3.?Encounter for screening for malignant neoplasm of colon - Z12.11?4.?Gastroesophageal reflux disease with esophagitis without hemorrhage - K21.00? Overall, Luis Felipe seems to be doi ng well from a GI standpoint. He is not having any active symptoms of his colitis, previous peptic ulcer disease, nor any issues with ongoing reflux. We did review his lung cancer pathology report but I advised him that I do not think this represents a GI primary cancer, particularly with a negative preop PET-CT scan in that regard. However, he is due for a colonoscopy anyway in regard to his long-standing ulcerative colitis, personal history of tubular adenomas of the colon, and his last colonoscopy over 5 years ago. In addition to the colonoscopy I shall schedule him for an upper endoscopy to assess for the unlikely possibility of a GI primary adenocarcinoma, as well as to reassess his history of erosive esophagitis and peptic ulcer disease. Full consent is obtained from him for both procedures, including risks of bleeding and perforation. The procedures will be done with monitored anesthesia care. He was given the below instructions regarding adjustment of his medications for the procedures. We will also need to obtain clearance from Dr. Chpaa and find out whether Dr. Chapa wants him to have prophylactic antibiotics in regard to the recent aortic valve replacement. In regard to his ulcerative colitis, I did advise him to continue his mesalamine as that does seem to be working well for him. I did advise Luis Felipe to contact me prior to the procedures if we have to postpone things as he reports that he will be meeting with an oncologist in the near future to discuss whether or not he might need further adjuvant treatment for his lung cancer. Luis Felipe was comfortable with this plan. Thank you again for allowing me to participate in Luis Felipe's care. I shall continue to keep you advised of his progress. Plan: * Treatment: 2.?History of adenomatous polyp of colon?Procedure: COLONOSCOPY (Ordered for 09/18/2023)* with MACsched for 01/22/24 at 7:30 ammiralax 3.?Encounter for screening for malignant neoplasm of colon?Procedure: COLONOSCOPY (Ordered for 09/18/2023)* with MACsched for 01/22/24 at 7:30 ammiralax Notes: Stop the Plavix for 5 days before the procedures Do not take aspirin for 2 days before the procedures We will get a clearance from Dr. Chapa regarding the blood thinners and the procedure, and we will ask him if you need antibiotics for the Aortic valve ??4.?Gastroesophageal reflux disease with esophagitis without hemorrhage?Procedure: UPPER GI ENDOSCOPY (Ordered for 09/18/2023)* with MACsched for a t 7:30 am * Procedure Codes:?3017F COLOR ECTAL CA SCREEN DOC [id number] TOBACCO [id number] BP SCR NOT PRFRM REC REASON NOS * Preventive Medicine:? ??Counseling:?Care goal follow-up plan:?Above Normal BMI Follow-up?Giving encouragement to exercise,?BMI management provided?Yes.? * Follow Up:?prn * * Sign off status: Completed true * Provider:?Aston Denis MD Date:? 024 Generated for Ludy patel/Ronny/Lindaitting on:?11/20/2024 09:36 AM EDT History and Physical Notes * HPI (History of Present Illness) Category Sub-Category Detail Notes Category Not es incontinence I saw Luis Felipe in consultation today in regard to his underlying history of ulcerative colitis, personal history of tubular adenomas of the colon, discussion of colorectal cancer screening, history of peptic ulcer disease and erosive esophagitis, and his recent history of adenocarcinoma of the lung. I last saw Luis Felipe in 2019 after a hospitalization for a bleeding duodenal ulcer. Since that time he has been feeling well from a GI standpoint. His ulcerative colitis has remained in clinical remission. He reports that he was switched from his long-standing sulfasalazine to mesalamine at least a year or 2 ago due to difficulty in obtaining sulfasalazine from the pharmacy. He has not had any problems with diarrhea, hematochezia, abdominal pain, red or swollen joints, rash, nor eye problems. He remains on his omeprazole with good relief of reflux and no recurrent symptoms of peptic ulcer disease nor GI bleeding. He generally has a good appetite, although this has been slowly recovering after the recent surgery. He denies any dysphagia, early satiety, nausea, or vomiting. Of note, he does remain on 81 mg aspirin and Plavix in relation to previous coronary artery disease and recent placement of an aortic valve via a TAVR. He did undergo a right lower lobe lobectomy just last month in [place] with Dr. Ibarra. This was for what appeared to be a primary adenocarcinoma of the lung. A preop PET-CT was only positive in the lung and did not show any activity in the abdominal cavity. However, the pathologist reports that although the pathology seems consistent with a lung primary, other sites such as the GI tract should be evaluated for adenocarcinoma as well. Examination Category Sub-Category Detail Notes Category Not es General Examination GENERAL APPEARANCE: pleasant , well nourished, well developed, in no acute distress EYES: sclera non-icteric NECK/THYROID: no cervical lymphade nopathy, neck supple HEART: S1, S2 normal LUNGS: clear to auscultatio n bilaterally ABDOMEN: normal bowel sounds, no guarding or rigidity, no hepatosplenomegaly, no masses palpable, soft, nontender, nondistended. NEUROLOGIC: alert and oriented SKIN: nonjaundiced, no spi bettina angiomata. EXTREMITIES: no edema ORAL CAVITY: mucosa moist
--- OUTSIDE RECORDS SUMMARY | 2024-11-20 09:36 | XMS_ITS | Encounter Summary ---
Author Organization [facility] Address [address] [place] [address] Care Team Providers Care Filer Finish Name Role Phone Dinesh Feliz Primary Care Provider [phone] Encounter Details Date Type Department Care Team Description 10/04/[address] [facility] Oncology Services [address] [place] [address] [facility] Social History Tobacco Use Types Packs/Day Years Used Date Smoking Tobacco: Former Cigarettes Q uit: 1979 Smokeless Tobacco: Never Alcohol Use Standard Drinks/Week Comments Yes 0 (1 standard drink = 0.6 oz pur e alcohol) few beers a week Sex and Gender Information Value Date Recorded Sex Assigned at Not on file Gender Identity Not on file Sexual Orientation Not on file Job Start Date Occupation Industry Not on file Not on file Not on file documented as of this encounter Plan of Treatment Not on file documented as of this encounter Visit Diagnoses Not on filedocumented in this encounter Care Teams Filer Finish Relationship Specialty Start Date End Date Dinesh Feliz [address] [facility] [place] [address] PCP - General Family Medicine 09/04/23 documented as of this encounter
--- OUTSIDE RECORDS SUMMARY | 2024-11-20 09:36 | XMS_ITS | Clinical Summary ---
Author Organization [facility] Address [address] [place] [address] Care Team Providers Care Linseed Oil Boiler Name Role Phone Dinesh Feliz Primary Care Provider [phone] Allergies No known active allergies Medications Medication Sig Dispensed Refills Start Date End Date Status ASPIRIN 81 PO Take 81 mg by mouth. 0 04/11/2023 Active acetaminophen (TYLENOL) 325 MG tablet TAKE 3 TABLETS BY MOUTH EVERY 8 HOURS DO NOT EXCEED MORE THAN 4,000 MG IN 24 HOURS 0 08/30/2023 Active amLODIPine (NORVASC) tablet 5 mg Take 1 tablet (5 mg total) by mouth daily. 0 09/09/2023 Active azithromycin (ZITHROMAX) 250 MG tablet TAKE 2 TABLETS BY MOUTH TODAY, THEN TAKE 1 TABLET DAILY FOR 4 DAYS DIRECTED 0 07/24/2023 Active docusate sodium (COLACE) 100 MG capsule Take 1 capsule (100 mg total) by mouth 2 (two) times a day. 0 08/30/2023 Active doxycycline monohydrate (MONODOX) 100 MG capsule TAKE 1 CAPSULE BY MOUTH TWICE A DAY FOR 10 DAYS 0 08/30/2023 Active Repatha SureClick 140 MG/ML injection INJECT 1 ML UNDER THE SKIN EVERY 2 WEEKS 0 08/26/2023 Active ezetimibe (ZETIA) tablet 10 mg TAKE 1 TABLET BY MOUTH DAILY FOR 90 DAYS 0 09/09/2023 Active lisinopril (PRINIVIL,ZESTRIL) tablet 5 mg Take 1 tablet (5 mg total) by mouth daily. 0 09/09/2023 Active mesalamine (DELZICOL) 400 MG CPDR capsule Take 2 capsules (800 mg total) by mouth 2 (two) times a day. 0 07/07/2023 Active omeprazole (PriLOSEC) 20 MG capsule TAKE 1 CAPSULE BY MOUTH EVERY DAY FOR 90 DAYS 0 07/03/2023 Active oxyCODONE (ROXICODONE) 5 MG immediate release tablet Take 1 tablet (5 mg total) by mouth every 4 (four) hours as needed. for pain 0 09/13/2023 Active Rosuvastatin Calcium 40 MG CPSP Take 40 mg by mouth. 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 colon Relation Name Status Comments Paternal Grandfather Social History Tobacco Use Types Packs/Day Years Used Date Smoking Tobacco: Former Cigarettes Q uit: 1978 Smokeless Tobacco: Never Alcohol Use Standard Drinks/Week Comments Yes 0 (1 standard drink = 0.6 oz pur e alcohol) few beers a week Sex and Gender Information Value Date Recorded Sex Assigned at Not on file Gender Identity Not on file Sexual Orientation Not on file Job Start Date Occupation Industry Not on file Not on file Not on file Last Filed Vital Signs Vital Sign Reading Time Taken Comments Blood Pressure 141/55 04/17/2024 9:07 AM EDT Pulse 84 04/17/2024 9:07 AM EDT Temperature 36.4 ??C (97.6 ??F) 04/17/2024 9:07 AM ED T Respiratory Rate - - Oxygen Saturation 100% 04/17/2024 9:07 AM EDT Inhaled Oxygen Concentration - - Weight 79.9 kg (176 lb 3.2 oz) 04/17/2024 9:07 A M EDT Height 165.1 cm (5' 5 ) 04/17/2024 9:07 AM EDT Body Mass Index 29.32 04/17/2024 9:07 AM EDT Plan of Treatment Health Maintenance Due Date Last Done Comments Hepatitis C Screening 1950 COVID-19 Vaccine (#1) 01/07/1957 Pneumococcal Vaccine (1 of 2 - PCV) 01/07/1958 Depression Screening 1964 Preventative Health Evaluation 01/07/1970 DTap / Tdap / Td (1 - Tdap) 01/07/1971 Shingrix-Zoster Vaccine (1 of 2) 01/07/1971 Colon Cancer Screening (Colonoscopy) 01/07/1997 Fall Risk Assessment 01/07/2017 Influenza Vaccine (#1) 2024 RSV Adult > 60+ Yrs or Pregn ant (1 - 1-dose 75+ series) 01/07/2027 Hepatitis B Vaccines Aged Out No long er eligible based on patient's age to complete this topic RSV Ped < 20 months Aged Out No longe r eligible based on patient's age to complete this topic Care Teams Linseed Oil Boiler Relationship Specialty Start Date End Date Dinesh Feliz [address] [place] [address] PCP - General Family Medicine 09/04/23
--- OUTSIDE RECORDS SUMMARY | 2024-11-20 09:36 | XMS_ITS | Encounter Summary ---
[facility] Address [address] [place] [address] Care Team Providers Care Movie Critic Name Role Phone Nery Feliz NP Primary Care Provider Reason for Referral * Imaging (Routine) - Authorized Specialty Diagnoses / Procedures Referred By Contandrew t Referred To Contact Radiology Diagnoses History of lung cancer Procedures CT Chest wo Contrast Billie Amin PA [address] [facility], [address] [address] Phone: tel: fax: [facility] Referral ID Status Reason Start Date Expiration Date V isits Requested Visits Authorized [id number] Authorized 10/29/2024 10/29/2025 1 1 Reason for Visit * Reason Comments Follow-up OFFICE VISIT Encounter Details Date Type Department Care Team ([facility] st Contact Info) Description 10/29/2024 9:45 AM EST Office Visit Thoracic Surgery - [place] [address] [facility] [address] [place] [phone] Billie Amin PA [address] [facility], [address] [address] History of lung cancer (Primary Dx) Social History Tobacco Use Types Packs/Day Years [...] Orientation Straight 09/17/2024 3: 00 PM EST documented as of this encounter Last Filed Vital Signs Vital Sign Reading [...] Mass Index 31.28 10/29/2024 9:37 AM EST documented in this encounter Progress Notes * [facility] - 10/29/2024 9:45 AM EST Images from the original note were not included. Thoracic Surgery Follow Up Visit Patient name: Luis Felipe Jones : 1950 Date of Visit: October 29, 2024 Care Team PCP: NERY FELIZ NP Medical Oncologist: Dr. Gomez Reason for Visit Chief Complaint Patient presents with Follow-up OFFICE VISIT History of Present Illness Mr. Jones is a 74 y.o. male, remote former smoker with a history of prostate cancer, who had a robotic right lower lobectomy on August 27, 2023 for a stage 1b (pT2a, pN0) mucinous adenocarcinoma of pulmonary origin, +KRAS mutation. Patient was seen by Dr. Gomez from medical oncology who did not recommend any adjuvant treatment. Patient presents today after his most recent surveillance chest CTscan. Patient states that he has been doing well. He denies any concerning symptoms including increasing shortness of breath, hemoptysis, unintentional weight loss, or new lumps or bumps concerning for lymphadenopathy. Past Medical History: Diagnosis Date Coronary artery disease DX:Coronary artery disease Hypertension DX:Hypertension Lung cancer (CMS/HCC) DX:Lung cancer (HCC) Primary mucinous adenocarcinoma of lung (CMS/HCC) 06/03/2024 Prostate cancer (CMS/HCC) DX:Prostate cancer (HCC) Patient Active Problem List Diagnosis History of lung cancer Past Surgical History: Procedure Laterality Date CARDIAC VALVE SURGERY PROCEDURE:CARDIAC VALVE SURGERY CORONARY ARTERY BYPASS GRAFT PROCEDURE:CORONARY ARTERY BYPASS GRAFT PROSTATE SURGERY PROCEDURE:PROSTATE SURGERY No Known Allergies Current Outpatient Medications on File Prior to Visit Medication Sig Dispense Refill acetaminophen (TYLENOL) 325 mg tablet TAKE 3 TABLETS BY MOUTH EVERY 8 HOURS DO NOT EXCEED MORE THAN4,000 MG IN 24 HOURS amLODIPine (NORVASC) 5 mg tablet Take 1 tablet (5 mg total) by mouth 1 (one) time each day. aspirin 81 mg EC tablet Take 81 mg by mouth. azithromycin (ZITHROMAX) 250 mg tablet TAKE 2 TABLETS BY MOUTH TODAY, THEN TAKE 1 TABLET DAILY FOR 4 DAYS DIRECTED docusate sodium (COLACE) 100 mg capsule Take 1 capsule (100 mg total) by mouth 2 (two) times a day. doxycycline (MONODOX) 100 mg capsule Take 1 capsule (100 mg total) by mouth 2 (two) times a day. evolocumab (Repatha SureClick) 140 mg/mL pen injector injection ezetimibe (ZETIA) 10 mg tablet Take 1 tablet (10 mg total) by mouth 1 (one) time each day. lisinopriL (PRINIVIL,ZESTRIL) 5 mg tablet Take 1 tablet (5 mg total) by mouth 1 (one) time each day. mesalamine (DELZICOL) 400 mg capsule (with del rel tablets) DR capsule Take 2 capsules (800 mg total) by mouth 2 (two) times a day. omeprazole (PriLOSEC) [address] capsule Take 1 capsule (20 mg total) by mouth 1 (one) time each day. oxyCODONE (ROXICODONE) 5 mg immediate release tablet Take 1 tablet (5 mg total) by mouth every 30 minutes as needed. Max Daily Amount: 30 mg rosuvastatin 40 mg capsule, sprinkle Take 40 mg by mouth. senna (SENOKOT) 8.6 mg tablet TAKE 2 TABLETS BY MOUTH DAILY AT BEDTIME No current facility-administered medications on file prior to visit. Social History Tobacco Use Smoking status: Former Current packs/day: 0.00 Types: Cigarettes Quit date: 09/09/1978 Years since quittin.1 Smokeless tobacco: Never Substance Use Topics Alcohol use: Yes Drug use: Never Social History Social History Narrative Not on file Review of Systems Review of Systems Constitutional: Negative for decreased appetite, fever, night sweats and weight loss. Cardiovascular: Negative for chest pain. Respiratory: Negative for cough, hemoptysis, shortness of breath and sputum production. Hematologic/Lymphatic: Negative for adenopathy. Physical Exam Vitals: 10/29/24 0937 BP: (!) 156/77 Pulse: 82 Temp: 36.6 ??C (97.9 ??F) TempSrc: Temporal Weight: 85.3 kg (188 lb) Height: 1.651 m (65 ) Physical Exam Vitals reviewed. Constitutional: General: He is awake. He is not in acute distress. Appearance: He is well-developed. He is not ill-appearing. HENT: Head: Normocephalic and atraumatic. Mouth/Throat: Mouth: Mucous membranes are moist. Eyes: General: Lids are normal. No scleral icterus. Cardiovascular: Rate and Rhythm: Normal rate and regular rhythm. Pulmonary: Effort: Pulmonary effort is normal. No accessory muscle usage or respiratory distress. Breath sounds: No wheezing, rhonchi or rales. Comments: CTA B Chest: Comments: Multiple right sided chest incisions are well healed without nodularity. Lymphadenopathy: Cervical: No cervical adenopathy. Upper Body: Right upper body: No supraclavicular adenopathy. Left upper body: No supraclavicular adenopathy. Skin: General: Skin is warm and dry. Neurological: Mental Status: He is alert and oriented to person, place, and time. Psychiatric: Mood and Affect: Mood normal. Behavior: Behavior normal. Behavior is cooperative. Radiology I personally viewed the patient's current and past imaging studies, in addition to reviewing the dictated report from the reading radiologist. CT Chest wo Contrast Narrative: PROCEDURE: Chest CT INDICATION: Non-small cell lung cancer, staging TECHNIQUE: Chest CT without contrast. Multi planar reformats were created and interpreted. The examination was performed utilizing dose reduction techniques. Total DLP 697 COMPARISON: 03/18/2024. FINDINGS: LUNGS/PLEURA: Central airways are patent. Right lower lobectomy. Emphysema. Calcified granuloma in the right middle lobe, unchanged. No new or suspicious pulmonary nodules. No pleural effusion or pneumothorax. Chronic right pleural thickening and adjacent scarring, stable compared to prior. MEDIASTINUM: Thyroid gland is normal. No mediastinal or hilar lymphadenopathy. Esophagus is normal.Cardiac chambers are stable in size with old inferior myocardial infarction noted. Prior coronary artery bypass graft. Aortic valve prosthesis. No pericardial effusion. CHEST WALL: No axillary lymphadenopathy or superficial hematoma. UPPER ABDOMEN:Left renal cyst. Hepatic steatosis. BONES: Median sternotomy. No suspicious lytic or blastic lesions. Impression: Stable exam with prior right lower lobectomy. No recurrent or metastatic disease. -------- FINAL REPORT -------- Dictated By: LUIS FELIPE GANNON Dictated Date: 09/24/2024 14:10 ET Assigned Physician: LUIS FELIPE GANNON Reviewed and Electronically Signed By: LUIS FELIPE GANNON Signed Date: 09/24/2024 14:13 ET Workstation ID: [id number] Transcribed By: Self Edit Transcribed Date: 09/24/2024 14:10 ET Assessment and Plan Problem List Items Addressed This Visit History of lung cancer - Primary Mr. 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 No adjuvant treatment was recommended. The patient's most recent surveillance chest CT scan performed in September 2024 shows no new, or worsening, pulmonary nodule or thoracic adenopathy to suggest recurrence or new disease. He does have astable calcified granuloma in the right middle lobe. We will continue with routine chest CT surveillance the next of which will be in 6 months, March 2025. Patient have a follow-up visit in the office after that next scan. Relevant Orders CT Chest wo Contrast AV Alarcon [facility] Thoracic Surgery [address] [place] [address], [address] [place] [phone] * AV Alarcon - 10/28/2024 2:19 PM ESTAssociated Problem(s): History of lung cancer Mr. 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 No adjuvant treatment was recommended. The patient's most recent surveillance chest CT scan performed in September 2024 shows no new, or worsening, pulmonary nodule or thoracic adenopathy to suggest recurrence or new disease. He does have astable calcified granuloma in the right middle lobe. We will continue with routine chest CT surveillance the next of which will be in 6 months, March 2025. Patient have a follow-up visit in the office after that next scan. documented in this encounter Plan of Treatment Upcoming Encounters Date Type Department Care Team (Late st Contact Info) Description 03/31/2025 3:30 PM EDT Appointment [facility] CT Scan [address] [place] [address] 04/16/2025 9:00 AM EDT Office Visit [facility] Hematology Oncology [address] [place] [address] Dustin-Nikki Gomez MD [address] [place] [address] Scheduled Orders Name Type Priority Associated Diagnoses Orde r Schedule CT Chest wo Contrast Imaging Routine History of lung cancer Expected: 03/27/2025, Expires: 10/28/2025 documented as of this encounter Visit Diagnoses Diagnosis History of lung cancer- Primary Personal history of malignant neoplasm of bronchus and lung documented in this encounter Care Teams Movie Critic Relationship Specialty Start Date End Date Nery Feliz NP [address] [place], [place] PCP - General 09/04/23 documented as of this encounter
[2024-11-20 11:57] LABS: Alanine Aminotransferase 24 U/L (0-40); Albumin Level 3.9 g/dL (3.5-5.0); Alkaline Phosphatase 40 U/L (39-117); Aspartate Amino Transferase 34 U/L (5-37); Bilirubin Direct 0.3 mg/dL (0.0-0.5); Bilirubin Total 0.6 mg/dL (0.0-1.0); Total Protein 7.1 g/dL (6.5-8.0)
[2024-11-20 12:13] LABS: Prostate Specific Antigen < 0.10 ng/mL (<0.05-4.0)
== END 2024-11-20 09:04 | disposition home or self-care (01) ==
LOC: HO.WFDLDS 09:03
PROVIDERS: Urology; Visit Provider Nurse Practitioner Family
DX: R74.8 Abnormal levels of other serum enzymes (principal); C61 Malignant neoplasm of prostate; Z12.5 Encounter for screening for malignant neoplasm of prostate
CPT/HCPCS: 36415; 80076; 84153

== ENCOUNTER 2024-12-31 12:55 | Outpatient (AMB) | payer MEDICARE, BC, SELFPAY ==
--- NOTE | 2024-12-31 13:02 | A.OFFPC_ITS ---
Vital Signs 12/31/24 13:03 Height 5 ft 5 in Weight 193 lb 6 oz BMI 32.2 BP 140/80 H Blood Pressure Location Lt brachial Position Sitting Pulse 84 Pulse Source Pulse Oximeter Pulse Oximetry (%) 97 Oxygen Delivery Method Room Air Intake Visit Reasons: 6m follow up Allergies No Known Allergies [No Known Allergies*] Allergy (Verified 12/31/24 13:11) Tobacco use date assessed: 12/31/24 Fall risk assessment: No Falls in past year Last assessed Fall Risk: 12/31/24 Dental Screening Dental Screen Date: 12/31/24 Did you have a dental visit in the last 12 months?: Yes Did you have a dental problem in the last 6 months where you did not have access to dental care?: No Was dental information given to patient?: Patient has dentist HPI 6m follow up HPI Details Chief Complaint Patient presents for a routine six-month follow-up without any new complaints. History of Present Illness The patient is a 74-year-old male presenting for a routine six-month follow-up. The patient has a history of a surgical procedure in 2019 for prostate malignancy, during which a prostatectomy was performed. Since the surgery, PSA levels have been regularly monitored, consistently registering below 0.10 ng/mL, suggesting a favorable clinical status. He historically follows up with thoracic surgery to monitor previous concerns linked to a long-standing neoplasm, for which ongoing low-dose CT scans are a part of his health management strategy. He maintains active communication with cardiology concerning a systolic murmur noticed during prior routine examinations, although he denies experiencing any related symptoms such as dizziness or blurred vision, alongside a clear denial of abdominal disturbances including pain, constipation, diarrhea, or blood in stools. The patient reports he is generally doing well and maintains engagement with his healthcare management plan. Social History - No social determinants of health were discussed during the conversation. Health Maintenance - Monitoring of PSA levels with the most recent result under 0.10 ng/mL - Follow-up with thoracic surgery for lo w-dose CT related to previous neoplasm - Regular cardiology review for systolic murmur Review of Systems - Cardiovascular: Denies chest pain, la nena rtness of breath, dizziness, carotid bruits - Gastrointestinal: Denies abdominal merced n, constipation, diarrhea, blood in stools - Vision: Denies blurred vision - Psychiatric: Denies suicidal and homic idal ideations Physical Exam General: Cooperative, healthy appearing, comfortable, no acute distress and well developed Orientation: Patient oriented x3 Limitations: No limitations Head: Normal to inspection Ears: Hearing grossly normal bilaterally Nose: Normal external nose present Face and sinus: Normal facial exam Eyes: Appearance normal, both eyes and all related structures Neck: Normal visual inspection and Yes full ROM Respiratory: Normal respiratory effort and able to speak in complete sentences. Clear to auscultation bilaterally Cardiovascular: Regular rate and rhythm. Normal S1 and S2. Systolic murmur noted GI: Normal to inspection. Soft to palpation and nontender Skin: No rashes or lesions noted Neuro: Patient oriented x3 Extremities: Normal to inspection Results - Labs: PSA level below 0.10 ng/mL, very low, favorable outcomes - Tests: Low-dose CT scans as a follow-u p for historical neoplasm Plan I will take responsibility for future PSA tracking, maintaining the favorable outcome of low levels post-prostatectomy. Cardiology follow-up is to persist to observe the systolic murmur, though its asymptomatic nature suggests no present urgency for intervention. Continued thoracic surveillance via low-dose CT scans will monitor for any recurrence linked to his previous neoplasm removal, aligning closely with his oncological history. Discussion Notes During the discussion, the patient was informed about the ongoing plan for PSA monitoring given his history of prostatectomy and the expectations as his previous urologist retires. I outlined the health maintenance strategy, emphas izing the continuation of cardiology oversight for the systolic murmur and regular thoracic evaluations in the wake of his neoplasm history. The patient was reassured regarding the favorable PSA results, which remain appreciably low, and the importance of ongoing vigilance was reiterated. Consent for ongoing management and monitoring strategies was obtained, with acknowledgment of how these tailored follow-up procedures contribute to overall wellness management being communicated clearly. Patient Instructions - Continue regular follow-ups with [facility]. - Attend scheduled low-dose CT scans wit h thoracic surgery. - Maintain a schedule for regular PSA te sting. - Report any new symptoms such as chest pain or abdominal changes immediately. - Follow recommended monitoring timeline s discussed. [facility] Medical History Aortic stenosis CAD (coronary artery disease) Erectile dysfunction Ulcerative colitis Duodenal bulb ulcer Dyslipidemia HTN (hypertension) Surgical History S/P TAVR (transcatheter aortic valve replacement) H/O radical prostatectomy History of eye surgery History of discectomy History of bunionectomy History of heart bypass surgery Family History Father No problems noted. Mother Smoker Emphysema, unspecified Maternal Grandfather No problems noted. Maternal Grandmother Stroke Diabetes mellitus Amputation of leg Paternal Grandfather Cancer Paternal Grandmother No problems noted. Other Substance use disorder Social History Housing: House Alcohol intake: current Patient Tobacco Use Status: Former Tobacco user e-Cigarette/Vaping Use: Never Used Second Hand Smoke Exposure: No service: No Current occupational status: retired Cognitive needs: No Hearing needs: No Vision needs: No Questionnaire PHQ-9 Over the last 2 weeks, how often have you been bothered by any of the following problems? 1. Little interest or pleasure in doing things: not at all 2. Feeling down, depressed, or hopeless: not at all 3. Trouble falling or staying asleep, or sleeping too much: not at all 4. Feeling tired or having little energy: not at all 5. Poor appetite or overeating: not at all 6. Feeling bad about yourself - or that you are a failure or have let yourself or your family down: not at all 7. Trouble concentrating on things, such as reading the newspaper or watching television: not at all 8. Moving or speaking so slowly that other people could have noticed. Or the opposite - being so fidgety or restless that you have been moving around a lot more than usual: not at all 9. Thoughts that you would be better off or of hurting yourself in some way: not at all Total score: 0 Source: Developed by Drs. Aston Keen, Stephanie Yuan, Tahir Chandra and colleagues, with an educational claritza from [employer]. Thrive Questionnaire Date Thrive assessed: 12/31/24 I am a: Patient What is your living situation today?: I have a steady place to live Within the past 12 months, did the food you bought not last and you didn't have the money to get more?: Never true Within the past 12 months, did you worry whether your food would run out before you got money to buy more?: Never true Do you have trouble paying for medicines?: No Do you have trouble getting transportation to medical appointments?: No Do you have trouble paying your heating and electricity bill?: No Do you have trouble taking care of your child, family member or friend?: No Do you have trouble with day-to-day activities such as bathing, preparing meals, shopping, managing finances, etc.?: No Are you currently unemployed and looking for a job?: No Are you interested in more education?: No Please select the resources that you would like help with: None Currently or been in a relationship where the following occur: No concerns reported THRIVE Score: 0 AUDIT C Alcohol Use Questionnaire (AUDIT-C) 1. How often do you have a drink containing alcohol?: 2-3 times a week 2. How many drinks containing alcohol do you have on a typical day when you are drinking?: 3 or 4 3. How often do you have six or more drinks on one occasion?: Monthly Total Score: 6 Score Reviewed/Action Taken: Yes NISA-7 AMB Questionnaire NISA-7 Date NISA - 7 assessed: 12/31/24 Feeling nervous, anxious, or on edge: 0 = Not at all Not being able to stop or control worryin = Not at all Worrying too much about different things: 0 = Not at all Trouble relaxin = Not at all Being so restless that it is hard to sit still: 0 = Not at all Becoming easily annoyed or irritable: 0 = Not at all Feeling afraid as if something awful might happen: 0 = Not at all Total NISA-7 score (0-4 normal; 5-9 mild; 10-14 moderate; 15-21 severe): 0 Source: Developed by Drs. Aston Keen, Stephanie Yuan, Tahir Chandra and colleagues, with an educational claritza from [employer]. NISA-7 Assessment Billing NISA-7 Assessment Tool: NISA-7 Assessment 44884 Physical exam (Primary Care) Vital Signs: Last Vital Signs Pulse 84 12/31/24 13:03 BP 140/80 H 12/31/24 13:03 Pulse Ox 97 12/31/24 13:03 Oxygen Delivery Method Room Air 12/31/24 13:03 BMI result Body Mass Index 32.2 Tobacco/Smoking Status: Tobacco use Status Tobacco use date assessed 12/31/24 12/31/24 13:12 Patient Tobacco Use Status Former Tobacco user 12/31/24 13:03 e-Cigarette/Vaping Use Never Used 12/31/24 13:03 PHQ-9: PHQ-9 Score PHQ-9: Total score 0 12/31/24 13:03 Thrive Assessment: Date of Thrive Assessment Date Thrive assessed 12/31/24 12/31/24 13:12 Currently or been in a relationship where the following occur: No concerns reported Coding Level of Care Code Est Pt Level 3 (54925) Diagnoses Hypertension, unspecified type I10 Hypertension type: unspecified Dyslipidemia E78.5 Additional Codes NISA-7 Assessment Billing - NISA-7 Assessment Tool: NISA-7 Assessment 75746 ([id number]) Assessment & Plan Assessment & Plan (1) HTN (hypertension): Comment: Controlled Code(s): I10 - Essential (primary) hypertension Category: Medical Qualifiers: Hypertension type: unspecified Qualified Code(s): I10 - Essential (primary) hypertension (2) Dyslipidemia: Code(s): E78.5 - Hyperlipidemia, unspecified Category: Medical Plan on repatha Orders: Orders Complete Blood Count Auto Diff Today E78.5 - Hyperlipidemia, unspecified, I10 - Essential (primary) hypertension TSH reflex Free T4 Today E78.5 - Hyperlipidemia, unspecified, I10 - Essential (primary) hypertension Comprehensive [place]. Panel Fast Today E78.5 - Hyperlipidemia, unspecified, I10 - Essential (primary) hypertension UA CC w/rflx Micro + Cult Today E78.5 - Hyperlipidemia, unspecified, I10 - Essential (primary) hypertension Lipid Panel Today E78.5 - Hyperlipidemia, unspecified, I10 - Essential (primary) hypertension
[2024-12-31 13:03] VITALS: BP 140/80; PULSE 84; O2SAT 97; BMI 32.2
--- OUTSIDE RECORDS SUMMARY | 2024-12-31 15:13 | XMS_ITS | Clinical Summary ---
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, CMS/HCC V28) 06/03/2024 10/14/2024 Encounters Date Type Department Care Team Description 10/29/2024 9:45 AM EST Office Visit Thoracic Surgery - [address] [place] [address] Billie Amin PA History of lung cancer (Primary Dx) from Last 3 Months Surgical History Surgery Date Site/Laterality Comments CARDIAC VALVE SURGERY PROCEDURE:CARDIAC VALVE SURGERY PROSTATE SURGERY PROCEDURE:PROSTATE SURGERY CORONARY ARTERY BYPASS GRAFT PROCEDURE:CORONARY ARTERY BYPASS GRAFT Medical History Medical History Date Comments Prostate cancer ([facility] V24, [facility] V28) DX:Prostate cancer (HCC) Coronary artery disease DX:Coron chaay artery disease Lung cancer ([facility] V24, [facility] V28) DX:Lung cancer (HCC) Hypertension DX:Hypertension 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[facility] V24, [facility] V28) 06/03/2024 Family History Medical History Relation Name [...] Info) Description 03/31/2025 3:30 PM EDT Appointment [facility] CT Scan [address] [place] [id number] 04/08/2025 10:15 AM EDT Office Visit Thoracic Surgery - [place] [address] [address] [place] [address] Billie Amin PA [address] [facility], [address] [place] [address] 04/16/2025 9:00 AM EDT Office Visit [facility] Hematology Oncology [address] [place] [address] Nikki Dallas MD [address] [place] [address] Health Maintenance Due Date Last Done Comments COVID-19 Vaccine (#1) 01/07/1955 Pneumococcal Vaccine: 50+ Years (2 of 2 - PCV) 11/30/2019 11/29/2018 Abdominal Aortic Aneurysm (AAA) Screen 10/08/2023 Cholesterol Screening (Lipid Panel) 10/08/2023 Colorectal Cancer Screening: Colonoscopy 10/08/2023 Depression Screening 10/08/2023 Falls Risk Assessment 10/08/2023 Hepatitis C Screening 10/08/2023 Medicare Annual Wellness Visit 10/08/2023 Social Influencers of Health Screening 10/08/2023 Hypertension/CHF/CAD Annual BMP Blood Test 06/21/2024 Influenza Vaccine (Season Ended) 2025 05/08/2018, 10/18/2017 DTaP,Tdap,and Td Vaccines (3 - Td or Tdap) 11/26/2026 11/26/2016, 11/07/2016 RSV Immunization Adult Patients (1 - 1-dose 75+ series) 01/07/2027 Zoster [...] age to complete this topic Meningococcal B Vaccine Aged Out No l onger eligible based on patient's age to complete this topic RSV Immunization Patients Under 20 months Aged Out No longer eligible b ased on patient's age to complete this topic Varicella Vaccines Aged Out No longer eligible based on patient's age to complete this topic Insurance MEDICARE [facility] Care Teams Obgyn Hospitalist Physician Relationship Specialty Start Date End Date Dinesh Feliz NP [address] [facility] [address] [place] PCP - General 09/04/23
--- OUTSIDE RECORDS SUMMARY | 2024-12-31 15:13 | XMS_ITS | Encounter Summary ---
Author Organization [facility] Address [address] [place] [address] Care Team Providers Care Heater Worker Name Role Phone Dinesh Feliz Primary Care Provider [phone] Encounter Details Date Type Department Care Team Description 10/04/2023 Social Work [facility] Oncology Services [address] [place] [address] [facility] History Tobacco Use Types Packs/Day [...] on filedocumented in this encounter Care Teams Heater Worker Relationship Specialty Start Date End Date Dinesh Feliz [address] [facility] [place] [address] PCP - General Family Medicine 09/04/23 documented as of this encounter
--- OUTSIDE RECORDS SUMMARY | 2024-12-31 15:13 | XMS_ITS | Clinical Summary ---
Author Organization [facility] Address [address] [place] [address] Care Team Providers Care School Bus Driver/Teacher Assistant Name Role Phone Dinesh Feliz Primary Care Provider [phone] Allergies No known active allergies Medications Medication [...] age to complete this topic Care Teams School Bus Driver/Teacher Assistant Relationship Specialty Start Date End Date Dinesh Feliz [address] [place] [address] PCP - General Family Medicine 09/04/23
== END 2024-12-31 13:57 | disposition home or self-care (01) ==
LOC: HO.HMCC 12:56
PROVIDERS: PCP Nurse Practitioner Family; Visit Provider Nurse Practitioner Family
DX: I10 Essential (primary) hypertension (principal); E78.5 Hyperlipidemia, unspecified

== ENCOUNTER → 2024-12-31 12:55 | Outpatient (BNVA) | payer MEDICARE, BC, SELFPAY | PROVIDERS: PCP Nurse Practitioner Family; Visit Provider Nurse Practitioner Family | DX: I10 Essential (primary) hypertension (principal); E78.5 Hyperlipidemia, unspecified | CPT/HCPCS: 96127; 99212 ==

== ENCOUNTER → 2025-05-28 13:00 | Outpatient (REF) | payer MEDICARE, BC, SELFPAY ==
--- NOTE | 2025-05-28 13:02 | CA_ITS ---
Transthoracic Echocardiogram Patient (Last, First, Middle): Jose Jones A Gender: M Date of : 1950 Age: 75 Procedure Date: 05/28/2025 Procedure Type: Transthoracic Echocardiogram Location: OP Height: 165.1 cm Weight: 82.56 kg BSA: 1.90 m2 Heart Rate: bpm BP: 178 / 82 mmHg Professional Sports Scout: TO Referring MD: Kevyn Chapa MD Symptoms: Z95.2 - Presence of prosthetic heart valve Study Quality: Fair/Contrast Conclusions: - The left ventricular systolic function is mild to moderately decreased. The calculated ejection fraction is 40% by biplane method. - There is moderate septal asymmetric hypertrophy. - The basal inferior segment is akinetic. - A bioprosthetic aortic valve is present. The prosthetic aortic valve appears to be functioning normally. Findings Procedure Information Contrast agent, definity, is being given per protocol without apparent complications. Left Ventricle Normal left ventricular cavity size. The left ventricular systolic function is mild to moderately decreased. The calculated ejection fraction is 40% by biplane method. There is evidence of regional wall motion abnormalities. Evidence suggests grade I (mild) diastolic dysfunction. There is moderate septal asymmetric hypertrophy. Wall Motion Rest Echo Findings The basal inferior segment is akinetic. Right Ventricle Normal right ventricular cavity size. There is mildly decreased right ventricular systolic function. Atria The left atrium is moderately dilated. The right atrium is normal in size. Aortic Valve A bioprosthetic aortic valve is present. The prosthetic aortic valve appears to be functioning normally. There is trace (trivial) aortic valve regurgitation. Mitral Valve The mitral valve appears normal. There is mild mitral valve regurgitation. There is no mitral valve stenosis. Pulmonic Valve The pulmonic valve is likely normal. Tricuspid Valve There is trace tricuspid valve regurgitation. There is no evidence of pulmonary hypertension. Great Vessels The asc aorta is normal in size. Venous The inferior vena cava was not well visualized. Pericardium/Pleural There is no evidence of pericardial effusion. Prior Study Comparison Changes noted compared to prior study dated: 05/13/2024. LVEF is lower. Measurements 2D Linear Measurements IVSd: 1.27 0.6-0.9/0.6-1.0 cm LVIDd: 4.18 3.9-5.3/4.2-5.9 cm LVIDd Index: 2.20 2.4-3.2/2.2-3.1 cm/m2 LVIDs: 3.32 2.0-3.6 cm LVPWd: 0.96 0.7-1.1 cm LV Mass: 197.44 67-162/88-224 g LV Mass Index: 103.92 43-95/49-115 g/m2 LVOT Diam: 2.10 3.0+(-)1.3 cm 2D Systolic Function EF 4C: 36.30 >55% EF 2C: 44.00 >55% EF BiP: 39.70 >55% Mitral Valve MV Pk E: 0.65 MV PK A: 1.10 MV Decel Time: 194.00 E/A: 0.60 E'Lateral: 6.64 E'Medial: 5.33 E/E' Med: 12.10 E/E' Lat: 9.70 PHT: 57.00 MVA PHT: 3.86 Decel Hayes: 3.34 Aortic Valve AoV Pk John: 2.39 AoV Mn John: 1.82 AoV VTI: 0.52 AoV Pk Grad: 23.00 Aov Mn Grad: 15.00 SALINAS Cont.VTI: 1.52 LVOT LVOT Pk John: 1.09 LVOT Mn John: 0.75 LVOT VTI: 0.23 LVOT Pk Grad: 5.00 LVOT Mn Grad: 3.00 LVOT Diam: 2.10 LVOT Area: 3.46 Diastolic Function MV Pk E: 0.65 MV Pk A: 1.10 E/A: 0.60 E'Medial: 5.33 E/E' Med: 12.10 E' Laterial: 6.64 E/E' Lat: 9.70 Right Ventricle TAPSE (mm): 14.30 TVS' John: 8.33 Great Vessels Aorta Ao Asc: 3.50 2.1-3.4 cm Updated in Other Vendor System with Status of Final Zeb Zepeda MD electronically signed on 05/30/2025 1:06:01 PM with status of Final
--- OUTSIDE RECORDS SUMMARY | 2025-05-28 13:02 | XMS_ITS | Clinical Summary ---
Author Organization [facility] Address [address] [place] [address] Phone Care Team Providers Care Manager Life Sciences Name Role Phone Dinesh Feliz NP Primary Care Provider [phone] Allergies No known active allergies Medications aspirin 81 mg EC tablet Take 81 mg by mouth. 04/11/2023 Active amLODIPine (NORVASC) 5 mg tablet Take 1 tablet (5 mg total) by mouth 1 (one) time each day. 09/09/2023 Active ezetimibe (ZETIA) 10 mg tablet Take [...] 1 (one) time each day. 07/03/2023 Active rosuvastatin 40 mg capsule, sprinkle Take 40 mg by mouth. 11/15/2021 Active evolocumab (Repatha SureClick) 140 mg/mL pen injector injection Active Active Problems Problem Noted Date Diagnosed Date Adenocarcinoma of right lung , stage 1 (CMS/HCC V24, CMS/HCC V28) 05/21/2025 History of prostate cancer 05/21/2025 History of lung cancer 10/14/2024 Assessment & Plan (04/07/2025 4:52 PM EDT): Mr. 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 No adjuvant treatment was recommended. The patient's most recent surveillance chest CT scan done March 2025 shows no new or worsening pulmonary nodule or thoracic adenopathy to suggest recurrence, or new disease. He does have several stable subcentimeter pulmonary nodules including a 5 mm noncalcified nodule in the left lower lobe and a 7 mm nodule with a coarse rim calcification in the right middle lobe. We will continue with routine chest CT surveillance the next of which will be in 6 months, September 2025. Patient have a follow-up visit in the office after that next scan. Assessment & Plan (10/28/2024 2:19 PM EST): Mr. Garnica is a 74-year-old male who had a [...] Encounters Date Type Department Care Team Description 05/21/2025 11:30 AM EDT Office Visit [facility] Hematology Oncology [address] [place] [phone] Nikki Atkinson MD Adenocarcinoma of right lung, stage 1 (CMS/HCC V24, CMS/HCC V28) (Primary Dx); History of lung cancer; History of prostate cancer 04/08/2025 10:15 AM EDT Office Visit Thoracic Surgery - [place] [address] [facility] [address] [place] [phone] Billie Amin PA History of lung cancer 03/31/2025 3:14 PM EDT - 03/31/2025 11:59 PM EDT Hospital Encounter [facility] CT Scan [address] [place] [address] History of lung cancer Discharge Disposition: Home or Self Care from Last 3 Months Surgical History Surgery Date Site/Laterality Comments CARDIAC VALVE SURGERY PROCEDURE:CARDIAC VALVE SURGERY PROSTATE SURGERY PROCEDURE:PROSTATE SURGERY CORONARY ARTERY BYPASS GRAFT PROCEDURE:CORONARY ARTERY BYPASS GRAFT OTHER SURGICAL HISTORY 08/27/2023 Right RLL Lobectomy Medical History Medical History Date Comments Prostate cancer ([facility] V24, [facility] V28) DX:Prostate cancer (HCC) Coronary artery disease DX:Coron chaya artery disease Lung cancer ([facility] V24, [facility] V28) DX:Lung cancer (HCC) RLL Hypertension DX:Hypertension 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[facility] V24, [facility] V28) 06/03/2024 Family History Medical History Relation [...] Sign Reading Time Taken Comments Blood Pressure 165/76 05/21/2025 11:36 AM EDT Pulse 86 05/21/2025 11:36 AM EDT Temperature 36.7 C (98.1 F) 05/21/2025 11:36 AM EDT Respiratory Rate 14 04/08/2025 10:13 AM EDT Oxygen Saturation 100% 05/21/2025 11:36 AM EDT Inhaled Oxygen Concentration - - Weight 82.6 kg (182 lb) 05/21/2025 11:36 AM EDT Height 165.1 cm (5' 5 ) 04/08/2025 10:13 AM EDT Body Mass Index 30.29 04/08/2025 10:13 AM EDT Plan of Treatment Upcoming Encounters Date Type Department Care Team (Late st Contact Info) Description 05/25/2026 10:30 AM EDT Office Visit [facility] Hematology Oncology [address] [place] [address] Dustin-Nikki Gomez MD [address] [place] [address] Health Maintenance Due Date Last Done Comments COVID-19 Vaccine (#1) 01/07/1955 Pneumococcal Vaccine: 50+ Years (2 of 2 - PCV) 11/30/2019 11/29/2018 Abdominal Aortic Aneurysm (AAA) Screen 10/08/2023 Cholesterol Screening (Lipid Panel) 10/08/2023 Colorectal Cancer Screening: Colonoscopy 10/08/2023 Falls Risk Assessment 10/08/2023 Hepatitis C Screening 10/08/2023 Medicare Annual Wellness Visit 10/08/2023 Social Influencers of Health Screening 10/08/2023 Hypertension/CHF/CAD Annual BMP Blood Test 06/21/2024 Depression Screening 09/09/2024 Influenza Vaccine (#1) 2025 8, 10/18/2017 DTaP,Tdap,and Td Vaccines (3 - Td [...] Diagnosis Comments CT CHEST WO CONTRAST Routine 03/31/2025 5:32 PM EDT History of lung cancer from Last 3 Months Results * CT Chest wo Contrast (03/31/2025 5:32 PM EDT) Anatomical Region Laterality Modality Body Computed Tomogra phy 04/05/2025 8:38 AM EDT Impressions 04/05/2025 8:50 AM EDT Impression: 1. Stable right lower lobectomy sequela. 2. No suspicious developing pulmonary nodule or thoracic lymphadenopathy. [place] ([id number]) -------- FINAL REPORT -------- Dictated By: Elizabet Gross Dictated Date: 04/05/2025 08:38 ET Assigned Physician: Elizabet Gross Reviewed and Electronically Signed By: Elizabet Gross Signed Date: 04/05/2025 08:50 ET Workstation ID: [id number] Transcribed By: Self Edit Transcribed Date: 04/05/2025 08:38 ET Narrative 04/05/2025 8:50 AM EDT History: Lung carcinoma, status post right lower lobectomy 08/27/23. Surveillance imaging. Comparison: 09/18/24 ([facility]), 06/12/23 [place], [place] Technique: Helical volumetric imaging of the thorax was performed without IV contrast. DLP: 346.02 mGy/cm [employer] Iterative reconstruction technique Findings: Right lower lobectomy sequela are again demonstrated. The trachea and remaining central bronchial tree are patent. Patchy emphysema is again noted. Chronic pleural-parenchymal thickening at the posterior base of the right hemithorax is without significant change, likely surgical scar. A 5 mm solid, noncalcified nodule is unchanged in the left lower lobe (image 169 series 3) dating back to the initial, 06/12/[address] A 7 mm nodule containing a coarse rim calcification remains stable in the right middle lobe (image 147). No suspicious developing pulmonary nodule is seen. No pleural or pericardial effusions are seen. The heart remains normal in size. Median sternotomy sutures, mediastinal surgical clips, and aortic valvuloplasty sequela are again noted. No developing thoracic lymphadenopathy is seen. The thyroid gland is normal in size and without suspicious nodule. A small portion of the upper abdomen included on the lowest images through the thorax is without significant abnormality. No significant osseous abnormality is seen. Procedure Note Elizabet Gross MD - 04/05/2025 History: Lung carcinoma, status post right lower lobectomy 08/27/23.Surveillance imaging. Comparison: 09/18/24 ([facility]), 06/12/23 [place], [place] Technique: Helical volumetric imaging of the thorax was performed withoutIV contrast. DLP: 346.02 mGy/cm [employer] Iterative reconstruction technique Findings: Right lower lobectomy sequela are again demonstrated. The trachea andremaining central bronchial tree are patent. Patchy emphysema is againnoted. Chronic pleural-parenchymal thickening at the posterior base of theright hemithorax is without significant change, likely surgical scar. A 5 mm solid, noncalcified nodule is unchanged in the left lower lobe(image 169 series 3) dating back to the initial, 06/12/[address] A 7mm nodule containing a coarse rim calcification remains stable in theright middle lobe (image 147). No suspicious developing pulmonary noduleis seen. No pleural or pericardial effusions are seen. The heart remains normal in size. Median sternotomy sutures, mediastinalsurgical clips, and aortic valvuloplasty sequela are again noted. Nodeveloping thoracic lymphadenopathy is seen. The thyroid gland is normal in size and without suspicious nodule. A small portion of the upper abdomen included on the lowest images throughthe thorax is without significant abnormality. No significant osseous abnormality is seen. IMPRESSION: Impression: 1. Stable right lower lobectomy sequela. 2. No suspicious developing pulmonary nodule or thoraciclymphadenopathy. [employer] [place] ([id number]) -------- FINAL REPORT -------- Dictated By: Elizabet Gross Dictated Date: 04/05/2025 08:38 ET Assigned Physician: Elizabet Gross Reviewed and Electronically Signed By: Elizabet Gross Signed Date: 04/05/2025 08:50 ET Workstation ID: [id number] Transcribed By: Self Edit Transcribed Date: 04/05/2025 08:38 ET Billie LEY IMG CT PROCEDURES Final Resul t from Last 3 Months Insurance MEDICARE [facility] Care Teams Manager Life Sciences Relationship Specialty Start Date End Date Dinesh Feliz NP [address] [facility] TAMIA Ellis PCP - General 09/04/23
--- OUTSIDE RECORDS SUMMARY | 2025-05-28 13:02 | XMS_ITS | Encounter Summary ---
Author Organization [facility] Address [address] [facility] [address] [place] [phone] Phone Care Team Providers Care Creping Machine Operator Helper Name Role Phone Dinesh Feliz HAIRSPRING ADJUSTER Primary Care Provider + Reason for Referral * MRI/CAT Scan - Closed Specialty Diagnoses / Procedures Referred By Contac t Referred To Contact Procedures MRI Pelvis (Soft Tissue) Outside (No Interpretation) System, Provider Not In, PhD [facility] [address] [place] [address] Referral ID Status Reason Start Date Expiration Date Visits Re quested Visits Authorized [id number] Closed 04/16/2019 04/15/2020 1 1 Encounter Details Date Type Department Care Team (Late st Contact Info) Description 04/16/2019 Ancillary Orders [facility],Outside Imaging [address] [place] [address] System, Provider Not In, PhD [facility] [address] [place] [address] Social History Tobacco Use Types Packs/Day Years Used Date Smoking Tobacco: Former Smokeless Tobacco: Never Sex and Gender Information Value Date Recorded Sex Assigned at Not on file Legal Sex Male 11:50 AM EDT Gender Identity Not on file Sexual Orientation Not on file documented as of this encounter Plan of Treatment Not on file documented as of this encounter Results * MRI Pelvis (Soft Tissue) Outside (No Interpretation) (04/08/2019 12:00 AM EDT) Narrative SYSTEMGENERATED, DOCUMENTATION - 04/16/2019 10:53 AM EDT This study is for PACS storage only and not for interpretation. us Provider Not In System PhD IMG OUTSIDE IMAGING W /OUT INTERPRETATION Final Result documented in this encounter Visit Diagnoses Not on filedocumented in this encounter Care Teams Creping Machine Operator Helper Relationship Specialty Start Date End Date Dinesh Feliz NP [facility] [place] [address] PCP - General Family Medicine 04/01/19 documented as of this encounter Additional Source Comments The information contained in this document represents components of the legal health record. It is not the complete legal health record.[facility]
--- OUTSIDE RECORDS SUMMARY | 2025-05-28 13:02 | XMS_ITS | Encounter Summary ---
Author Organization [facility] Address [address] [place] [phone] Phone Care Team Providers Care Item Repair Manager Name Role Phone Dinesh Feliz HORTICULTURE SUPERVISOR Primary Care Provider + Encounter Details Date Type Department Care Team (Late st Contact Info) Description 04/16/2019 Procedure Pass [facility],Outside Imaging [address] [place] [address] Social History Tobacco Use Types Packs/Day Years [...] on filedocumented in this encounter Care Teams Item Repair Manager Relationship Specialty Start Date End Date Dinesh Feliz NP [facility] [place] [address] PCP - General Family Medicine 04/01/19 documented as of this encounter Additional Source Comments The information contained in this document represents components of the legal health record. It is not the complete legal health record.[facility]
--- OUTSIDE RECORDS SUMMARY | 2025-05-28 13:03 | XMS_ITS | Encounter Summary ---
Author Organization [facility] Address [address] [place] [phone] Phone Care Team Providers Care Telephone Service Adviser Name Role Phone Dinesh Feliz HUNTING AND FISHING GUIDE Primary Care Provider + Encounter Details Date Type Department Care Team (Late st Contact Info) Description 04/01/2019 Procedure Pass [facility] [address] [place] [address] Social History Tobacco Use Types Packs/Day Years [...] on filedocumented in this encounter Care Teams Telephone Service Adviser Relationship Specialty Start Date End Date Dinesh Feliz NP [facility] [place] [address] PCP - General Family Medicine 04/01/19 documented as of this encounter Additional Source Comments The information contained in this document represents components of the legal health record. It is not the complete legal health record.[facility]
--- OUTSIDE RECORDS SUMMARY | 2025-05-28 13:03 | XMS_ITS | Clinical Summary ---
Author Organization [facility] Address [address] [place] [address] Care Team Providers Care Ammonia Still Operator Name Role Phone Dinesh Feliz Primary Care Provider [phone] Allergies No known active allergies Medications Medication [...] 84 04/17/2024 9:07 AM EDT Temperature 36.4 C (97.6 F) 04/17/2024 9:07 AM EDT Respiratory Rate - - Oxygen Saturation 100% [...] Fall Risk Assessment 01/07/2017 Influenza Vaccine (#1) 2025 RSV Adult > 60+ Yrs or Pregn ant (1 - 1-dose 75+ series) 01/07/2027 Hepatitis B Vaccines Aged Out No long er eligible based on patient's age to complete this topic RSV Ped < 20 months Aged Out No longe r eligible based on patient's age to complete this topic Care Teams Ammonia Still Operator Relationship Specialty Start Date End Date Dinesh Feliz [address] [facility] [place] [address] PCP - General Family Medicine 09/04/23
--- OUTSIDE RECORDS SUMMARY | 2025-05-28 13:03 | XMS_ITS | Clinical Summary ---
Author Organization [facility] Address [address] [facility] [address] [place] [address] Phone Care Team Providers Care Injection Molding Machine Tender Name Role Phone Dinesh Feliz EVENT OPERATIONS MANAGER Primary Care Provider + Medications sulfaSALAzine (AZULFIDINE) 500 mg tabletIndicatio ns:ulcerative colitis remission Take 1,000 mg by mouth 2 (two) times a day. Indications: ulcerative colitis currently without symptoms Active omeprazole (PRILOSEC) 20 MG capsule Take 20 mg by mouth daily. Active ezetimibe (ZETIA) 10 mg tablet Take by mouth daily. Active lisinopril (PRINIVIL,ZESTR IL) 5 MG tablet Take 5 mg by mouth daily. Active bwvwldtl-gqt-vv rrous gluconate (CENTRUM WITH IRON) 9 mg iron/15 mL Liqd Take 15 mL by mouth daily. Active multivitamins with minerals- folic acid-lycopene (MEN'S ONE-A-DAY) 400-20-300 mcg Tab Take 1 tablet by mouth daily. Active metoprolol tartrate (LOPRESSOR) 50 MG tablet Take 50 mg by mouth daily. Active aspirin 81 MG EC tablet Take 81 mg by mouth daily. Active folic acid (FOLVITE) 1 MG tablet Take 1 mg by mouth daily. Active rosuvastatin (CRESTOR) 40 MG tablet Take 40 mg by mouth daily. Active tamsulosin (FLOMAX) 0.4 mg Cap Take 0.4 mg by mouth daily. Active sildenafil (VIAGRA) 100 mg tablet Take 100 mg by mouth daily as needed for erectile dysfunction. Active Family History Medical History Relation Comments Cancer Paternal Grandfather Relation Status Comments Paternal Grandfather Alive Social History Tobacco Use Types Packs/Day Years Used Date Smoking Tobacco: Former Smokeless Tobacco: Never Education Answer Date Recorded Are you interested in more education? Not on millicent e 01/04/2023 Are you concerned about learning? Not on file 01/04/2023 No 01/04/2023 No 01/04/2023 Digital Access Answer Date Recorded No 02/02/2023 No 02/02/2023 No 02/02/2023 Reliable internet access at home? Not on file 02/02/2023 Device with a working camera? Not on file Sex and Gender Information Value Date Recorded Sex Assigned at Not on file Legal Sex Male 11:50 AM EDT Gender Identity Not on file Sexual Orientation Not on file Last Filed Vital Signs Vital Sign Reading Time Taken Comments Blood Pressure 134/79 04/01/2019 2:20 PM EDT Pulse 76 04/01/2019 2:20 PM EDT Temperature 37.1 C (98.8 F) 04/01/2019 2:20 PM EDT Respiratory Rate 17 04/01/2019 2:20 PM EDT Oxygen Saturation 95% 04/01/2019 2:20 PM EDT Inhaled Oxygen Concentration - - Weight 89.2 kg (196 lb 11.2 oz) 04/01/2019 2:20 PM EDT Height - - Body Mass Index - - Plan of Treatment Health Maintenance Due Date Last Done Comments LIPID PANEL 1950 POTASSIUM LEVEL 1950 DEPRESSION SCREENING 1964 SMOKING Hx and SMOKELESS TOBACCO SCREENING 01/07/1965 HEPATITIS C SCREENING 01/07/1970 COLOGUARD 01/07/1997 COLONOSCOPY 01/07/1997 COLORECTAL CANCER SCREENING 01/07/1997 FIT TEST 01/07/1997 FOBT 01/07/1997 SIGMOIDOSCOPY 01/07/1997 VIRTUAL COLONOSCOPY 01/07/1997 ABDOMINAL AORTIC ANEURYSM (AAA) SCREENING 01/07/2017 PNEUMOCOCCAL VACCINES (50+ years) (2 of 2 - PCV) 11/30/2019 11/29/2018 CREATININE LEVEL 04/01/2020 04/01/2019 INFLUENZA VACCINE (#1) 2025 , 05/08/2018, 10/18/2017 COVID-19 VACCINE (3 - 2024-2 6 season) 2025 11/10/2020, 10/20/2020 Adult Td,Tdap Booster 11/26/2026 11/26/2016 , 11/07/2016 RSV VACCINE (1 - 1-dose 75+ series) 01/07/2027 ZOSTER VACCINES Completed 04/19/2018, 11/29/2017 HEPATITIS A VACCINES Aged Out No long er eligible based on patient's age to complete this topic HIB VACCINES Aged Out No longer eligi ble based on patient's age to complete this topic MENINGOCOCCAL VACCINES (ACWY) Aged Out No longer eligible based on patient's age to complete this topic MENINGOCOCCAL VACCINES (B) Aged Out N o longer eligible based on patient's age to complete this topic Medical Devices Not on file Procedures Procedure Name Priority Date/Time Associated Diagnosis Comments CREATININE/EGFR Routine 04/01/2019 3:47 PM EDT Prostate cancer from Last 3 Months or Most Recently Relevant to Health Maintenance Results * Creatinine/eGFR (04/01/2019 3:47 PM EDT) CREATININE 0.90 0.5 - 1.5 mg/dL [facility] EGFR 88 >59 mL/min/1.7 3m2 [facility] Comment:If patient is black, multiply result by 1.159. Estimated glomerular filtration rate calculated using the CKD-EPI equation. Blood 04/01/2019 3:47 PM EDT 04/01/2019 3:52 PM EDT Madelaine Potts MD LAB BLOOD ORDERABLES Final Result [facility] [address] [place] [address] from Last 3 Months or Most Recently Relevant to Health Maintenance Insurance MEDICARE PART A & B [facility] PPO EPO MEDICARE PART A & B [facility] PPO EPO MEDICARE PART A & B [facility] PPO EPO [facility] PPO EPO [facility] PPO EPO MEDICARE PART A & B [facility] PPO EPO MEDICARE PART A & B [facility] PPO EPO MEDICARE PART A & B [facility] PPO EPO MEDICARE PART A & B [facility] PPO EPO Care Teams Injection Molding Machine Tender Relationship Specialty Start Date End Date Dinesh Feliz NP [address] [facility] [place] [facility] [place] [address] PCP - General Family Medicine 04/01/19 Additional Source Comments The information contained in this document represents components of the legal health record. It is not the complete legal health record.[facility]
--- OUTSIDE RECORDS SUMMARY | 2025-05-28 13:03 | XMS_ITS | Encounter Summary ---
Author Organization [facility] Address [address] [place] [address] Care Team Providers Care Net Making Supervisor Name Role Phone Dinesh Feliz Primary Care Provider [phone] Encounter Details Date Type Department Care Team Description 10/04/2023 Social Work [facility] Oncology Services [address] [place] [address] [facility] Social History Tobacco Use Types Packs/Day [...] on filedocumented in this encounter Care Teams Net Making Supervisor Relationship Specialty Start Date End Date Dinesh Feliz [address] [facility] [place] [address] PCP - General Family Medicine 09/04/23 documented as of this encounter
== END ==
LOC: HO.CARD 13:00
PROVIDERS: PCP Nurse Practitioner Family; Visit Provider Internal Medicine Cardiovascular Disease
DX: Z95.2 Presence of prosthetic heart valve (principal)
CPT/HCPCS: 93306; Q9957

== ENCOUNTER → 2025-05-28 13:02 | Outpatient (BNV) | payer MEDICARE, BC, SELFPAY | PROVIDERS: PCP Nurse Practitioner Family; Visit Provider Internal Medicine | DX: I42.2 Other hypertrophic cardiomyopathy (principal); I51.89 Other ill-defined heart diseases; Z95.3 Presence of xenogenic heart valve | CPT/HCPCS: 93306 ==

== ENCOUNTER 2025-06-23 10:08 | Outpatient (AMB) | payer MEDICARE, BC, SELFPAY ==
--- OUTSIDE RECORDS SUMMARY | 2024-01-22 03:30 | XMS_ITS ---
Author Organization [facility] Address [address] [place] [address] Care Team Providers Care High School Music Teacher Name Role Phone NERY SNEED Primary Care Provider Aston Grant [phone] REASON FOR VISIT ulcerative rectosigmoiditis,hx polyps,screening,gerd Problems Problem Type SNOMED Code ICD Code Onset Dates Problem Status W/U Status Risk Notes Problem History of polyp of colon (situation) (762866935) Personal history of colonic polyps (Z86.010) Active confirmed Problem Diverticular disease of colon (063971441) Diverticulosis of large intestine without perforation or abscess without bleeding (K57.30) Active confirmed Problem Chronic gastritis (2667485) Gastritis, chronic (K29.50) Active confirmed Problem Gastroesophageal reflux disease (317348061) Gastroesophageal reflux disease (K21.9) Active confirmed Encounters Encounter Location Date Provider Diagnosis [facility] [place] [address] [place] [phone] 01/22/2024 Aston Denis Encounter for screen ing [...] DANIKA LUIS FELIPE ADOB:1950 (75 yo M)Acc No.[id number]:01/22/2024 EGD and COL/MAC Patient: Vance JORGEDUSTY FUNGY Petar Provider: Leda Denis MD :1950 A ge:74 Y S ex:Male Date:01/22/2024 [id number] Pcp:NERY SNEED Subjective: * Chief Complaints: * [...] DOCD, 0528F RCMND FLW-UP 10 YRS DOCD, [address] UPPER GI ENDOSCOPY, BIOPSY * * The named appointment provid er may or may not be the originator of this progress note, and it is not deemed complete until electronically signed by the appointment provider. Sign off status: Pending * Provider: Leda Denis MD Date: 0 01/22/2024 Generated for Ludy patel/Ronny/Millicent on: 1 11:59 AM EDT
[2025-06-23 10:19] VITALS: BP 140/76; PULSE 62; RESP 16; O2SAT 99; BMI 30.9
--- NOTE | 2025-06-23 10:19 | A.OFFPC_ITS ---
Vital Signs 06/23/25 10:19 06/23/25 11:25 Height 5 ft 5 in Weight 186 lb BMI 30.9 BP 140/76 H 138/68 Blood Pressure Location Lt brachial Position Sitting Respiration 16 Pulse 62 Pulse Source Pulse Oximeter Pulse Oximetry (%) 99 Oxygen Delivery Method Room Air Intake Visit Reasons: pre-op Pipeline Controller Required: No Accompanied by: Self / Same As Patient Allergies No Known Allergies (No Known Allergies*) Allergy (Verified 06/23/25 10:21) Tobacco use date assessed: 06/23/25 Fall risk assessment: No Falls in past year Last assessed Fall Risk: 06/23/25 Dental Screening Dental Screen Date: 12/31/24 HPI pre-op HPI Details Chief Complaint The patient presents for a preoperative evaluation for left cataract surgery. History of Present Illness The patient is a 75-year-old male presenting with a preoperative evaluation for left cataract surgery. He reports feeling well and denies any shortness of breath, chest pain, recent infections, fevers, chills, or lymphadenopathy. During the cardiovascular examination, S1 and S2 heart sounds were noted with a systolic murmur. The respiratory examination revealed clear lungs bilaterally with slightly diminished breath sounds. No lymphadenopathy was observed during the examination. An EKG was performed today, showing no changes from previous results. Social History Health Maintenance Review of Systems - Cardiovascular: Denies chest pain, la nena rtness of breath - Respiratory: Denies shortness of breat h - General: Denies recent infections, fev ers, chills - Lymphatic: Denies lymphadenopathy Physical Exam General: Cooperative, healthy appearing, comfortable, no acute distress and well developed Orientation: Patient oriented x3 Limitations: No limitations Head: Normal to inspection Ears: Hearing grossly normal bilaterally Nose: Normal external nose present Face and sinus: Normal facial exam Eyes: Appearance normal, both eyes and all related structures Neck: Normal visual inspection and Yes full ROM, no lymphadenopathy Respiratory: Fairly clear bilaterally, slightly diminished Cardiovascular: Regular rate and rhythm. Normal S1 and S2 with a systolic murmur GI: Normal to inspection. Soft to palpation and nontender Neuro: Patient oriented x3 Extremities: Normal to inspection Results - EKG: No changes from previous results Plan 1. Preoperative Evaluation For Left Anne Marie ract Surgery The patient is cleared for left cataract surgery from a cardiovascular standpoint, as there are no significant changes noted in the EKG and no concerning symptoms reported. Discussion Notes I discussed with the patient that he is cleared for his left cataract surgery from a cardiovascular perspective, given the stable EKG and absence of concerning symptoms. Patient Instructions [facility] Medical History Aortic stenosis CAD (coronary artery disease) Erectile dysfunction Ulcerative colitis Duodenal bulb ulcer Dyslipidemia HTN (hypertension) Surgical History S/P TAVR (transcatheter aortic valve replacement) H/O radical prostatectomy History of eye surgery History of discectomy History of bunionectomy History of heart bypass surgery Family History Father No problems noted. Mother Smoker Emphysema, unspecified Maternal Grandfather No problems noted. Maternal Grandmother Stroke Diabetes mellitus Amputation of leg Paternal Grandfather Cancer Paternal Grandmother No problems noted. Other Substance use disorder Social History Housing: House Alcohol intake: current Patient Tobacco Use Status: Former Tobacco user e-Cigarette/Vaping Use: Never Used Second Hand Smoke Exposure: No service: No Current occupational status: retired Cognitive needs: No Hearing needs: No Vision needs: No Questionnaire Thrive Questionnaire Date Thrive assessed: 12/24/24 I am a: Patient What is your living situation today?: I have a steady place to live Within the past 12 months, did the food you bought not last and you didn't have the money to get more?: Never true Within the past 12 months, did you worry whether your food would run out before you got money to buy more?: Never true Do you have trouble paying for medicines?: No Do you have trouble getting transportation to medical appointments?: No Do you have trouble paying your heating and electricity bill?: No Do you have trouble taking care of your child, family member or friend?: No Do you have trouble with day-to-day activities such as bathing, preparing meals, shopping, managing finances, etc.?: No Are you currently unemployed and looking for a job?: No Are you interested in more education?: No Please select the resources that you would like help with: None Currently or been in a relationship where the following occur: No concerns reported THRIVE Score: 0 NISA-7 AMB Questionnaire NISA-7 Date NISA - 7 assessed: 12/31/24 Source: Developed by Drs. Aston Keen, Stephanie Yuan, Tahir Chandra and colleagues, with an educational claritza from [employer]. Physical exam (Primary Care) Vital Signs: Last Vital Signs Pulse 62 06/23/25 10:19 Resp 16 06/23/25 10:19 BP 140/76 H 06/23/25 10:19 Pulse Ox 99 06/23/25 10:19 Oxygen Delivery Method Room Air 06/23/25 10:19 BMI result Body Mass Index 30.9 Tobacco/Smoking Status: Tobacco use Status Tobacco use date assessed 06/23/25 06/23/25 10:24 Patient Tobacco Use Status Former Tobacco user 06/23/25 10:24 e-Cigarette/Vaping Use Never Used 06/23/25 10:24 Thrive Assessment: Date of Thrive Assessment Date Thrive assessed 12/24/24 06/23/25 10:24 Currently or been in a relationship where the following occur: No concerns reported Coding Level of Care Code Est Pt Prev Care >65y(82775) Diagnoses Pre-op evaluation Z01.818 Assessment & Plan Assessment & Plan (1) Pre-op evaluation: Comment: Patient is low cardiac risk for procedure. Code(s): Z01.818 - Encounter for other preprocedural examination Category: Medical Plan .
[2025-06-23 11:25] VITALS: BP 138/68
--- OUTSIDE RECORDS SUMMARY | 2025-06-23 11:58 | XMS_ITS | Encounter Summary ---
Author Organization [facility] Address [address] [place] [address] Phone Care Team Providers Care Supervisor Looping Name Role Phone Dinesh Feliz HAND BASEBALL SEWER Primary Care Provider + Encounter Details Date Type Department Care Team (Late st Contact Info) Description 04/16/2019 Procedure Pass [facility],Outside Imaging [address] [place] [address] Social History Tobacco Use Types Packs/Day Years [...] on filedocumented in this encounter Care Teams Supervisor Looping Relationship Specialty Start Date End Date Dinesh Feliz NP [facility] [place] [address] PCP - General Family Medicine 04/01/19 documented as of this encounter Additional Source Comments The information contained in this document represents components of the legal health record. It is not the complete legal health record.[facility]
--- OUTSIDE RECORDS SUMMARY | 2025-06-23 11:58 | XMS_ITS | Encounter Summary ---
Author Organization [facility] Address [address] [facility] [address] [place] [address] Phone Care Team Providers Care Referral Clerk Name Role Phone Dinesh Feliz DOWELING MACHINE OPERATOR Primary Care Provider + Reason for Referral * MRI/CAT Scan - Closed Specialty Diagnoses / Procedures Referred By Contac t Referred To Contact Procedures MRI Pelvis (Soft Tissue) Outside (No Interpretation) System, Provider Not In, [facility] [address] [place] [address] Referral ID Status Reason Start Date Expiration Date Visits Re quested Visits Authorized [id number] Closed 04/16/2019 04/15/2020 1 1 Encounter Details Date Type Department Care Team (Late st Contact Info) Description 04/16/2019 Ancillary Orders [facility],Outside Imaging [address] [place] [address] System, Provider Not In, [facility] [address] [place] [address] Social History Tobacco Use Types Packs/Day Years [...] on filedocumented in this encounter Care Teams Referral Clerk Relationship Specialty Start Date End Date Dinesh Feliz NP [facility] [place] [address] PCP - General Family Medicine 04/01/19 documented as of this encounter Additional Source Comments The information contained in this document represents components of the legal health record. It is not the complete legal health record.[facility]
--- OUTSIDE RECORDS SUMMARY | 2025-06-23 11:58 | XMS_ITS | Clinical Summary ---
Author Organization [facility] Address [address] [place] [address] Phone Care Team Providers Care Carbon Paper Interleafer Name Role Phone Dinesh Feliz NP Primary [...] Description 05/21/2025 11:30 AM EDT Office Visit [facility] Hematology Oncology [address] [place] [phone] Nikki Atkinson MD Adenocarcinoma of right lung, stage 1 (CMS/HCC V24, CMS/HCC V28) (Primary Dx); History of lung cancer; History of prostate cancer 04/08/2025 10:15 AM EDT Office Visit Thoracic Surgery - [place] [address] [facility] [address] [place] [phone] Billie Amin PA History of lung cancer 03/31/2025 3:14 PM EDT - 03/31/2025 11:59 PM EDT Hospital Encounter [facility] CT Scan [address] [place] [address] History of lung cancer Discharge Disposition: Home or Self Care from Last 3 Months Surgical History Surgery Date Site/Laterality Comments CARDIAC VALVE SURGERY PROCEDURE:CARDIAC VALVE SURGERY PROSTATE SURGERY PROCEDURE:PROSTATE SURGERY CORONARY ARTERY BYPASS GRAFT PROCEDURE:CORONARY ARTERY BYPASS GRAFT OTHER SURGICAL HISTORY 08/27/2023 Right RLL Lobectomy Medical History Medical History Date Comments Prostate cancer ([facility] V24, [facility] V28) DX:Prostate cancer (HCC) Coronary artery disease DX:Coron chaya artery disease Lung cancer ([facility] V24, [facility] V28) DX:Lung cancer (HCC) RLL Hypertension DX:Hypertension 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[facility] V24, [facility] 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/03/2024 Family History Medical History Relation [...] Description 05/25/2026 10:30 AM EDT Office Visit [facility] Hematology Oncology [address] [place] [address] Dustin-Nikki Gomez MD [address] [place] [address] Health Maintenance Due Date Last Done Comments Colorectal Cancer Screening: Colonoscopy 1950 COVID-19 Vaccine (#1) 01/07/1957 Pneumococcal Vaccine: 50+ Years (2 of 2 - PCV) 11/30/2019 11/29/2018 Abdominal Aortic Aneurysm (AAA) Screen 10/08/2023 Cholesterol Screening (Lipid Panel) 10/08/2023 Falls Risk Assessment 10/08/2023 Hepatitis C [...] pulmonary nodule or thoracic lymphadenopathy. [place] ([id number]) -------- FINAL REPORT -------- Dictated By: Elizabet Gross Dictated Date: 04/05/2025 08:38 ET Assigned Physician: Elizabet Gross Reviewed and Electronically Signed By: Elizabet Gross Signed Date: 04/05/2025 08:50 ET Workstation ID: [id number] Transcribed By: Self Edit Transcribed Date: 04/05/2025 08:38 ET Narrative 04/05/2025 8:50 AM EDT History: Lung carcinoma, status post right lower lobectomy 08/27/23. Surveillance imaging. Comparison: 09/18/24 ([facility]), 06/12/23 [place], [place] Technique: Helical volumetric imaging of the thorax was performed without IV contrast. DLP: 346.02 mGy/cm Livemap Iterative reconstruction technique Findings: Right lower lobectomy [...] right lower lobectomy 08/27/23.Surveillance imaging. Comparison: 09/18/24 ([facility]), 06/12/23 [place], [place] Technique: Helical volumetric imaging of the thorax was performed withoutIV contrast. DLP: 346.02 mGy/cm Design Within Reacher Iterative reconstruction technique Findings: Right lower lobectomy [...] No suspicious developing pulmonary nodule or thoraciclymphadenopathy. [employer] [place] ([id number]) -------- FINAL REPORT -------- Dictated By: Elizabet Gross Dictated Date: 04/05/2025 08:38 ET Assigned Physician: Elizabet Gross Reviewed and Electronically Signed By: Elizabet Gross Signed Date: 04/05/2025 08:50 ET Workstation ID: [id number] Transcribed By: Self Edit Transcribed Date: 04/05/2025 08:38 ET Billie LEY IMG CT PROCEDURES Final Resul t from Last 3 Months Insurance MEDICARE [facility] Care Teams Carbon Paper Interleafer Relationship Specialty Start Date End Date Dinesh Feliz NP [address] [facility] TAMIA Ellis PCP - General 09/04/23
--- OUTSIDE RECORDS SUMMARY | 2025-06-23 11:59 | XMS_ITS | Patient Health Record ---
Author Organization [facility] Address [address] [place] [address] Care Team Providers Care Co Founder And Ceo Name Role Phone NERY SNEED Primary Care Provider Aston Grant [phone] Allergies No Known Allergies Reason For Referral No Information Medications Medication [...] directed Active Evolocumab 140 MG/ML 1 mL Subcutaneous; Duration: 30 day(s) Active Clopidogrel Bisulfate 75 MG 1 tablet Orally Once a day; Duration: 30 day(s) Active Multi Vitamin - 1 tablet Orally Once a day; Duration: 30 day(s) Active Mesalamine 400 MG 2 tablets Orally Twi ce a day Active Omeprazole 20 MG TAKE 1 CAPSULE BY MOUTH EVERY DAY; Duration: 90 Active Polyethylene Glycol - as directed Active Sennosides 8.6 MG 2 tablets at bedtime as needed Orally Once a day; Duration: 30 day(s) Active Aspir-Low 81 MG 1 tablet Orally Once a day; Duration: 30 day(s) Active amLODIPine Besylate 5 MG 1 tablet Orally Once a day; Duration: 30 day(s) Active Docusate Sodium 100 MG 1 capsule as need ed Orally Once a day; Duration: 30 day(s) Active Acetaminophen 325 MG 1 tablet as needed Orally every 6 hrs Active oxyCODONE HCl 5 MG 1 tablet as needed Orally every 6 hrs Active Folic Acid 1 MG 1 tablet Orally Once a day; Duration: 30 Active Lidocaine 4 % 1 patch [...] Problem Status W/U Status Risk Notes Problem Screening for malignant neoplasm of colon (748128536) Encounter for screening for malignant neoplasm of colon (Z12.11) Active confirmed Problem History of adenomatous polyp of colon (247944427) History of adenomatous polyp of colon (Z86.010) Active confirmed Problem History of polyp of colon (situation) (573505950) Personal history of colonic polyps (Z86.010) Active confirmed Problem Diverticular disease of colon (308085855) Diverticulosis of large intestine without perforation or abscess without bleeding (K57.30) Active confirmed Problem Gastroesophageal reflux disease (213293755) Gastroesophageal reflux disease (K21.9) Active confirmed Problem Duodenal ulcer with hemorrhage (52861561) Duodenal ulcer with hemorrhage (K26.4) Active confirmed Problem Chronic gastritis (2169947) Gastritis, chronic (K29.50) Active confirmed Problem 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) Active confirmed Problem Gastroesophageal reflux disease with esophagitis (disorder) (852990292) Gastroesophageal reflux disease with esophagitis without hemorrhage (K21.00) Active confirmed Plan Of Treatment Future Test Test Name Order Date UPPER GI ENDOSCOPY 08/05/2012 COLONOSCOPY 08/05/2012 COLONOSCOPY 10/17/2017 UPPER GI ENDOSCOPY 09/18/2023 COLONOSCOPY 09/18/2023 Insurance Providers Payer Name Payer Address Payer Phone Subscriber Number Group Number Insured Name Patient Relationship to Insured Coverage Start Date Coverage End Date MEDICARE OF [place] [address] [place] [place] [address] [id number] LUIS FELIPE GARNICA Self - patient is the insured [facility] [address] [place], [place] [id number] DANIKALUIS FELIPE Self - patient is the insured Medical (General) History Medical History History ICD Code Ulcerative Colitis--diagnose d in the -colonoscopy in 09/2012--no active colitis nor polyps--bx neg. for dysplasia; tubular adenoma removed in 2007; colonoscopy in 12/2017 neg. for active colitis nor dysplasia, 1 small tubular adenoma removed. Hyperlipidemia [place] 1994, 5V CABG in 1995-no prolems sinc [...]
--- OUTSIDE RECORDS SUMMARY | 2025-06-23 11:59 | XMS_ITS | Encounter Summary ---
Author Organization [facility] Address [address] [place] [address] Care Team Providers Care Railroad Track Inspector Name Role Phone Dinesh Feliz Primary Care Provider [phone] Encounter Details Date Type Department Care Team Description 10/04/2023 Social Work [facility] Oncology Services [address] [place] [address] [facility] Social History Tobacco Use Types Packs/Day Years [...] on filedocumented in this encounter Care Teams Railroad Track Inspector Relationship Specialty Start Date End Date Dinesh Feliz [address] [facility] [place] [address] PCP - General Family Medicine 09/04/23 documented as of this encounter
--- OUTSIDE RECORDS SUMMARY | 2025-06-23 11:59 | XMS_ITS | Clinical Summary ---
Author Organization [facility] Address [address] [place] [address] Care Team Providers Care Crm Marketing Manager Name Role Phone Dinesh Feliz Primary Care Provider [phone] Allergies No known active allergies Medications Medication [...] age to complete this topic Care Teams Crm Marketing Manager Relationship Specialty Start Date End Date Dinesh Feliz [address] [place] [address] PCP - General Family Medicine 09/04/23
--- OUTSIDE RECORDS SUMMARY | 2025-06-23 11:59 | XMS_ITS | Clinical Summary ---
Author Organization [facility] Address [address] [facility] [address] [place] [address] Phone Care Team Providers Care Hearing Health Technician Name Role Phone Dinesh Feliz APPLIED MARINE PHYSICS PROFESSOR Primary Care Provider + Medications sulfaSALAzine (AZULFIDINE) [...] Take 5 mg by mouth daily. Active kharnwge-svm-up rrous gluconate (CENTRUM WITH IRON) 9 mg [...] EDT) CREATININE 0.90 0.5 - 1.5 mg/dL [facility] EGFR 88 >59 mL/min/1.[address] [facility] Comment:If patient is black, multiply result by 1.159. Estimated glomerular filtration rate calculated using the CKD-EPI equation. Blood 04/01/2019 3:47 PM EDT 04/01/2019 3:52 PM EDT Madelaine Potts MD LAB BLOOD ORDERABLES Final Result [facility] [address] [place] [address] from Last 3 Months or Most Recently Relevant to Health Maintenance Insurance MEDICARE PART A & B [facility] PPO EPO MEDICARE PART A & B [facility] PPO EPO MEDICARE PART A & B [facility] PPO EPO [facility] PPO EPO [facility] PPO EPO MEDICARE PART A & B [facility] PPO EPO MEDICARE PART A & B [facility] PPO EPO MEDICARE PART A & B [facility] PPO EPO MEDICARE PART A & B [facility] PPO EPO Care Teams Hearing Health Technician Relationship Specialty Start Date End Date Dinesh Feliz NP [address] [place] [address] PCP - General Family Medicine 04/01/19 Additional Source Comments The information contained in this document represents components of the legal health record. It is not the complete legal health record.[facility]
--- OUTSIDE RECORDS SUMMARY | 2025-06-23 12:00 | XMS_ITS | Encounter Summary ---
Author Organization [facility] Address [address] [place] [address] Phone Care Team Providers Care Executive Producer Name Role Phone Dinesh Feliz SAND MILL GRINDER Primary Care Provider + Encounter Details Date Type Department Care Team (Late st Contact Info) Description 04/01/2019 Procedure Pass [facility] [address] [place] [address] Social History Tobacco Use Types Packs/Day Years [...] on filedocumented in this encounter Care Teams Executive Producer Relationship Specialty Start Date End Date Dinesh Feliz NP [address] [facility] [place] [address] PCP - General Family Medicine 04/01/19 documented as of this encounter Additional Source Comments The information contained in this document represents components of the legal health record. It is not the complete legal health record.[facility]
== END 2025-06-23 11:55 | disposition home or self-care (01) ==
LOC: HO.HMCC 10:09
PROVIDERS: PCP Nurse Practitioner Family; Visit Provider Nurse Practitioner Family
DX: H25.9 Unspecified age-related cataract (principal); Z01.818 Encounter for other preprocedural examination

== ENCOUNTER → 2025-06-23 10:08 | Outpatient (BNVA) | payer MEDICARE, BC, SELFPAY | PROVIDERS: PCP Nurse Practitioner Family; Visit Provider Nurse Practitioner Family | DX: Z01.818 Encounter for other preprocedural examination (principal); H26.9 Unspecified cataract | CPT/HCPCS: 99212 ==

== ENCOUNTER 2025-06-30 08:04 | Outpatient (REF) | payer MEDICARE, BC, SELFPAY ==
--- OUTSIDE RECORDS SUMMARY | 2024-01-22 03:30 | XMS_ITS ---
Author Organization [facility] Address [address] [place] [address] Care Team Providers Care Director Of Testing Name Role Phone NERY SNEED Primary Care Provider Aston Grant [phone] REASON FOR VISIT ulcerative rectosigmoiditis,hx polyps,screening,gerd Problems Problem Type SNOMED Code ICD Code Onset Dates Problem Status W/U Status Risk Notes Problem History of polyp of colon (situation) (040237573) Personal history of colonic polyps (Z86.010) Active confirmed Problem Diverticular disease of colon (547114546) Diverticulosis of large intestine without perforation or abscess without bleeding (K57.30) Active confirmed Problem Chronic gastritis (1206443) Gastritis, chronic (K29.50) Active confirmed Problem Gastroesophageal reflux disease (240024006) Gastroesophageal reflux disease (K21.9) Active confirmed Encounters Encounter Location Date Provider Diagnosis [facility] [place] Outpatient [address] [place] [address] [phone] 01/22/2024 Aston Denis Encounter for screen ing colonoscopy Z12.11 ; Personal history of colonic polyps Z86.010 ; 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 ; Diverticulosis of large intestine without perforation or abscess without bleeding K57.30 ; Other hemorrhoids K64.8 ; Hiatal hernia K44.9 ; Gastritis, chronic K29.50 and Gastroesophageal reflux disease K21.9 Assessments Encounter Date Diagnosis (ICD Code) Assessment Notes Treatment Notes Treatment Clinical Notes Section Notes 01/22/2024 Encounter for screening colonoscopy (ICD-10 - Z12.11) 01/22/2024 Personal history of colonic polyps (ICD-10 - Z86.010) 01/22/2024 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) 01/22/2024 Diverticulosis of large intestine without perforation or abscess without bleeding (ICD-10 - K57.30) 01/22/2024 Other hemorrhoids (ICD-10 - K64.8) 01/22/2024 Hiatal hernia (ICD-10 - K44.9) 01/22/2024 Gastritis, chronic (ICD-10 - K29.50) 01/22/2024 Gastroesophageal reflux disease (ICD-10 - K21.9) Plan Of Treatment No Information Progress Notes * DANIKA LUIS FELIPE ADOB:1950 (75 yo M)Acc No.[id number]:01/22/2024 EGD and COL/MAC Patient: Vance JORGEDUSTY FUNGY Petar Provider: Leda Denis MD :1950 A ge:74 Y S ex:Male Date:01/22/2024 [id number] Pcp:NERY SNEED Subjective: * Chief Complaints: * 1 . Ulcerative rectosigmoiditis,hx polyps,screening,gerd. * Medical History: Objective: * Vitals: Assessment: * Assessment: 1. E ncounter for screening colonoscopy - Z12.11 (Primary) 2 . P ersonal history of colonic polyps - Z86.010 3 . 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 D iverticulosis of large intestine without perforation or abscess without bleeding - K57.30 5 . O ther hemorrhoids - K64.8 6 . H iatal hernia - K44.9 7 . G astritis, chronic - K29.50 8 . G astroesophageal reflux disease - K21.9 Plan: * Treatment: * Procedure Codes: 4 5380 COLONOSCOPY AND BIOPSY, Modifiers: PT , 0529F INTRVL 3+YRS PTS CLNSCP DOCD, 0528F RCMND FLW-UP 10 YRS DOCD, [address] UPPER GI ENDOSCOPY, BIOPSY * * The named appointment provid er may or may not be the originator of this progress note, and it is not deemed complete until electronically signed by the appointment provider. Sign off status: Pending * Provider: Leda Denis MD Date: 0 01/22/2024 Generated for Ludy patel/Ronny/Millicent on: 1 08:08 AM EDT
--- OUTSIDE RECORDS SUMMARY | 2025-06-30 08:08 | XMS_ITS | Clinical Summary ---
Author Organization [facility] Address [address] [place] [address] Care Team Providers Care Instructor Traffic Safety Name Role Phone Dinesh Feliz Primary Care Provider [phone] Allergies No known active allergies Medications Medication [...] age to complete this topic Care Teams Instructor Traffic Safety Relationship Specialty Start Date End Date Dinesh Feliz [address] [place] [address] PCP - General Family Medicine 09/04/23
--- OUTSIDE RECORDS SUMMARY | 2025-06-30 08:08 | XMS_ITS | Encounter Summary ---
Author Organization [facility] Address [address] [place] [address] Care Team Providers Care Wood Treating Inspector Name Role Phone Dinesh Feliz Primary Care Provider [phone] Encounter Details Date Type Department Care Team Description 10/04/2023 Social Work [facility] Oncology Services [address] [place] [address] [facility] Social History Tobacco Use Types [...] on filedocumented in this encounter Care Teams Wood Treating Inspector Relationship Specialty Start Date End Date Dinesh Feliz [address] [facility] [place] [address] PCP - General Family Medicine 09/04/23 documented as of this encounter
--- OUTSIDE RECORDS SUMMARY | 2025-06-30 08:08 | XMS_ITS | Clinical Summary ---
Author Organization [facility] Address [address] [place] [address] Phone Care Team Providers Care Field Crop I Farmworker Name Role Phone Dinesh Feliz NP Primary Care Provider [phone] Allergies No known active allergies Medications aspirin [...] Description 05/21/2025 11:30 AM EDT Office Visit [facility] Hematology Oncology [address] [place] [phone] Nikki Atkinson MD Adenocarcinoma of right lung, stage 1 (CMS/HCC V24, CMS/HCC V28) (Primary Dx); History of lung cancer; History of prostate cancer 04/08/2025 10:15 AM EDT Office Visit Thoracic Surgery - [place] [address] [facility] [address] [place] [phone] Billie Amin PA History of lung cancer 03/31/2025 3:14 PM EDT - 03/31/2025 11:59 PM EDT Hospital Encounter [facility] CT Scan [address] [place] [address] History of lung cancer Discharge Disposition: Home or Self Care from Last 3 Months Surgical History Surgery Date Site/Laterality Comments CARDIAC VALVE SURGERY PROCEDURE:CARDIAC VALVE SURGERY PROSTATE SURGERY PROCEDURE:PROSTATE SURGERY CORONARY ARTERY BYPASS GRAFT PROCEDURE:CORONARY ARTERY BYPASS GRAFT OTHER SURGICAL HISTORY 08/27/2023 Right RLL Lobectomy Medical History Medical History Date Comments Prostate cancer ([facility] V24, [facility] V28) DX:Prostate cancer (HCC) Coronary artery disease DX:Coron chaya artery disease Lung cancer ([facility] V24, [facility] V28) DX:Lung cancer (HCC) RLL Hypertension DX:Hypertension 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 ([id number]) -------- FINAL REPORT -------- Dictated By: Elizabet Gross Dictated Date: 04/05/2025 08:38 ET Assigned Physician: Elizabet Gross Reviewed and Electronically Signed By: Elizabet Gross Signed Date: 04/05/2025 08:50 ET Workstation ID: [id number] Transcribed By: Self Edit Transcribed Date: 04/05/2025 08:38 ET Narrative 04/05/2025 8:50 AM EDT History: Lung carcinoma, status post right lower lobectomy 08/27/23. Surveillance imaging. Comparison: 09/18/24 ([facility]), 06/12/23 [place], [place] Technique: Helical volumetric imaging of the thorax was performed without IV contrast. DLP: 346.02 mGy/cm MicroEnsure Iterative reconstruction technique Findings: Right lower lobectomy [...] right lower lobectomy 08/27/23.Surveillance imaging. Comparison: 09/18/24 ([facility]), 06/12/23 [place], [place] Technique: Helical volumetric imaging of the thorax was performed withoutIV contrast. DLP: 346.02 mGy/cm [email or web address] Iterative reconstruction technique Findings: Right lower lobectomy [...] No suspicious developing pulmonary nodule [place] thoraciclymphaden[place] [employer] [place] ([id number]) -------- FINAL REPORT -------- Dictated By: Elizabet Gross Dictated Date: 04/05/2025 08:38 ET Assigned Physician: Elizabet Gross Reviewed and Electronically Signed By: Elizabet Gross Signed Date: 04/05/2025 08:50 ET Workstation ID: [id number] Transcribed By: Self Edit Transcribed Date: 04/05/2025 08:38 ET Billie LEY IMG CT PROCEDURES Final Resul t from Last 3 Months Insurance MEDICARE [facility] Care Teams Field Crop I Farmworker Relationship Specialty Start Date End Date Dinesh Feliz NP [address] [facility] TAMIA Ellis PCP - General 09/04/23
--- OUTSIDE RECORDS SUMMARY | 2025-06-30 08:08 | XMS_ITS | Encounter Summary ---
Author Organization [facility] Address [address] [place] [address] Phone Care Team Providers Care Customer Marketing Assistant Name Role Phone Dinesh Feliz INSPECTOR EXHAUST EMISSIONS Primary Care Provider + Encounter Details Date Type Department Care Team (Late st Contact Info) Description 04/16/2019 Procedure Pass [facility],Outside Imaging [address] [place] [address] Social History Tobacco Use Types Packs/Day Years [...] on filedocumented in this encounter Care Teams Customer Marketing Assistant Relationship Specialty Start Date End Date Dinesh Feliz NP [address] [facility] [place] [address] PCP - General Family Medicine 04/01/19 documented as of this encounter Additional Source Comments The information contained in this document represents components of the legal health record. It is not the complete legal health record.[facility]
--- OUTSIDE RECORDS SUMMARY | 2025-06-30 08:08 | XMS_ITS | Patient Health Record ---
Author Organization [facility] Address [address] [place] [address] Care Team Providers Care Change Manager Name Role Phone NERY SNEED Primary Care Provider Aston Grant [phone] Allergies No Known Allergies Reason For Referral [...] Problem Screening for malignant neoplasm of colon (410162724) Encounter for screening for malignant neoplasm of colon (Z12.11) Active confirmed Problem History of adenomatous polyp of colon (980959018) History of adenomatous polyp of colon (Z86.010) Active confirmed Problem History of polyp of colon (situation) (995970696) Personal history of colonic polyps (Z86.010) Active confirmed Problem Diverticular disease of colon (066366979) Diverticulosis of large intestine without perforation or abscess without bleeding (K57.30) Active confirmed Problem Gastroesophageal reflux disease (402989648) Gastroesophageal reflux disease (K21.9) Active confirmed Problem Duodenal ulcer with hemorrhage (28057805) Duodenal ulcer with hemorrhage (K26.4) Active confirmed Problem Chronic gastritis (4044391) Gastritis, chronic (K29.50) Active confirmed Problem Chronic ulcerative rectosigmoiditis (39541145) 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) Active confirmed Problem Gastroesophageal reflux disease with esophagitis (disorder) (400269370) Gastroesophageal reflux disease with esophagitis without hemorrhage (K21.00) Active confirmed Plan Of Treatment Future Test Test Name Order Date UPPER GI ENDOSCOPY 08/05/2012 COLONOSCOPY 08/05/2012 COLONOSCOPY 10/17/2017 UPPER GI ENDOSCOPY 09/18/2023 COLONOSCOPY 09/18/2023 Insurance Providers Payer Name Payer Address Payer Phone Subscriber Number Group Number Insured Name Patient Relationship to Insured Coverage Start Date Coverage End Date MEDICARE OF [place] [address] [facility] [place] [address] [id number] LUIS FELIPE GARNICA Self - patient is the insured [facility] [address] [place], [place] [id number] [phone] [id number] DANIKALUIS FELIPE Self - patient is the insured Medical (General) History Medical History History ICD Code Ulcerative Colitis--diagnose d in the -colonoscopy in 09/2012--no active colitis nor polyps--bx neg. for dysplasia; tubular adenoma removed in 2007; colonoscopy in 12/2017 neg. for active colitis nor dysplasia, 1 small tubular adenoma removed. Hyperlipidemia [place] 1994, 5V CABG in 1995-no prolems sinc [...]
--- OUTSIDE RECORDS SUMMARY | 2025-06-30 08:08 | XMS_ITS | Encounter Summary ---
Author Organization [facility] Address [address] [facility] [address] [place] [address] Phone Care Team Providers Care Research Scientist Name Role Phone Dinesh Feliz UI SOFTWARE DEVELOPER Primary Care Provider + Reason for Referral * MRI/CAT Scan - Closed Specialty Diagnoses / Procedures Referred By Contac t Referred To Contact Procedures MRI Pelvis (Soft Tissue) Outside (No Interpretation) System, Provider Not In, PhD [facility] [address] [place] [address] Referral ID Status Reason Start Date Expiration Date Visits Re quested Visits Authorized [id number] Closed 04/16/2019 04/15/2020 1 1 Encounter Details Date Type Department Care Team (Late st Contact Info) Description 04/16/2019 Ancillary Orders [facility],Outside Imaging [address] [place] [address] System, Provider Not In, PhD [facility] [address] [place] [address] Social History Tobacco Use Types Packs/Day Years [...] on filedocumented in this encounter Care Teams Research Scientist Relationship Specialty Start Date End Date Dinesh Feliz NP [facility] [place] [address] PCP - General Family Medicine 04/01/19 documented as of this encounter Additional Source Comments The information contained in this document represents components of the legal health record. It is not the complete legal health record.[facility]
--- OUTSIDE RECORDS SUMMARY | 2025-06-30 08:08 | XMS_ITS | Encounter Summary ---
Author Organization [facility] Address [address] [place] [address] Phone Care Team Providers Care Assistant Professor Of Art Name Role Phone Dinesh Feliz TRAVEL COTA Primary Care Provider + Encounter Details Date Type Department Care Team (Late st Contact Info) Description 04/01/2019 Procedure Pass [facility] [address] [place] [address] Social History Tobacco Use Types Packs/Day Years [...] on filedocumented in this encounter Care Teams Assistant Professor Of Art Relationship Specialty Start Date End Date Dinesh Feliz NP [address] [facility] [place] [address] PCP - General Family Medicine 04/01/19 documented as of this encounter Additional Source Comments The information contained in this document represents components of the legal health record. It is not the complete legal health record.[facility]
--- OUTSIDE RECORDS SUMMARY | 2025-06-30 08:08 | XMS_ITS | Clinical Summary ---
Author Organization [facility] Address [address] [facility] [address] [place] [address] Phone Care Team Providers Care Evp And Chief Operating Officer Name Role Phone Dinesh Feliz DISPENSARY ATTENDANT Primary Care Provider + Medications sulfaSALAzine (AZULFIDINE) [...] Take 5 mg by mouth daily. Active llybgcol-cfa-rw rrous gluconate (CENTRUM WITH IRON) 9 mg [...] EDT) CREATININE 0.90 0.5 - 1.5 mg/dL [facility] EGFR 88 >59 mL/min/1.7 3m2 [facility] Comment:If patient is black, multiply result by 1.159. Estimated glomerular filtration rate calculated using the CKD-EPI equation. Blood 04/01/2019 3:47 PM EDT 04/01/2019 3:52 PM EDT Madelaine Potts MD LAB BLOOD ORDERABLES Final Result [facility] [address] [place] [address] from Last 3 Months or Most Recently Relevant to Health Maintenance Insurance MEDICARE PART A & [facility] PART A & [facility] E[facility] MEDIC[facility] PART A & [facility] MED[facility] PART A & [facility] PART [facility] & [facility] MED[facility] PART A & [facility] E[facility] MEDICARE PART A & [facility] E[facility] Care Teams Evp And Chief Operating Officer Relationship Specialty Start Date End Date Dinesh Feliz NP [address] [facility] [place] [place] [address] PCP - General Family Medicine 04/01/19 Additional Source Comments The information contained in this document represents components of the legal health record. It is not the complete legal health record.[facility]
[2025-06-30 11:24] LABS: MANUAL DIFF FLAG NO
[2025-06-30 11:29] LABS: Hematocrit 50.4 % (42.0-52.0); Hemoglobin 16.5 g/dl (14.0-18.0); Imm Gran Abs Auto 0.02 X10*3/uL (0.00-0.03); Imm Gran Pct Auto 0.3 % (0.0-0.4); Lymphocytes Absolute Auto 1.4 X10*3/uL (1.2-4.9); Mean Corpuscular HGB Conc 32.7 g/dl (31.0-36.0); Mean Corpuscular Hemoglobin 31.7 pg (27.0-33.0); Mean Corpuscular Volume 96.9 fL (80.0-98.0); NRBC Abs Auto 0.000 X10*3/uL (0.0-0.012); NRBC Pct Auto 0.0 /100WBC (0.0-0.2); Platelet Count 219 X10*3/uL (160-400); Red Blood Count 5.20 X10*6/uL (4.60-5.80); White Blood Count 6.9 X10*3/uL (4.8-10.8)
[2025-06-30 12:03] LABS: Alanine Aminotransferase 29 U/L (0-40); Albumin Level 4.5 g/dL (3.5-5.0); Alkaline Phosphatase 40 U/L (39-117); Anion Gap 11 (12-20); Aspartate Amino Transferase 42 U/L (5-37); Blood Urea Nitrogen 15 mg/dL (9-16); Calcium 9.8 mg/dL (8.4-10.2); Carbon Dioxide 28 mmol/L (22-29); Chloride 108 mmol/L (96-108); Cholesterol 103 mg/dL (<200); Estimated Glomerular Filt Rate > 60; HDL Cholesterol 60 mg/dL (>40); Potassium 3.8 mmol/L (3.3-5.1); Sodium 143 mmol/L (135-145); Total Protein 7.4 g/dL (6.5-8.0); Triglycerides 99 mg/dL (<150)
[2025-06-30 14:12] LABS: Appearance Urine Clear; Glucose Urine UA Negative (Negative); PH 7.5 (5.0-9.0); Specific Gravity - Urine 1.015 (1.005-1.025)
== END 2025-06-30 08:05 | disposition home or self-care (01) ==
LOC: HO.WFDLDS 08:04
PROVIDERS: Visit Provider Nurse Practitioner Family
DX: I10 Essential (primary) hypertension (principal); E78.5 Hyperlipidemia, unspecified
CPT/HCPCS: 36415; 80053; 80061; 81003; 84443; 85025

== ENCOUNTER 2025-07-07 12:19 | Outpatient (AMB) | payer MEDICARE, BC, SELFPAY ==
--- OUTSIDE RECORDS SUMMARY | 2024-01-22 03:30 | XMS_ITS ---
Author Organization [facility] Address [address] [place] [address] Care Team Providers Care Constitutional Law Professor Name Role Phone NERY SNEED Primary Care Provider Aston Grant [phone] REASON FOR VISIT ulcerative rectosigmoiditis,hx polyps,screening,gerd Problems Problem Type SNOMED Code ICD Code Onset Dates Problem Status W/U Status Risk Notes Problem History of polyp of colon (situation) (316513684) Personal history of colonic polyps (Z86.010) Active confirmed Problem Diverticular disease of colon (324423690) Diverticulosis of large intestine without perforation or abscess without bleeding (K57.30) Active confirmed Problem Chronic gastritis (9707756) Gastritis, chronic (K29.50) Active confirmed Problem Gastroesophageal reflux disease (163014022) Gastroesophageal reflux disease (K21.9) Active confirmed Encounters Encounter Location Date Provider Diagnosis [facility] [place] Out[place] [address] [place] [address] [phone] 01/22/2024 Asotn Denis Encounter for screen ing colonoscopy Z12.11 [...] DANIKA LUIS FELIPE ADOB:1950 (75 yo M)Acc No.[id number]:01/22/2024 EGD and COL/MAC Patient: Vance JORGEDUSTY FUNGY Petar Provider: Leda Denis MD :1950 A ge:74 Y S ex:Male Date:01/22/2024 [id number] Pcp:NERY SNEED Subjective: * Chief Complaints: * [...] DOCD, 0528F RCMND FLW-UP 10 YRS DOCD, [address] UPPER GI ENDOSCOPY, BIOPSY * * The named appointment provid er may or may not be the originator of this progress note, and it is not deemed complete until electronically signed by the appointment provider. Sign off status: Pending * Provider: Leda Denis MD Date: 0 01/22/2024 Generated for Ludy patel/Ronny/Millicent on: 1 03:42 PM EDT
[2025-07-07 12:45] VITALS: BP 150/80; PULSE 85; RESP 16; O2SAT 98; BMI 30.9
--- NOTE | 2025-07-07 12:45 | A.OFFPC_ITS ---
Vital Signs 07/07/25 12:45 07/07/25 13:39 Height 5 ft 5 in Weight 186 lb BMI 30.9 BP 150/80 H 158/78 H Blood Pressure Location Lt brachial Lt brachial Position Sitting Sitting Respiration 16 Pulse 85 Pulse Source Pulse Oximeter Pulse Oximetry (%) 98 Oxygen Delivery Method Room Air Intake Visit Reasons: PE Allergies No Known Allergies (No Known Allergies*) Allergy (Verified 07/07/25 13:19) Medication List - Last Reconciled 07/07/25 by BILL Dolan- amlodipine 5 mg PO DAILY aspirin 81 mg PO DAILY evolocumab (Repatha SureClick) 140 mg subcut Q2W 30 days ezetimibe 10 mg PO DAILY mesalamine 800 mg (2 x 400 mg) PO BID multivitamin (Daily Multi-Vitamin tablet) 1 tab PO DAILY omeprazole 20 mg PO DAILY rosuvastatin 40 mg PO DAILY Tobacco use date assessed: 06/23/25 Dental Screening Dental Screen Date: 12/31/24 HPI PE HPI Details History of Present Illness The patient is a 75-year-old male presenting for a physical exam. He has a history of prostatectomy, and his last PSA in November was undetectable at less than 0.10. Recent laboratory work showed a slightly elevated AST, a normal thyroid function, and an LDL of 24. A urinalysis was clear with no blood. The patient reports drinking a couple of beers on a regular basis. Health Maintenance - The patient sees cardiology on a regul ar basis. - His last PSA was in November and was unde tectable. -colon screen is up to date Social History - Substance Use: The patient reports dri nking a couple of beers on a regular basis. Review of Systems - Cardiovascular: Denies chest pain. - Respiratory: Denies shortness of breat h. - Gastrointestinal: Denies abdominal merced n, blood in stool, constipation, or diarrhea. - Genitourinary: Denies hematuria. - Psychiatric: Denies suicidal or homici mauricio ideation. Physical Exam General: Cooperative, healthy appearing, comfortable, no acute distress and well developed Orientation: Patient oriented x3 Limitations: No limitations Head: Normal to inspection Ears: Hearing grossly normal bilaterally Nose: Normal external nose present Face and sinus: Normal facial exam Eyes: Appearance normal, both eyes and all related structures Neck: Normal visual inspection and Yes full ROM Respiratory: Normal respiratory effort and able to speak in complete sentences. Clear to auscultation bilaterally Cardiovascular: Regular rate and rhythm. Normal S1 and S2, systolic murmur GI: Normal to inspection. Soft to palpation and nontender : Testicles without masses/lesions and no hernias appreciated Skin: right forearm, dorsal with circular macular greyish colored lesion, fair skinned Neuro: Patient oriented x3 Extremities: Normal to inspection Results - Labs: Recent lab work revealed a sligh tly elevated AST, an LDL of 24, and normal thyroid function. - PSA: Last checked in November and was und etectable (<0.10). - Urinalysis: Clear, with no blood prese nt. Plan 1. Elevated Blood Pressure The patient had a slightly elevated blood pressure reading in the office. He will monitor his blood pressure at home and send the values in three weeks for further assessment. 2. Elevated Ast Recent lab work showed a slightly elevated AST. Given his regular beer consumption, an abdominal ultrasound will be ordered. 3. History Of Prostatectomy The patient has a history of prostatectomy, with his last PSA in November being undetectable. He is not due for a repeat PSA at this time. Discussion Notes I discussed with the patient his slightly elevated blood pressure and the plan to monitor it at home, with a follow-up on the values in three weeks. We also reviewed his lab work, noting the impressive LDL of 24. Due to a slightly elevated AST and his regular beer intake, I am ordering an abdominal ultrasound to evaluate his liver. We confirmed that his PSA is not due at this time. Patient Instructions - Please check your blood pressure at ho me. - Please send me your blood pressure aleksandr dings in three weeks. - We will be scheduling an abdominal ult rasound for you to check on your liver. [facility] Medical History Aortic stenosis CAD (coronary artery disease) Erectile dysfunction Ulcerative colitis Duodenal bulb ulcer Dyslipidemia HTN (hypertension) Surgical History S/P TAVR (transcatheter aortic valve replacement) H/O radical prostatectomy History of eye surgery History of discectomy History of bunionectomy History of heart bypass surgery Family History Father No problems noted. Mother Smoker Emphysema, unspecified Maternal Grandfather No problems noted. Maternal Grandmother Stroke Diabetes mellitus Amputation of leg Paternal Grandfather Cancer Paternal Grandmother No problems noted. Other Substance use disorder Social History Housing: House Alcohol intake: current Patient Tobacco Use Status: Former Tobacco user e-Cigarette/Vaping Use: Never Used Second Hand Smoke Exposure: No service: No Current occupational status: retired Cognitive needs: No Hearing needs: No Vision needs: No Questionnaire Thrive Questionnaire Date Thrive assessed: 12/24/24 I am a: Patient What is your living situation today?: I have a steady place to live Within the past 12 months, did the food you bought not last and you didn't have the money to get more?: Never true Within the past 12 months, did you worry whether your food would run out before you got money to buy more?: Never true Do you have trouble paying for medicines?: No Do you have trouble getting transportation to medical appointments?: No Do you have trouble paying your heating and electricity bill?: No Do you have trouble taking care of your child, family member or friend?: No Do you have trouble with day-to-day activities such as bathing, preparing meals, shopping, managing finances, etc.?: No Are you currently unemployed and looking for a job?: No Are you interested in more education?: No Please select the resources that you would like help with: None Currently or been in a relationship where the following occur: No concerns reported THRIVE Score: 0 NISA-7 AMB Questionnaire NISA-7 Date NISA - 7 assessed: 12/31/24 Source: Developed by Drs. Aston Keen, Stephanie Yuan, Tahir Chandra and colleagues, with an educational claritza from [employer]. Physical exam (Primary Care) Vital Signs: Last Vital Signs Pulse 85 07/07/25 12:45 Resp 16 07/07/25 12:45 BP 150/80 H 07/07/25 12:45 Pulse Ox 98 07/07/25 12:45 Oxygen Delivery Method Room Air 07/07/25 12:45 BMI result Body Mass Index 30.9 Tobacco/Smoking Status: Tobacco use Status Tobacco use date assessed 06/23/25 07/07/25 12:46 Patient Tobacco Use Status Former Tobacco user 07/07/25 12:46 e-Cigarette/Vaping Use Never Used 07/07/25 12:46 Thrive Assessment: Date of Thrive Assessment Date Thrive assessed 12/24/24 07/07/25 12:46 Currently or been in a relationship where the following occur: No concerns reported Coding Level of Care Code Est Pt Level 3 (85410) Est Pt Prev Care >65y(34758) Diagnoses Encounter for routine adult physical exam with abnormal findings Z00.01 Skin lesion L98.9 Hypertension, unspecified type I10 Hypertension type: unspecified Assessment & Plan Assessment & Plan (1) Encounter for routine adult physical exam with abnormal findings: Code(s): Z00.01 - Encounter for general adult medical examination with abnormal findings Category: Medical (2) Skin lesion: Code(s): L98.9 - Disorder of the skin and subcutaneous tissue, unspecified Category: Medical (3) HTN (hypertension): Comment: Controlled Code(s): I10 - Essential (primary) hypertension Category: Medical Qualifiers: Hypertension type: unspecified Qualified Code(s): I10 - Essential (primary) hypertension Plan will send BPs through the portal in a few weeks Orders: Referrals Dermatology Referral L98.9 - Disorder of the skin and subcutaneous tissue, un specified Medications: Refilled mesalamine 800 mg (2 x 400 mg) PO BID 360 ea 1RF
[2025-07-07 13:39] VITALS: BP 158/78
--- OUTSIDE RECORDS SUMMARY | 2025-07-07 15:42 | XMS_ITS | Encounter Summary ---
Author Organization [facility] Address [address] [place] [address] Phone Care Team Providers Care Test Director Name Role Phone Dinesh Feliz SENIOR MICROSTRATEGY DEVELOPER Primary Care Provider + Encounter Details Date Type Department Care Team (Late st Contact Info) Description 04/16/2019 Procedure Pass [facility],Outside Imaging [address] [place] [address] Social History Tobacco Use Types Packs/Day Years [...] on filedocumented in this encounter Care Teams Test Director Relationship Specialty Start Date End Date Dinesh Feliz NP [address] [place] [address] PCP - General Family Medicine 04/01/19 documented as of this encounter Additional Source Comments The information contained in this document represents components of the legal health record. It is not the complete legal health record.[facility]
--- OUTSIDE RECORDS SUMMARY | 2025-07-07 15:42 | XMS_ITS | Encounter Summary ---
Author Organization [facility] Address [address] [facility] [address] [place] [address] Phone Care Team Providers Care Assembler Wire Mesh Gate Name Role Phone Dinesh Feliz MUD ENGINEER Primary Care Provider + Reason for Referral * MRI/CAT Scan - Closed Specialty Diagnoses / Procedures Referred By Contac t Referred To Contact Procedures MRI Pelvis (Soft Tissue) Outside (No Interpretation) System, Provider Not In, PhD [facility] [address] [place] [address] Referral ID Status Reason Start Date Expiration Date Visits Re quested Visits Authorized [id number] Closed 04/16/2019 04/15/2020 1 1 Encounter Details Date Type Department Care Team (Late st Contact Info) Description 04/16/2019 Ancillary Orders [facility],Outside Imaging [address] [place] [address] System, Provider Not In, PhD [facility] [address] [place] [address] Social History Tobacco Use Types Packs/Day Years [...] on filedocumented in this encounter Care Teams Assembler Wire Mesh Gate Relationship Specialty Start Date End Date Dinesh Feliz NP [facility] [place] [address] PCP - General Family Medicine 04/01/19 documented as of this encounter Additional Source Comments The information contained in this document represents components of the legal health record. It is not the complete legal health record.[facility]
--- OUTSIDE RECORDS SUMMARY | 2025-07-07 15:42 | XMS_ITS | Clinical Summary ---
Author Organization [facility] Address [address] [place] [address] Phone Care Team Providers Care Gig Tender Name Role Phone Dinesh Feliz NP Primary [...] Description 05/21/2025 11:30 AM EDT Office Visit [facility] Hematology Oncology [address] [place] [phone] Nikki Armenta MD Adenocarcinoma of right lung, stage 1 (CMS/HCC V24, CMS/HCC V28) (Primary Dx); History of lung cancer; History of prostate cancer 04/08/2025 10:15 AM EDT Office Visit Thoracic Surgery - [place] [address] [facility] [address] [place] [phone] Billie Amin PA History of lung cancer from Last 3 Months Surgical History Surgery Date Site/Laterality Comments CARDIAC VALVE SURGERY PROCEDURE:CARDIAC VALVE SURGERY PROSTATE SURGERY PROCEDURE:PROSTATE SURGERY CORONARY ARTERY BYPASS GRAFT PROCEDURE:CORONARY ARTERY BYPASS GRAFT OTHER SURGICAL HISTORY 08/27/2023 Right RLL Lobectomy Medical History Medical History Date Comments Prostate cancer ([facility] V24, [facility] V28) DX:Prostate cancer (HCC) Coronary artery disease DX:Coron chaya artery disease Lung cancer ([facility] V24, [facility] V28) DX:Lung cancer (HCC) RLL Hypertension DX:Hypertension 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
--- OUTSIDE RECORDS SUMMARY | 2025-07-07 15:42 | XMS_ITS | Clinical Summary ---
Author Organization [facility] Address [address] [facility] [address] [place] [address] Phone Care Team Providers Care Basket Weaver Name Role Phone Dinesh Feliz EDUCATIONAL SPECIALIST Primary Care Provider + Medications sulfaSALAzine (AZULFIDINE) [...] Take 5 mg by mouth daily. Active jdrzpatq-zou-wh rrous gluconate (CENTRUM WITH IRON) 9 mg [...] EDT) CREATININE 0.90 0.5 - 1.5 mg/dL [facility] EGFR 88 >59 mL/min/1.7 3m2 [facility] Comment:If patient is black, multiply result by 1.159. Estimated glomerular filtration rate calculated using the CKD-EPI equation. Blood 04/01/2019 3:47 PM EDT 04/01/2019 3:52 PM EDT Madelaine Potts MD LAB BLOOD ORDERABLES Final Result [facility] [address] [place] [address] from Last 3 Months or Most Recently Relevant to Health Maintenance Insurance MEDICARE PART A & B [facility] PPO EPO MEDICARE PART A & B [facility] PPO EPO MEDICARE PART A & B [facility] PPO EPO [facility] PPO EPO [facility] PPO EPO MEDICARE PART A & B [facility] PPO EPO MEDICARE PART A & B [facility] PPO EPO MEDICARE PART A & B [facility] PPO EPO MEDICARE PART A & B [facility] PPO EPO Care Teams Basket Weaver Relationship Specialty Start Date End Date Dinesh Feliz NP [address] [place] [address] PCP - General Family Medicine 04/01/19 Additional Source Comments The information contained in this document represents components of the legal health record. It is not the complete legal health record.[facility]
--- OUTSIDE RECORDS SUMMARY | 2025-07-07 15:42 | XMS_ITS | Patient Health Record ---
Author Organization [facility] Address [address] [place] [address] Care Team Providers Care Automatic Operator Name Role Phone NERY SNEED Primary Care Provider Aston Grant [phone] Allergies No Known Allergies Reason For Referral [...] Problem Screening for malignant neoplasm of colon (744953801) Encounter for screening for malignant neoplasm of colon (Z12.11) Active confirmed Problem History of adenomatous polyp of colon (198175431) History of adenomatous polyp of colon (Z86.010) Active confirmed Problem History of polyp of colon (situation) (867340640) Personal history of colonic polyps (Z86.010) Active confirmed Problem Diverticular disease of colon (311517395) Diverticulosis of large intestine without perforation or abscess without bleeding (K57.30) Active confirmed Problem Gastroesophageal reflux disease (264757969) Gastroesophageal reflux disease (K21.9) Active confirmed Problem Duodenal ulcer with hemorrhage (36330042) Duodenal ulcer with hemorrhage (K26.4) Active confirmed Problem Chronic gastritis (8008456) Gastritis, chronic (K29.50) Active confirmed Problem 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) Active confirmed Problem Gastroesophageal reflux disease with esophagitis (disorder) (264763887) Gastroesophageal reflux disease with esophagitis without hemorrhage (K21.00) Active confirmed Plan Of Treatment Future Test Test Name Order Date UPPER GI ENDOSCOPY 08/05/2012 COLONOSCOPY 08/05/2012 COLONOSCOPY 10/17/2017 UPPER GI ENDOSCOPY 09/18/2023 COLONOSCOPY 09/18/2023 Insurance Providers Payer Name Payer Address Payer Phone Subscriber Number Group Number Insured Name Patient Relationship to Insured Coverage Start Date Coverage End Date MEDICARE OF [place] [address] [facility] [place] [address] [id number] LUIS FELIPE GARNICA Self - patient is the insured [facility] [address] [place], [place] [id number] DANIKALUIS FELIPE Self - patient is the insured Medical (General) History Medical History History ICD Code Ulcerative Colitis--diagnose d in the -colonoscopy in 09/2012--no active colitis nor polyps--bx neg. for dysplasia; tubular adenoma removed in 2007; colonoscopy in 12/2017 neg. for active colitis nor dysplasia, 1 small tubular adenoma removed. Hyperlipidemia [place] 1994, 5V CABG in 1995-no prolems sinc [...]
--- OUTSIDE RECORDS SUMMARY | 2025-07-07 15:42 | XMS_ITS | Encounter Summary ---
Author Organization [facility] Address [address] [place] [address] Care Team Providers Care Well Drill Operator Rotary Drill Name Role Phone Dinesh Feliz Primary Care Provider [phone] Encounter Details Date Type Department Care Team Description 10/04/[address] [facility] Oncology Services [address] [place] [address] [facility] Social History Tobacco Use Types Packs/Day [...] on filedocumented in this encounter Care Teams Well Drill Operator Rotary Drill Relationship Specialty Start Date End Date Dinesh Feliz [address] [facility] [place] [address] PCP - General Family Medicine 09/04/23 documented as of this encounter
--- OUTSIDE RECORDS SUMMARY | 2025-07-07 15:43 | XMS_ITS | Encounter Summary ---
Author Organization [facility] Address [address] [place] [address] Phone Care Team Providers Care Recreation Establishment Manager Name Role Phone Dinesh Feliz SOCIAL MEDIA MARKETING SPECIALIST Primary Care Provider + Encounter Details Date Type Department Care Team (Late st Contact Info) Description 04/01/2019 Procedure Pass [facility] [address] [place] [address] Social History Tobacco Use Types Packs/Day Years [...] on filedocumented in this encounter Care Teams Recreation Establishment Manager Relationship Specialty Start Date End Date Dinesh Feliz NP [address] [facility] [place] [address] PCP - General Family Medicine 04/01/19 documented as of this encounter Additional Source Comments The information contained in this document represents components of the legal health record. It is not the complete legal health record.[facility]
--- OUTSIDE RECORDS SUMMARY | 2025-07-07 15:43 | XMS_ITS | Clinical Summary ---
Author Organization [facility] Address [address] [place] [address] Care Team Providers Care Material Expeditor Name Role Phone Dinesh Feliz Primary Care Provider [phone] Allergies No known active allergies Medications Medication [...] age to complete this topic Care Teams Material Expeditor Relationship Specialty Start Date End Date Dinesh Feliz [address] [facility] [address] PCP - General Family Medicine 09/04/23
== END 2025-07-07 14:49 | disposition home or self-care (01) ==
LOC: HO.HMCC 12:20
PROVIDERS: PCP Nurse Practitioner Family; Visit Provider Nurse Practitioner Family
DX: Z00.01 Encounter for general adult medical examination with abnormal findings (principal); L98.9 Disorder of the skin and subcutaneous tissue, unspecified; I10 Essential (primary) hypertension

== ENCOUNTER → 2025-07-07 12:19 | Outpatient (BNVA) | payer MEDICARE, BC, SELFPAY | PROVIDERS: PCP Nurse Practitioner Family; Visit Provider Nurse Practitioner Family | DX: Z00.01 Encounter for general adult medical examination with abnormal findings (principal); I10 Essential (primary) hypertension; L98.9 Disorder of the skin and subcutaneous tissue, unspecified | CPT/HCPCS: 99397 ==

== ENCOUNTER → 2025-07-09 08:47 | Outpatient (REF) | payer MEDICARE, BC, SELFPAY ==
--- OUTSIDE RECORDS SUMMARY | 2024-01-22 03:30 | XMS_ITS ---
Author Organization [facility] Address [address] [place] [address] Care Team Providers Care Missile Technician Name Role Phone NERY SNEED Primary Care Provider Aston Grant [phone] REASON FOR VISIT ulcerative rectosigmoiditis,hx polyps,screening,gerd Problems Problem Type SNOMED Code ICD Code Onset Dates Problem Status W/U Status Risk Notes Problem History of polyp of colon (situation) (520975459) Personal history of colonic polyps (Z86.010) Active confirmed Problem Diverticular disease of colon (344684063) Diverticulosis of large intestine without perforation or abscess without bleeding (K57.30) Active confirmed Problem Chronic gastritis (1606519) Gastritis, chronic (K29.50) Active confirmed Problem Gastroesophageal reflux disease (573931829) Gastroesophageal reflux disease (K21.9) Active confirmed Encounters Encounter Location Date Provider Diagnosis [facility] [place] [address] [place] [phone] 01/22/2024 Aston Denis Encounter for screen ing [...] DANIKA LUIS FELIPE ADOB:1950 (75 yo M)Acc No.[id number]:01/22/2024 EGD and COL/MAC Patient: Vance JORGEDUSTY FUNGY Petar Provider: Leda Denis MD :1950 A ge:74 Y S ex:Male Date:01/22/2024 [id number] Pcp:NERY SNEED Subjective: * Chief Complaints: * [...] DOCD, 0528F RCMND FLW-UP 10 YRS DOCD, [address] UPPER GI ENDOSCOPY, BIOPSY * * The named appointment provid er may or may not be the originator of this progress note, and it is not deemed complete until electronically signed by the appointment provider. Sign off status: Pending * Provider: Leda Denis MD Date: 0 01/22/2024 Generated for Ludy patel/Ronny/Millicent on: 1 09:09 AM EDT
--- NOTE | ~2025-07-09 | NM_ITS ---
Lexiscan Myocardial perfusion study Indication: Coronary artery disease Technique: The patient was brought in for a Lexiscan perfusion study on 07/09/2025 and was injected 0.4 mg of Lexiscan intravenously. Within a minute of this injection 30 mCi of sestamibi was given intravenously. Images were obtained using the SPECT gamma camera interlaced with the gating device. Images were obtained in supine position. Resting perfusion study was performed on 07/29/2025. Patient was administered 30 mCi of sestamibi intravenously at rest. Images were then obtained in supine position. Total DLP 72 mGy-cm. Images were processed with the software and compared side to side in short axis, horizontal long axis and vertical long axis views. Findings: Raw aquisition reviewed. The stress perfusion study showed absent tracer uptake in the inferior wall and basal to mid portions. Possibly some subdiaphragmatic tracer uptake. Mildly reduced tracer uptake in the mid anterior wall The gated study shows mildly diminished LV systolic function with calculated LVEF of 51%. LV cavity is dilated in size. The gated study shows almost absent thickening and contractility in the inferior wall. Resting study shows markedly diminished or absent tracer uptake in the basal to mid part of inferior wall. No significant change with CT attenuation correction. Gating at rest reveals inferior akinesis and ejection fraction at 61%. The findings are consistent with fixed basal to mid inferior defect. Mild reversible mid anterior defect. NM/NM cardiolite stress test Impression: 1. Myocardial perfusion imaging study shows basal to mid inferior transmural infarct. Mild midanterior ischemia. 2. Gated LVEF is 51% during stress and 61% during rest. 3. Transient ischemic dilatation present. Calculated TID ratio 1.7. EKG component of the test reported separately. Electronically signed by: Zeb Zepeda MD 07/29/2025 02:30 PM [facility]
--- NOTE | 2025-07-09 08:50 | CA_ITS ---
Acquisition Time: 2025-07-09 08:52:00 Total Exercise Time: 00:02:00 Test Indications: Abnormal ECG ABN ECHO Medications: Protocol: LEXISCAN Max HR: 115 BPM 78% of Pred: 147 BPM Max BP: 162/74 mmHG Max Work Load: 1.0 METS Pharmacological stress test with Lexiscan while pt marches in chair, with reports of lightheadedness, with isolated PVCs, with normotensive response to injection. Nondiagnostiuc EKG for ischemia. In recovery, pt feeling back to baseline. Nuclear images pending. Test reviewed with Dr. Zepeda. Referred By: Kevyn Chapa Electronically Signed By: Herman Mendes
--- OUTSIDE RECORDS SUMMARY | 2025-07-09 09:09 | XMS_ITS | Encounter Summary ---
Author Organization [facility] Address [address] [place] [address] Care Team Providers Care Photographic Developer And Printer Name Role Phone Dinesh Feliz Primary Care Provider [phone] Encounter Details Date Type Department Care Team Description 10/04/2023 Social Work [facility] Oncology Services [address] [place] [address] [facility] Social History Tobacco Use Types Packs/Day [...] on filedocumented in this encounter Care Teams Photographic Developer And Printer Relationship Specialty Start Date End Date Dinesh Feliz [address] [facility] [place] [address] PCP - General Family Medicine 09/04/23 documented as of this encounter
--- OUTSIDE RECORDS SUMMARY | 2025-07-09 09:09 | XMS_ITS | Clinical Summary ---
Author Organization [facility] Address [address] [facility] [address] [place] [address] Phone Care Team Providers Care Truck Striker Name Role Phone Dinesh Feliz HOUSEHOLD APPLIANCES SERVICE TECHNICIAN Primary Care Provider + Medications sulfaSALAzine (AZULFIDINE) [...] Take 5 mg by mouth daily. Active jykkzgks-byw-oj rrous gluconate (CENTRUM WITH IRON) 9 mg [...] EDT) CREATININE 0.90 0.5 - 1.5 mg/dL [facility] EGFR 88 >59 mL/min/1.7 3m2 [facility] Comment:If patient is black, multiply result by 1.159. Estimated glomerular filtration rate calculated using the CKD-EPI equation. Blood 04/01/2019 3:47 PM EDT 04/01/2019 3:52 PM EDT Madelaine Potts MD LAB BLOOD ORDERABLES Final Result [facility] [address] [place] [address] from Last 3 Months or Most Recently Relevant to Health Maintenance Insurance MEDICARE PART A & B [facility] PPO EPO MEDICARE PART A & B [facility] PPO EPO MEDICARE PART A & B [facility] PPO EPO [facility] PPO EPO [facility] PPO EPO MEDICARE PART A & B [facility] PPO EPO MEDICARE PART A & B [facility] PPO EPO MEDICARE PART A & B [facility] PPO EPO MEDICARE PART A & B [facility] PPO EPO Care Teams Truck Striker Relationship Specialty Start Date End Date Dinesh Feliz NP [address] [facility] [place] [address] PCP - General Family Medicine 04/01/19 Additional Source Comments The information contained in this document represents components of the legal health record. It is not the complete legal health record.[facility]
--- OUTSIDE RECORDS SUMMARY | 2025-07-09 09:09 | XMS_ITS | Encounter Summary ---
Author Organization [facility] Address [address] [place] [address] Phone Care Team Providers Care Manager Logistic Name Role Phone Dinesh Feliz PRE WAVE ASSEMBLER Primary Care Provider + Encounter Details Date Type Department Care Team (Late st Contact Info) Description 04/16/2019 Procedure Pass [facility],Outside Imaging [address] [place] [address] Social History Tobacco Use Types Packs/Day Years [...] on filedocumented in this encounter Care Teams Manager Logistic Relationship Specialty Start Date End Date Dinesh Feliz NP [facility] [place] [address] PCP - General Family Medicine 04/01/19 documented as of this encounter Additional Source Comments The information contained in this document represents components of the legal health record. It is not the complete legal health record.[facility]
--- OUTSIDE RECORDS SUMMARY | 2025-07-09 09:09 | XMS_ITS | Clinical Summary ---
Author Organization [facility] Address [address] [place] [address] Phone Care Team Providers Care Mainframe Developer Name Role Phone Dinesh Feliz NP Primary [...] 05/21/2025 11:30 AM EDT Office Visit [facility] Hematology Oncology [address] [place] [phone] Nikki Armenta MD Adenocarcinoma of right lung, stage 1 (CMS/HCC V24, CMS/HCC V28) (Primary Dx); History of lung cancer; History of prostate cancer 04/08/2025 10:15 AM EDT Office Visit Thoracic Surgery - [place] [address] [facility] [address] [place] [phone] Billie Amin PA History of lung cancer from Last 3 Months Surgical History Surgery Date Site/Laterality Comments CARDIAC VALVE SURGERY PROCEDURE:CARDIAC VALVE SURGERY PROSTATE SURGERY PROCEDURE:PROSTATE SURGERY CORONARY ARTERY BYPASS GRAFT PROCEDURE:CORONARY ARTERY BYPASS GRAFT OTHER SURGICAL HISTORY 08/27/2023 Right RLL Lobectomy Medical History Medical History Date Comments Prostate cancer ([facility] V24, [facility] V28) DX:Prostate cancer (HCC) Coronary artery disease DX:Coron chaya artery disease Lung cancer ([facility] V24, [facility] V28) DX:Lung cancer (HCC) RLL Hypertension DX:Hypertension 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[facility] V24, [facility] 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
--- OUTSIDE RECORDS SUMMARY | 2025-07-09 09:09 | XMS_ITS | Patient Health Record ---
Author Organization [facility] Address [address] [place] [address] Care Team Providers Care Revenue Director Name Role Phone NERY SNEED Primary Care Provider Aston Grant [phone] Allergies No Known Allergies Reason For Referral [...] Problem Screening for malignant neoplasm of colon (219114312) Encounter for screening for malignant neoplasm of colon (Z12.11) Active confirmed Problem History of adenomatous polyp of colon (463219694) History of adenomatous polyp of colon (Z86.010) Active confirmed Problem History of polyp of colon (situation) (573955626) Personal history of colonic polyps (Z86.010) Active confirmed Problem Diverticular disease of colon (576220863) Diverticulosis of large intestine without perforation or abscess without bleeding (K57.30) Active confirmed Problem Gastroesophageal reflux disease (507562128) Gastroesophageal reflux disease (K21.9) Active confirmed Problem Duodenal ulcer with hemorrhage (54845846) Duodenal ulcer with hemorrhage (K26.4) Active confirmed Problem Chronic gastritis (7715081) Gastritis, chronic (K29.50) Active confirmed Problem 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) 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) Active confirmed Problem Gastroesophageal reflux disease with esophagitis (disorder) (028289548) Gastroesophageal reflux disease with esophagitis without hemorrhage [...] MEDICARE OF [place] [address] [place] [address] [id number] LUIS FELIPE GARNICA Self - patient is the insured [facility] [address] [place], [place] [id number] DANIKALUIS FELIPE Self - patient is the insured Medical (General) History Medical History History ICD Code Ulcerative Colitis--diagnose d in the -colonoscopy in 09/2012--no active colitis nor polyps--bx neg. for dysplasia; tubular adenoma removed in 2007; colonoscopy in 12/2017 neg. for active colitis nor dysplasia, 1 small tubular adenoma removed. Hyperlipidemia [place] 1994, 5V CABG in 1995-no prolems sinc [...]
--- OUTSIDE RECORDS SUMMARY | 2025-07-09 09:09 | XMS_ITS | Encounter Summary ---
Author Organization [facility] Address [address] [facility] [address] [place] [address] Phone Care Team Providers Care Gas And Oil Servicer Name Role Phone Dinesh Feliz DIETARY AIDE TEACHER Primary Care Provider + Reason for Referral * MRI/CAT Scan - Closed Specialty Diagnoses / Procedures Referred By Contac t Referred To Contact Procedures MRI Pelvis (Soft Tissue) Outside (No Interpretation) System, Provider Not In, PhD [employer] [address] [place] [address] Referral ID Status Reason Start Date Expiration Date Visits Re quested Visits Authorized [id number] Closed 04/16/2019 04/15/2020 1 1 Encounter Details Date Type Department Care Team (Late st Contact Info) Description 04/16/2019 Ancillary Orders [facility],Outside Imaging [address] [place] [address] System, Provider Not In, PhD [facility] [address] [place] [address] Social History Tobacco Use Types Packs/Day Years [...] on filedocumented in this encounter Care Teams Gas And Oil Servicer Relationship Specialty Start Date End Date Dinesh Feliz NP [facility] [place] [address] PCP - General Family Medicine 04/01/19 documented as of this encounter Additional Source Comments The information contained in this document represents components of the legal health record. It is not the complete legal health record.[facility]
--- OUTSIDE RECORDS SUMMARY | 2025-07-09 09:09 | XMS_ITS | Clinical Summary ---
Author Organization [facility] Address [address] [place] [address] Care Team Providers Care Sewing Machine Adjuster Name Role Phone Dinesh Feliz Primary Care Provider [phone] Allergies No known active allergies Medications Medication [...] age to complete this topic Care Teams Sewing Machine Adjuster Relationship Specialty Start Date End Date Dinesh Feliz [address] [place] [address] PCP - General Family Medicine 09/04/23
--- OUTSIDE RECORDS SUMMARY | 2025-07-09 09:10 | XMS_ITS | Encounter Summary ---
Author Organization [facility] Address [address] [place] [address] Phone Care Team Providers Care Security Administrator Name Role Phone Dinesh Feliz TRAIN OPERATIONS SUPERVISOR Primary Care Provider + Encounter Details Date Type Department Care Team (Late st Contact Info) Description 04/01/2019 Procedure Pass [facility] [address] [place] [address] Social History Tobacco Use Types Packs/Day Years [...] on filedocumented in this encounter Care Teams Security Administrator Relationship Specialty Start Date End Date Dinesh Feliz NP [address] [facility] [address] PCP - General Family Medicine 04/01/19 documented as of this encounter Additional Source Comments The information contained in this document represents components of the legal health record. It is not the complete legal health record.[facility]
== END ==
LOC: HO.CARD 08:47
PROVIDERS: PCP Nurse Practitioner Family; Visit Provider Internal Medicine Cardiovascular Disease
DX: I25.5 Ischemic cardiomyopathy (principal); I50.20 Unspecified systolic (congestive) heart failure; I25.10 Atherosclerotic heart disease of native coronary artery without angina pectoris; R94.31 Abnormal electrocardiogram [ECG] [EKG]; R93.1 Abnormal findings on diagnostic imaging of heart and coronary circulation
CPT/HCPCS: 78452; 93017; A9500; J0280; J2785

== ENCOUNTER → 2025-07-09 08:50 | Outpatient (BNV) | payer MEDICARE, BC, SELFPAY | PROVIDERS: PCP Nurse Practitioner Family | DX: I49.3 Ventricular premature depolarization (principal); R42 Dizziness and giddiness | CPT/HCPCS: 78452; 93016; 93018 ==

== ENCOUNTER 2025-08-03 14:21 | Outpatient (AMB) | payer MEDICARE, BC, SELFPAY ==
--- NOTE | 2025-08-03 14:32 | A.OFFVIS_ITS ---
Vital Signs 08/03/25 14:33 Height 5 ft 5 in Weight 182 lb 15.739 oz BMI 30.4 BP 138/80 Blood Pressure Location Lt brachial Position Sitting Pulse 84 Intake Visit Reasons: f/u abnormal stress results Intake Note: Follow-up abnormal stress results Forensic Materials Engineer Required: No Allergies No Known Allergies (No Known Allergies*) Allergy (Verified 07/07/25 13:19) Medication List - Last Reconciled 08/03/25 by SOUMYA Madsen amlodipine 5 mg PO DAILY aspirin 81 mg PO DAILY bromfenac 0.09% 1 drp ophthalmic-Right DAILY evolocumab (Repatha SureClick) 140 mg subcut Q2W 30 days ezetimibe 10 mg PO DAILY mesalamine 800 mg (2 x 400 mg) PO BID multivitamin (Daily Multi-Vitamin tablet) 1 tab PO DAILY omeprazole 20 mg PO DAILY rosuvastatin 40 mg PO DAILY HPI HPI f/u abnormal stress results: Details: The patient is a 75 year old individual presenting for follow up after a recent nuclear stress test. The patient's cardiac history includes hypertension, hyperlipidemia, coronary artery disease, and aortic stenosis. The patient underwent bypass surgery in 1995 and had a transcatheter aortic valve replacement two years ago. A cardiac catheterization prior to TAVR on 11/28/2021 showed occluded [place] coronary arteries (LAD, LCx, RCA) and some occluded SVG grafts (D1, D2, PDA), with a patent SVG to OM and a patent EGAN to the LAD. Prior to that, an exercise stress test had shown EKG changes indicative of ischemia. A recent echocardiogr am from 05/28/2025 showed a reduced ejection fraction of 40%, moderate septal asymmetric hypertrophy, and a normally functioning bioprosthetic aortic valve. A nuclear stress test on 07/09/2025 showed a basal to mid-inferior transmural infarct and mild mid-anterior ischemia, with a stress EF of 51% and rest EF of 61%. The patient reports feeling well and denies any new chest pain, pressure, palpit ations, or leg swelling. The patient experiences occasional shortness of breath with activity, but it is not sustained. The patient's activity level is low, although the patient climbs stairs at home without issue, noting improvement since the aortic valve replacement. Other medical history includes lung cancer, for which a portion of the lung was removed, with ongoing surveillance via CT scans. Recent labs showed elevated liver enzymes, and the patient is scheduled for a liver ultrasound. The patient is adherent with medications, including Repatha injections every two weeks, which has significantly lowered LDL cholesterol. The patient takes amlodipine 5 mg for blood pressure and has been asked by the PCP to monitor blood pressure at home due to previously high readings. is present. [facility] Medical History Aortic stenosis CAD (coronary artery disease) Erectile dysfunction Ulcerative colitis Duodenal bulb ulcer Dyslipidemia HTN (hypertension) Surgical History S/P TAVR (transcatheter aortic valve replacement) H/O radical prostatectomy History of eye surgery History of discectomy History of bunionectomy History of heart bypass surgery Family History Father No problems noted. Mother Smoker Emphysema, unspecified Maternal Grandfather No problems noted. Maternal Grandmother Stroke Diabetes mellitus Amputation of leg Paternal Grandfather Cancer Paternal Grandmother No problems noted. Other Substance use disorder Social History Housing: House Alcohol intake: current Patient Tobacco Use Status: Former Tobacco user e-Cigarette/Vaping Use: Never Used Second Hand Smoke Exposure: No service: No Current occupational status: retired Cognitive needs: No Hearing needs: No Vision needs: No Review of Systems Const All systems reviewed & are unremarkable except as noted in HPI and below Denies chills, Denies fatigue, Denies fever(s), Denies frequent falls, Denies weakness, Denies weight gain and Denies weight loss ENT Denies dizziness Card Denies chest pain, Denies leg edema, Denies lightheadedness, Denies palpitations, Denies dyspnea, Denies dyspnea on exertion, Denies orthopnea and Denies other (loss of consciousness) Resp Denies cough, Denies dyspnea and Denies dyspnea on exertion GI Denies hematochezia and Denies change in stool character Musc Denies abnormal gait, Denies muscle weakness, Denies numbness, Denies radiating pain into limb and Denies tingling Neuro Denies abnormal gait, Denies dizziness, Denies frequent falls, Denies numbness, Denies tingling and Denies weakness Endo Denies fatigue and Denies palpitations Physical Exam Vital Signs: Last Vital Signs Pulse 84 08/03/25 14:33 BP 138/80 08/03/25 14:33 BMI result Body Mass Index 30.4 Const General: cooperative, healthy appearing, comfortable and no acute distress Orientation/consciousness: patient oriented x3 Neck Neck: Yes normal visual inspection Carotids: normal carotid upstroke Resp Effort & Inspection: normal respiratory effort Auscultation: clear to auscultation bilaterally, no crackles, no rales, no rhonchi and no wheezes Cardio Rate: regular rate Rhythm: regular rhythm Heart sounds: S1 normal heart sound present, S2 normal heart sound present, no gallops, no murmurs and no rubs Neuro General: patient oriented x3 Extrem General: Yes normal to inspection, No no pedal edema and No calf tenderness Psych Appearance: grossly normal Mental Status: mental status grossly normal Speech and movement: Normal speech and movement present Assessment & Plan Assessment & Plan (1) CAD (coronary artery disease): Code(s): I25.10 - Atherosclerotic heart disease of upper [place] coronary artery without angina pectoris Category: Medical Qualifiers: Coronary Disease-Associated Artery/Lesion type: unspecified vessel or lesion type [place] vs. transplanted heart: upper [place] heart Associated angina: unspecified whether angina present Qualified Code(s): I25.10 - Atherosclerotic heart disease of [place] coronary artery without angina pectoris Plan: CAD with prior five-vessel coronary artery bypass grafting. Cardiac catheterization from 11/28/2021 is showing occluded upper [place] vessels, occluded SVG graft to D1, D2 and PDA. He does have patent SVG to OM1 and EGAN to LAD grafts. Recent echo is showing a reduced EF 40% with akinetic basal inferior segment. The wall motion abnormality has been seen on his prior echocardiogram as well. For the reduced EF he did have a nuclear stress test which did show basal to mid inferior transmural infarct with mild mid anterior ischemia. No prior nuclear stress test for comparison. He is reporting no new symptoms. He is not on beta-jose david, Nemesio/Arb for unclear reason. He is on amlodipine for blood pressure control and aspirin indefinitely. He is on rosuvastatin, Zetia and Repatha for LDL goal less than 70. No med changes at present. Will review with his gauger chief delivery. (2) S/P TAVR (transcatheter aortic valve replacement): Comment: 26 mm Gris 3, 04/2023 Code(s): Z95.2 - Presence of prosthetic heart valve Category: Surgical Plan: History of severe aortic stenosis status post TAVR 04/2023. His most recent echo is showing that aortic valve. (3) HTN (hypertension): Comment: Controlled Code(s): I10 - Essential (primary) hypertension Category: Medical Qualifiers: Hypertension type: unspecified Qualified Code(s): I10 - Essential (primary) hypertension Plan: Blood pressure goal less than 130/80. Mild elevation today. He is monitoring his readings at home and reporting them to his PCP. May be adding additional cardiac medications to help with this following review with gauger chief delivery. (4) Dyslipidemia: Code(s): E78.5 - Hyperlipidemia, unspecified Category: Medical Plan: LDL goal less than 70. Labs done 06/30/2025 showing LDL 24. Continue rosuvastatin, Zetia and Repatha. Plan I discussed the results of the recent echocardiogram and nuclear stress test with the patient. I explained that the echo showed a reduced heart pumping power of 40% and the stress test showed an old heart attack and a small area of mild ischemia. I noted that these findings may not be new given the extensive history of coronary artery disease and prior revascularization. Since the patient is doing well and is not having any new symptoms like chest pain or shortness of breath, I advised that no medication changes at this time. I recommended that the patient continues to monitor blood pressure at home and follow up with the primary care physician, who can adjust the amlodipine dose if readings are persistently high. I will make sure Dr. Chapa is aware of the recent test results for his records. I scheduled a follow-up appointment in six months with Dr. Durán. I instructed the patient to contact us if any new or concerning symptoms develop, including chest pain, trouble breathing, rapid heartbeats, or swollen legs. He will be called if we are planning to change medication regime in near future. Patient Instructions: - Continue taking all your medications as they have been prescribed. - Keep checking your blood pressure at home and send the results to your primary care doctor, Dinesh. - Your primary care doctor may increase your blood pressure medicine if your readings at home are too high. - We have scheduled a follow-up appointment for you with Dr. Chapa in 6 months. - Please call our office if you develop any new symptoms, such as chest pain, trouble breathing, a fast heartbeat, or swelling in your legs. Patient was informed and verbally consented to the use of an ambient scribe for clinic note documentation during this visit. Visit time spent on chart review, interview, assessment, orders, documentation. Coding Level of Care Code Est Pt Level 4 (81901) Complex visit Add On G2211 Diagnoses Coronary artery disease involving upper [place] heart, unspecified vessel or lesion typ e, unspecified whether angina present I25.10 Coronary Disease-Associated Artery/Lesion type: unspecified vessel or lesion type [place] vs. transplanted heart: upper [place] heart Associated angina: unspecified whether angina present S/P TAVR (transcatheter aortic valve replacement) Z95.2 Hypertension, unspecified type I10 Hypertension type: unspecified Dyslipidemia E78.5 Time Spent (min) 32
[2025-08-03 14:33] VITALS: BP 138/80; PULSE 84; BMI 30.4
--- OUTSIDE RECORDS SUMMARY | 2025-08-03 18:15 | XMS_ITS | Patient Health Record ---
Author Organization [facility] Address [address] [place] [address] Care Team Providers Care Mortgage Loan Reviewer Name Role Phone NERY SNEED Primary Care Provider Aston Grant [phone] Allergies No Known Allergies Reason For Referral No Information Medications Medication SIG (Take, Route, Frequency, Duration) Notes Start Date End Date Status Rosuvastatin Calcium 40 MG Tablet 1 tablet Oral Once a day Active Lisinopril 5 MG Tablet 1 tablet Oral Onc e a day Active Multi Vitamin/Minerals - Tablet one tablet Orally once a day Active Ezetimibe 10 MG Tablet 1 tablet Oral Onc e a day Active sulfaSALAzine 500 MG Tablet Delayed Release 2 tablets Orally BID Not-Taking/PRN Tamsulosin HCl 0.4 MG Capsule 1 capsule Oral Once a day Active Metoprolol Tartrate 50 MG Tablet 1 tablet with food Orally as directed Active Evolocumab 140 MG/ML Solution Prefilled Syringe 1 mL Subcutaneous; Duration: 30 day(s) Active Clopidogrel Bisulfate 75 MG Tablet 1 tablet Orally Once a day; Duration: 30 day(s) Active Multi Vitamin - Tablet 1 tablet Orally O nce a day; Duration: 30 day(s) Active Mesalamine 400 MG Capsule Delayed Release 2 tablets Orally Twice a day Active Omeprazole 20 MG Capsule Delayed Release TAKE 1 CAPSULE BY MOUTH EVERY DAY; Duration: 90 Active Polyethylene Glycol - Powder as directed Active Sennosides 8.6 MG Tablet 2 tablets at be dtime as needed Orally Once a day; Duration: 30 day(s) Active Aspir-Low 81 MG Tablet Delayed Release 1 tablet Orally Once a day; Duration: 30 day(s) Active amLODIPine Besylate 5 MG Tablet 1 tablet Orally Once a day; Duration: 30 day(s) Active Docusate Sodium 100 MG Capsule 1 capsule as needed Orally Once a day; Duration: 30 day(s) Active Acetaminophen 325 MG Capsule 1 tablet as needed Orally every 6 hrs Active oxyCODONE HCl 5 MG Tablet 1 tablet as needed Orally every 6 hrs Active Folic Acid 1 MG Tablet 1 tablet Orally O nce a day; Duration: 30 Active Lidocaine 4 % Patch 1 patch as needed Externally Once a day Active Immunizations Vaccine Route Administration Date Status Comme nts Influenza Unknown 04/09/2018 Administered Influenza Unknown 09/09/2023 Administered Social History Tobacco Use: Social History Observation Description Date Details (start date - stop date) Former Smoker NA - NA Social History Drugs/Alcohol: Social Info Question Answer Notes Alcohol Screen Did you have a drink containing alcohol in the past year? Yes How often did you have a drink containing alcohol in the past year? 2 to 4 times a month (2 points) How many drinks did you have on a typical day when you were drinking in the past year? 3 or 4 drinks (1 point) How often did you have 6 or more drinks on one occasion in the past year? Less than monthly (1 point) Points 4 Interpretation Positive Tobacco Use: Social Info Question Answer Notes Tobacco Use/Smoking Patient is a former smoker When did you stop smoking? 39 years ago How long has it been since you last smoked? 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 Section Notes: Nonsmoker x 33 years; no sig nificant alcohol Nonsmoker x 33 years; no sig nificant alcohol Nonsmoker x 33 years; no sig nificant alcohol Nonsmoker x 33 years; no sig nificant alcohol Problems Problem Type SNOMED Code ICD Code Onset Dates Problem Status W/U Status Risk Notes Problem Screening for malignant neoplasm of colon (756435376) Encounter for screening for malignant neoplasm of colon (Z12.11) Active confirmed Problem History of adenomatous polyp of colon (893364291) History of adenomatous polyp of colon (Z86.010) Active confirmed Problem History of polyp of colon (situation) (571950287) Personal history of colonic polyps (Z86.010) Active confirmed Problem Diverticular disease of colon (808101174) Diverticulosis of large intestine without perforation or abscess without bleeding (K57.30) Active confirmed Problem Gastroesophageal reflux disease (813914728) Gastroesophageal reflux disease (K21.9) Active confirmed Problem Duodenal ulcer with hemorrhage (97640988) Duodenal ulcer with hemorrhage (K26.4) Active confirmed Problem Chronic gastritis (8464231) Gastritis, chronic (K29.50) Active confirmed Problem Chronic ulcerative rectosigmoiditis (70675019) 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) Active confirmed Problem Gastroesophageal reflux disease with esophagitis (disorder) (869151219) Gastroesophageal reflux disease with esophagitis without hemorrhage (K21.00) Active confirmed Plan Of Treatment Future Test Test Name Order Date UPPER GI ENDOSCOPY 08/05/2012 COLONOSCOPY 08/05/2012 COLONOSCOPY 10/17/2017 UPPER GI ENDOSCOPY 09/18/2023 COLONOSCOPY 09/18/2023 Insurance Providers Payer Name Payer Address Payer Phone Subscriber Number Group Number Insured Name Patient Relationship to Insured Coverage Start Date Coverage End Date MEDICARE OF [place] [address] [place] [address] [id number] LUIS FELIPE GARNICA Self - patient is the insured [facility] [address] [place], [place] [id number] [phone] [id number] LUIS FELIPE GARNICA Self - patient is the insured Medical (General) History Medical History History ICD Code Ulcerative Colitis--diagnose d in the -colonoscopy in 09/2012--no active colitis nor polyps--bx neg. for dysplasia; tubular adenoma removed in 2007; colonoscopy in 12/2017 neg. for active colitis nor dysplasia, 1 small tubular adenoma removed. Hyperlipidemia [place] 1994, 5V CABG in 1995-no prolems [facility] e-sees Dr. Chapa Denies DM,CVA,Lung disease,renal disease [...]
--- OUTSIDE RECORDS SUMMARY | 2025-08-03 18:15 | XMS_ITS | Encounter Summary ---
Author Organization [facility] Address [address] [place] [address] Phone Care Team Providers Care Vice President For Philanthropy Name Role Phone Dinesh Feliz FOAM MOLDER Primary Care Provider + Reason for Referral * MRI/CAT Scan - Closed Specialty Diagnoses / Procedures Referred By Contac t Referred To Contact Procedures MRI Pelvis (Soft Tissue) Outside (No Interpretation) System, Provider Not In, PhD [facility] [address] [place] [address] Referral ID Status Reason Start Date Expiration Date Visits Re quested Visits Authorized [id number] Closed 04/16/2019 04/15/2020 1 1 Encounter Details Date Type Department Care Team (Late st Contact Info) Description 04/16/2019 Ancillary Orders [facility],Outside Imaging [address] [place] [address] System, Provider Not In, PhD [facility] [address] [place] [address] Social History Tobacco Use Types Packs/Day Years [...] on filedocumented in this encounter Care Teams Vice President For Philanthropy Relationship Specialty Start Date End Date Dinesh Feliz NP [facility] [place] [address] PCP - General Family Medicine 04/01/19 documented as of this encounter Additional Source Comments The information contained in this document represents components of the legal health record. It is not the complete legal health record.[facility]
--- OUTSIDE RECORDS SUMMARY | 2025-08-03 18:15 | XMS_ITS | Clinical Summary ---
Author Organization [facility] Address [address] [place] [address] Phone Care Team Providers Care Older Adult Social Work Specialist Name Role Phone Dinesh Feliz NP Primary [...] Description 05/21/2025 11:30 AM EDT Office Visit [facility] Hematology Oncology [address] [place] [address] Nikki Armenta MD Adenocarcinoma of right lung, stage 1 (CMS/HCC V24, CMS/HCC V28) (Primary Dx); History of lung cancer; History of prostate cancer from Last 3 Months Surgical History Surgery Date Site/Laterality Comments CARDIAC VALVE SURGERY PROCEDURE:CARDIAC VALVE SURGERY PROSTATE SURGERY PROCEDURE:PROSTATE SURGERY CORONARY ARTERY BYPASS GRAFT PROCEDURE:CORONARY ARTERY BYPASS GRAFT OTHER SURGICAL HISTORY 08/27/2023 Right RLL Lobectomy Medical History Medical History Date Comments [place] [place] [facility] V28) DX:Prostate cancer (HCC) Coronary artery disease DX:Coron chaya artery disease Lung cancer ([facility] V24, [facility] V28) DX:Lung cancer (HCC) RLL Hypertension DX:Hypertension 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 [place] [facility] [place] 06/03/2024 Family History Medical History Relation Name Comments Cancer Paternal Grandfather ? colon Relation Name Status Comments Paternal Grandfather Social History Tobacco Use Types Packs/Day Years Used Date Smoking Tobacco: Former Cigarettes 0 Q uit: 09/09/1978 Smokeless Tobacco: Never Alcohol [...] Description 05/25/2026 10:30 AM EDT Office Visit [facility] Hematology Oncology [address] [place] [address] Dustni-Nikki Gomez MD [address] [place] [address] Health Maintenance Due Date Last Done Comments [...] age to complete this topic Insurance MEDICARE [facility] Care Teams Older Adult Social Work Specialist Relationship Specialty Start Date End Date Dinesh Feliz NP [address] [facility] TAMIA Ellis PCP - General 09/04/23
--- OUTSIDE RECORDS SUMMARY | 2025-08-03 18:15 | XMS_ITS | Clinical Summary ---
Author Organization [facility] Address [address] [place] [address] Phone Care Team Providers Care Natural Sciences Professor Name Role Phone Dinesh Feliz PRODUCT DESIGN ENGINEER Primary Care Provider + Medications sulfaSALAzine (AZULFIDINE) [...] Take 5 mg by mouth daily. Active [id number]-ytn-nk rrous gluconate (CENTRUM WITH IRON) 9 mg [...] Procedure Name Priority Date/Time Associated Diagnosis Comments CREATININE WITH ESTIMATED GLOMERULAR FILTRATION RATE (EGFR) Routine 04/01/2019 3:47 PM EDT Prostate cancer from Last 3 Months or Most Recently Relevant to Health Maintenance Results * Creatinine/eGFR (04/01/2019 3:47 PM EDT) CREATININE 0.90 0.5 - 1.5 mg/dL [facility] EGFR 88 >59 mL/min/1.7 3m2 [facility] Comment:If patient is black, multiply result by 1.159. Estimated glomerular filtration rate calculated using the CKD-EPI equation. Blood 04/01/2019 3:47 PM EDT 04/01/2019 3:52 PM EDT Madelaine Potts MD LAB BLOOD BKR ORDERABLES Fi nal Result [facility] [address] [place], [place] [phone] from Last 3 Months or Most Recently Relevant to Health Maintenance Insurance MEDICARE PART A & B [facility] PPO EPO MEDICARE PART A & B [facility] PPO EPO MEDICARE PART A & B [facility] PPO EPO MEDICARE PART A & B [facility] PPO EPO MEDICARE PART A & [place] [address] [place] [address] PPO EPO MEDICARE PART A & B [facility] PPO EPO MEDICARE PART A & B [facility] PPO EPO MEDICARE PART A & B [facility] PPO EPO MEDICARE PART A & B [facility] PPO EPO Care Teams Natural Sciences Professor Relationship Specialty Start Date End Date Dinesh Feliz NP [address] [place] [address] PCP - General Family Medicine 04/01/19 Additional Source Comments The information contained in this document represents components of the legal health record. It is not the complete legal health record.[facility]
--- OUTSIDE RECORDS SUMMARY | 2025-08-03 18:15 | XMS_ITS | Encounter Summary ---
Author Organization [facility] Address [address] [place] [address] Phone Care Team Providers Care Winch Derrick Operator Name Role Phone Dinesh Feliz SOCIAL SERVICE AGENCY DIRECTOR Primary Care Provider + Encounter Details Date Type Department Care Team (Late st Contact Info) Description 04/16/2019 Procedure Pass [facility],Outside Imaging [address] [place] [address] Social History Tobacco Use Types Packs/Day Years [...] on filedocumented in this encounter Care Teams Winch Derrick Operator Relationship Specialty Start Date End Date Dinesh Feliz NP [facility] [place] [address] PCP - General Family Medicine 04/01/19 documented as of this encounter Additional Source Comments The information contained in this document represents components of the legal health record. It is not the complete legal health record.[facility]
--- OUTSIDE RECORDS SUMMARY | 2025-08-03 18:15 | XMS_ITS | Clinical Summary ---
Author Organization [facility] Address [address] [place] [address] Care Team Providers Care Congregational Care Pastor Name Role Phone Dinesh Feliz Primary Care Provider [phone] Allergies No known active allergies Medications Medication [...] age to complete this topic Care Teams Congregational Care Pastor Relationship Specialty Start Date End Date Dinesh Feliz [address] [facility] [place] [address] PCP - General Family Medicine 09/04/23
--- OUTSIDE RECORDS SUMMARY | 2025-08-03 18:15 | XMS_ITS | Encounter Summary ---
Author Organization [facility] Address [address] [place] [address] Care Team Providers Care Chief Deputy Court Clerk Name Role Phone Dinesh Feliz Primary Care Provider [phone] Encounter Details Date Type Department Care Team Description 10/04/2023 Social Work [facility] [address] [place] [address] [facility] Social History Tobacco Use Types [...] on filedocumented in this encounter Care Teams Chief Deputy Court Clerk Relationship Specialty Start Date End Date Dinesh Feliz [address] [facility] [place] [address] PCP - General Family Medicine 09/04/23 documented as of this encounter
--- OUTSIDE RECORDS SUMMARY | 2025-08-03 18:16 | XMS_ITS | Encounter Summary ---
Author Organization [facility] Address [address] [place] [id number] Phone Care Team Providers Care Manager Generation Name Role Phone Dinesh Feliz PATIENT LIAISON Primary Care Provider + Encounter Details Date Type Department Care Team (Late st Contact Info) Description 04/01/2019 Procedure Pass [facility] [address] [place] [address] Social History Tobacco Use Types Packs/Day Years [...] filedocumented in this encounter Care Teams Manager Generation Relationship Specialty Start Date End Date Dinesh Feliz NP [address] [facility] [facility] [place] [address] PCP - General Family Medicine 04/01/19 documented as of this encounter Additional Source Comments The information contained in this document represents components of the legal health record. It is not the complete legal health record.[facility]
== END 2025-08-03 15:08 | disposition home or self-care (01) ==
LOC: HO.HCS 14:22
PROVIDERS: PCP Nurse Practitioner Family; Visit Provider Nurse Practitioner Family
DX: I25.10 Atherosclerotic heart disease of native coronary artery without angina pectoris (principal); Z95.2 Presence of prosthetic heart valve; I10 Essential (primary) hypertension; E78.5 Hyperlipidemia, unspecified
CPT/HCPCS: 99214; G2211

== ENCOUNTER → 2025-08-03 14:21 | Outpatient (BNVA) | payer MEDICARE, BC, SELFPAY | PROVIDERS: PCP Nurse Practitioner Family; Visit Provider Nurse Practitioner Family | DX: I25.10 Atherosclerotic heart disease of native coronary artery without angina pectoris (principal); I10 Essential (primary) hypertension; E78.5 Hyperlipidemia, unspecified; Z95.2 Presence of prosthetic heart valve | CPT/HCPCS: 99212 ==